=== PATIENT | female | born 1940 | race Asian ===

== ENCOUNTER → 2024-02-25 | Outpatient (CLI) | payer OTHER, SELFPAY ==
[2024-02-25 11:15] LABS: Collection Type, Urine Clean Catch
[2024-02-25 11:40] LABS: Basophils % (Auto) 0 % (0-2.5); Eosinophils # (Auto) 0.1 Thou/mm3 (0.0-0.5); Eosinophils % (Auto) 2 % (0-10); Hematocrit 40.2 % (36.0-46.0); Hemoglobin 12.4 g/dL (12.0-16.0); Immature Granulocytes % (Auto) 0 % (0-0); Immature Granulocytes Auto 0.02 Thou/mm3 (0.00-0.00); Lymphocytes # (Auto) 0.7 Thou/mm3 (1.0-4.8); Lymphocytes % (Auto) 12 % (10-50); Mean Corpuscular HGB Conc 30.8 g/dl (31.0-37.0); Mean Corpuscular Hemoglobin 30.3 pg (25.0-35.0); Mean Corpuscular Volume 98 fL (80-100); Monocytes # (Auto) 0.5 Thou/mm3 (0.0-0.8); Monocytes % (Auto) 8 % (0-12); Neutrophils # (Auto) 4.4 Thou/mm3 (1.8-7.7); Neutrophils % (Auto) 77 % (37-80); Nucleated Red Blood Cell % 0 /100 WBC (0); Platelet Count 185 Thou/mm3 (140-440); RDW Standard Deviation 54.2 fL (36.4-46.3); Red Blood Count 4.09 Miln/mm3 (4.00-5.20); White Blood Count 5.6 Thou/mm3 (3.6-11.0)
[2024-02-25 11:48] LABS: Bacteria,Urine Rare; Bilirubin,Urine Negative (Negative); Blood,Urine 1+ (Negative); Clarity,Urine Clear (Clear/Hazy); Color,Urine Yellow (Lt Yel-Yel); Glucose, Urine Negative (Negative); Granular Casts,Urine < 1 /hpf (0-1); Hyaline Casts,Urine < 1 /hpf (0-1); Ketones,Urine Negative (Negative); Leukocyte Esterase,Urine Negative (Negative); Nitrite,Urine Negative (Negative); Protein,Urine 2+ (Neg - Trace); RBC,Urine 3 /hpf (0-3); Specific Gravity,Urine 1.017 (1.001-1.035); Squamous Epithelial Cell,Urine < 1 /hpf (0-5); Transitional Epi Cells,Urine < 1 /hpf (0-5); Urobilinogen,Urine Negative mg/dL (0.0-1.0); WBC,Urine 1 /hpf (0-5)
[2024-02-25 12:00] LABS: Vitamin B12 1065 pg/mL (211-911); Vitamin D 25 Hydroxy Total 29.3 ng/mL (7.3-40.2)
[2024-02-25 12:11] LABS: Alanine Aminotransferase 12 U/L (10-49); Albumin, Serum 4.3 gm/dL (3.4-4.8); Albumin/Globulin Ratio 1.3 (1.2-2.2); Alkaline Phosphatase 72 U/L (46-116); Anion Gap 9 (7-16); Aspartate Amino Transferase 25 U/L (0-34); BUN/Creatinine Ratio 14 Ratio (12-20); Blood Urea Nitrogen 21 mg/dL (9-23); Calcium 9.6 mg/dL (8.3-10.6); Calcium (Corrected) 9.6 mg/dL (8.5-10.1); Cardiac Risk Estimate 2.4 RATIO (3.7-5.6); Chloride 103 mMol/L (98-107); Cholesterol 180 mg/dL (132-200); Creatinine (Component) 1.5 mg/dL (0.6-1.3); Globulin 3.4 gm/dL (2.3-3.5); Glucose 140 mg/dL (74-106); HDL Cholesterol 74 mg/dL (40-60); LDL Cholesterol,Calculated 92 mg/dL (0-130); Osmolality,Calculated 289 (275-295); Potassium 4.4 mMol/L (3.4-5.1); Sodium 143 mMol/L (136-145); Thyroid Stimulating Hormone 5.44 uIU/mL (0.55-4.78); Total Protein 7.7 gm/dL (5.7-8.2); Triglycerides 69 mg/dL (30-150); Uric Acid 8.4 mg/dL (3.1-7.8); eGFR 34 See Note
[2024-02-25 12:26] LABS: Bilirubin,Total 0.7 mg/dL (0.3-1.2)
[2024-03-02 23:33] LABS: Albumin 3.8 g/dL (3.8-4.8); Alpha-1-Globulin 0.3 g/dL (0.2-0.3); Alpha-2-Globulin 0.7 g/dL (0.5-0.9); Beta-1-Globulin 0.4 g/dL (0.4-0.6); Beta-2-globulin 0.5 g/dL (0.2-0.5); Gamma Globulin 1.7 g/dL (0.8-1.7)
[2024-03-03 07:03] LABS: Protein, total, serum 7.5 g/dL (6.1-8.1)
== END | disposition home or self-care (01) ==
LOC: COPL 10:11
PROVIDERS: PCP Internal Medicine; Referring Provider Internal Medicine Cardiovascular Disease; Visit Provider Internal Medicine Cardiovascular Disease
DX: I12.9 Hypertensive chronic kidney disease with stage 1 through stage 4 chronic kidney disease, or unspecified chronic kidney disease (principal); N18.30 Chronic kidney disease, stage 3 unspecified; E78.5 Hyperlipidemia, unspecified
CPT/HCPCS: 36415; 80053; 80061; 81001; 82306; 82607; 84155; 84165; 84443; 84550; 85025

== ENCOUNTER 2024-03-29 11:06 | Emergency (ER) | payer OTHER, SELFPAY ==
[2024-03-29 11:28] VITALS: BP 160/71; PULSE 82; RESP 16; TEMP 36.5; O2SAT 92
--- NOTE | 2024-03-29 11:30 | XR_ITS ---
Examination: CT maxillofacial, without intravenous contrast. 2-D sagittal reconstructions. 3-D reconstructions. Date and time of exam:March 29, 2024, 16 hours INDICATIONS: Patient fell today with injury to the face, facial bruising CTDI: vol (mGy):18 DLP: (mGycm):341 Technique: Multiple axial images of maxillofacial region, 3.0 mm slice thickness. 2-D sagittal and coronal reconstructions. 3-D reconstructions. Low dose protocols were performed. One or more of the following dose reduction techniques were used; automated exposure control, adjustment of the mA and/or KV according to patient size, use of iterative reconstruction technique. Findings: Soft tissue forehead hematoma at least 4.2 x 0.8 x 1.6 cm, soft tissue swelling extends anterior to the right optic globe Frontal bone frontal sinuses intact Orbital rims intact No nasal bone fracture No depression zygomatic arches Maxilla mandible intact IMPRESSION: Soft tissue forehead hematoma. No acute facial fracture
--- NOTE | 2024-03-29 11:30 | XR_ITS ---
Examination: CT brain head without contrast. 2-D sagittal coronal reconstructions Date and time of exam:March 29, 2024 1216 hours INDICATIONS: Patient fell today with injury to the head, head pain CTDI: vol (mGy):48.8 DLP: (mGycm):1013 Technique: Multiple CT axial sections of the brain have been obtained, 5 mm slice thickness. Contrast has not been administered. 2-D sagittal, coronal reconstructions have been obtained Low dose protocols were performed. One or more of the following dose reduction techniques were used; automated exposure control, adjustment of the mA and/or KV according to patient size, use of iterative reconstruction technique. Findings: No significant ventricular enlargement. Intra-axial or extra-axial hemorrhage density is not seen. No mass effect or midline shift Basal cisterns are not remarkable. Fourth ventricle is midline. Cranial vault intact. Right forehead scalp hematoma, soft tissue swelling anterior to the right optic lobe Impression: Negative for acute hemorrhage, mass effect or midline shift
--- NOTE | 2024-03-29 11:30 | XR_ITS ---
Examination: CT cervical spine without contrast 2-D sagittal reconstructions 2-D coronal reconstructions 3-D reconstructions. Exam date and time:March 29, 2024 1216 hours INDICATIONS: Patient fell today, ground-level fall with injury to the neck, neck pain COMPARISON: July 18, 2023 CTDI:vol (mGy) 13.3 DLP: (mGycm) 285 Technique: Multiple 2 mm axial sections of the cervical spine have been obtained. The coronal and sagittal reconstructions have been obtained. 3-D reconstructions have been obtained. Low dose protocols were performed. One or more of the following dose reduction techniques were used; automated exposure control, adjustment of the mA and/or KV according to patient size, use of iterative reconstruction technique. Findings: Axial sections demonstrate intact base of the skull. C1 exhibit satisfactory relationship to the odontoid. No acute cervical vertebral body fracture seen. Alignment posterior spinous processes satisfactory. Impression: No acute cervical fracture.
--- NOTE | 2024-03-29 11:32 | XR_ITS ---
Examination: Wrist, left 3 views Technique: Wrist AP, oblique, lateral 3 views Date and time of exam: March 29, 2024 and 50 hours INDICATIONS: Patient fell today with injury to the wrist, wrist pain FINDINGS: Severe osteopenia No acute fracture No dislocation IMPRESSION: No acute fracture
--- NOTE | 2024-03-29 11:32 | XR_ITS ---
Examination: Knee, right , 3 views Technique: Knee AP, lateral, oblique 3 views Date and time of exam: March 29, 2024 1150 hours INDICATIONS: Patient fell today with injury to the knee, knee pain FINDINGS: Significant osteopenia No fracture or dislocation Soft tissue swelling prepatellar IMPRESSION: No fracture
--- NOTE | 2024-03-29 11:32 | EDNOTE_ITS ---
ED General RME/HPI General Chief complaint: Fall Stated complaint: FACIAL TRAUMA SP FALL Time Seen by Provider: 03/29/24 11:30 Arrival date/time: 03/29/24 11:06 CC: Right sided facial pain HPI patient had a ground-level fall where she tripped. The patient is complaining of left wrist right knee and facial pain. Patient is on Eliquis denies LOC or ALOC no active bleeding at the time of the exam. Localized face pain is 3-4 out of 10 scale. Wrist and knee pain 1-2 on a 10 scale. Related Data Home Medications ?Medication ?Instructions ?Recorded ?Confirmed levothyroxine 50 mcg tablet 50 mcg PO QDAY 10/27/17 05/29/19 (Synthroid) losartan 100 mg tablet (Cozaar) 100 mg PO QDAY 10/27/17 05/29/19 albuterol sulfate 90 mcg/actuation 2 puff inhalation Q8H PRN SOB 05/28/19 05/29/19 aerosol inhaler (Ventolin HFA) allopurinol 300 mg tablet 300 mg PO QDAY 05/28/19 05/29/19 apixaban 5 mg tablet (Eliquis) 5 mg PO BID 05/28/19 05/29/19 fluticasone propionate 220 1 puff inhalation BID 05/28/19 05/28/19 mcg/actuation HFA aerosol inhaler (Flovent HFA) ferrous sulfate 325 mg (65 mg 325 mg PO BID 05/29/19 05/29/19 iron) tablet (Iron (ferrous sulfate)) Previous Rx's ?Medication ?Instructions ?Recorded furosemide 40 mg tablet (Lasix) 40 mg PO QDAY #30 tabs 04/22/23 Allergies Allergy/AdvReac Type Severity Reaction Status Date / Time Penicillins Allergy Unknown Verified 07/18/23 19:19 Review of Systems Review of Systems Narrative Review of Systems: GEN: No fever, no chills, no weight loss EYES: No discharge, no visual changes, no pain HEENT: No ear pain, no congestion, no sore throat PULM: No shortness of breath, no cough, no congestion CV: No chest pain, no dyspnea on exertion, no palpitations GI: No nausea, no vomiting, no diarrhea, no pain, no constipation : No frequency, no urgency, no dysuria MUSC/SKEL: + joint pain, no back pain SKIN: No rash PSYCH: No hallucinations, no depression HEME/LYMPH: No easy bleeding or bruising tendencies NEURO: No weakness, + headache Past Medical History Past Medical History NEUROLOGIC: Negative Seizures CARDIAC: Positive Cardiac Disorders, Atrial Fibrillation (on eliquis,carvedilol) and Hypertension; Negative Congestive Heart Failure RESPIRATORY: Positive Asthma; Negative Chronic Obstructive Pulmonary Disease (COPD) GENITOURINARY: Negative Renal Disease ENDOCRINE: Positive Hypothyroidism; Negative Diabetes Mellitus Type 1 or Diabetes Mellitus Type 2 OTHER HISTORY: Negative Autoimmune Disease, Blood Transfusions or Anesthesia Reactions Family History FAMILY HISTORY: Positive Family Respiratory Disorders (mother had asthma), Family Cardiac Disorders (step-father had heart problems), Family Cancer (sister has lump in breast had sx) and Family Surgery (sister has lump in breast had sx); Negative Family Psychiatric Problems, Family Gastrointestinal Problems or Family Anesthesia Reaction Surgical History SURGICAL: Positive Open Heart Surgery and Valve Replacement Social History SMOKING STATUS: Never smoker SECOND HAND EXPOSURE: No ED Exam Narrative Physical exam: [General: Mild discomfort not in any acute distress Head normocephalic, no step-offs hematomas abrasion induration ulceration or depressions. HEENT: Eyes pupils are PERRLA EOMs are intact nose no rhinorrhea nasal right sided abrasions. Forehead: Significant hematoma to the right forehead with partial-thickness abrasions no active bleeding or lacerations. Mouth pink moist membranes poor dentition uvula is midline swallow symmetrical phonation is normal no active bleeding from the mouth. Ears EACs are partially occluded with cerumen, no active bleeding. Right sided facial abrasions with a small hematoma, no other significant facial asymmetry. Mild tenderness to palpation. Neck is supple nontender full range of motion rotation flexion and extension. No tenderness to palpation of the spinous process of the cervical spine. Chest equal chest rise nontender to palpation Respiratory: Clear to auscultation no wheezes crackles or rubs CV: Rate rhythm is regular no murmurs rubs or clicks Abdomen is distended secondary to body habitus soft nontender no masses positive bowel sounds all 4 quadrants Back: No CVA tenderness no spinous process tenderness from cervical spine thoracic and lumbar spine Skin: Intact no petechiae rash induration ulceration or crepitus Extremities: Left wrist to full range of motion no obvious deformity, right knee, able to ambulate without complication no significant edema abrasions induration ulceration. Moving all other extremities against resistance cap refill less than 2 seconds neurosensory intact Neuro: Awake alert oriented x3 Glascow coma 15 no focal deficits] Course Quality Measures VTE prophylaxis Orders Category Date Time Status CT cervical spine wo con Stat Exams 03/29/24 11:[address] facial bones wo con Stat Exams 03/29/24 11:[address] head/brain wo con Stat Exams 03/29/24 11:30 Completed XR knee RT 3V Stat Exams 03/29/24 11:32 Completed XR wrist comp LT min 3V Stat Exams 03/29/24 11:32 Completed CBC Stat Lab 03/29/24 11:46 Completed CMP [Comprehensive Metabolic Panel] Stat Lab 03/29/24 11:46 Completed PT [Prothrombin Time with INR] Stat Lab 03/29/24 11:46 Completed PTT [Partial Thromboplastin Time] Stat Lab 03/29/24 11:46 Completed Vital Signs Vital signs: Vital Signs Temperature 97.7 F 03/29/24 11:28 Pulse Rate 82 03/29/24 11:28 Respiratory Rate 16 03/29/24 11:28 Blood Pressure 160/71 H 03/29/24 11:28 Pulse Oximetry (%) 92 L 03/29/24 11:28 Oxygen Delivery Method Room Air 03/29/24 11:28 [facility] Patient data External records reviewed:: [facility] previous records Clinical information provided by:: patient and friend Social determinants that could affect healthcare access:: none Patient has the following chronic illnesses:: Eliquis How is presenting disease/condition affected by chronic disease/condition?: e xacerbated by Evaluation data The following diagnostics were reviewed and interpreted by me:: lab results and radiology exam(s) Lab and/or radiology exams considered but not ordered:: CBC shows no acute leukocytosis anemia thrombocytopenia CMP shows no acute electrolyte imbalances renal impairment transaminitis or T. bili elevation CT of the head neck and face are negative for any acute fractures there is a right forehead hematoma. X-ray of the wrist and hip are negative as interpreted by me read by radiology for any acute fracture malalignment or dislocation. Interpretation Summary: Fall with facial contusion Medications Medications considered but not ordered:: None Medication administrations:: None Consultations Consultation(s) initiated? (list below): No Diagnosis Differential Diagnosis ED Complaint MDM: Ground-level fall, face contusion, forehead hematoma Most likely diagnosis given after review of the tests above:: Ground-level fall face contusion forehead hematoma wrist contusion knee contusion Admission Indicated Admission indicated?: not indicated Explain why admission is indicated or not indicated:: Stable for outpatient follow-up Admission Request Was there a request for admission?: No Disposition Plan Disposition Plan: Discharge Discharge Attestation Discharge Attestation: The patient and all family members were given an opportunity to ask questions and understood the discharge instructions. Discharge instructions specifically effects, indications for sooner follow up or return to the emergency department, and the expected course of current diagnosis. Patient condition: Stable Medical Decision Making Differential Diagnosis Differential Diagnosis: Ground-level fall, face contusion, forehead hematoma Lab Data 03/29/24 11:46 03/29/24 11:46 Labs: Lab Results 03/29/24 Range/Units 11:46 WBC 5.7 (3.6-11.0) Thou/mm3 RBC 3.93 L (4.00-5.20) Miln/mm3 Hgb 11.7 L (12.0-16.0) g/dL Hct 37.9 (36.0-46.0) % MCV 96 (80-100) fL MCH 29.8 (25.0-35.0) pg MCHC 30.9 L (31.0-37.0) g/dl RDW Std Deviation 52.5 H (36.4-46.3) fL Plt Count 165 (140-440) Thou/mm3 Neut % (Auto) 77 (37-80) % Lymph % (Auto) 12 (10-50) % [place] % (Auto) 8 (0-12) % Eos % (Auto) 3 (0-10) % Baso % (Auto) 0 (0-2.5) % Neut # (Auto) 4.3 (1.8-7.7) Thou/mm3 Lymph # (Auto) 0.7 L (1.0-4.8) Thou/mm3 [place] # (Auto) 0.5 (0.0-0.8) Thou/mm3 Eos # (Auto) 0.2 (0.0-0.5) Thou/mm3 Baso # (Auto) 0.0 (0.0-0.2) Thou/mm3 Immature Gran # (Auto) 0.03 H (0.00-0.00) Thou/mm3 Absolute Nucleated RBC 0.00 (0.00-0.00) Thou/mm3 Immature Gran % 1 H (0-0) % Nucleated RBC % 0 (0) /100 WBC PT 11.4 (9.0-12.2) Seconds INR 1.0 (0.9-1.3) APTT 32.2 (22.0-36.0) Seconds Sodium 138 (136-145) mMol/L Potassium 3.6 (3.4-5.1) mMol/L Chloride 102 (98-107) mMol/L Carbon Dioxide 27.0 (20.0-31.0) mMol/L Anion Gap 9 (7-16) BUN 37 H (9-23) mg/dL Creatinine 1.4 H (0.6-1.3) mg/dL Estim Creat Clear Calc Not Performed. eGFR 37 L (60 - ) See Note BUN/Creatinine Ratio 26 H (12-20) Ratio Glucose 135 H (74-106) mg/dL Calculated Osmolality 286 (275-295) Calcium 9.2 (8.3-10.6) mg/dL Corrected Calcium 9.2 (8.5-10.1) mg/dL Total Bilirubin 0.5 (0.3-1.2) mg/dL AST 15 (0-34) U/L ALT 15 (10-49) U/L Alkaline Phosphatase 68 (46-116) U/L Total Protein 7.9 (5.7-8.2) gm/dL Albumin 4.2 (3.4-4.8) gm/dL Globulin 3.7 H (2.3-3.5) gm/dL Albumin/Globulin Ratio 1.1 L (1.2-2.2) Discharge Plan Plan Patient Disposition: HOME (Self Care) Patient condition on transfer: Stable Prescriptions/Referrals Prescriptions/Med Rec: No Action levothyroxine [Synthroid] 50 mcg Tablet 50 mcg PO QDAY losartan [Cozaar] 100 mg Tablet 100 mg PO QDAY allopurinol 300 mg Tablet 300 mg PO QDAY Flovent HFA 220 mcg/actuation Hfa Aerosol Inhaler 1 puff inhalation BID albuterol sulfate [Ventolin HFA] 90 mcg/actuation Hfa Aerosol Inhaler 2 puff inhalation Q8H PRN (Reason: SOB) Eliquis 5 mg Tablet 5 mg PO BID ferrous sulfate [Iron (ferrous sulfate)] 325 mg (65 mg iron) Tablet 325 mg PO BID furosemide [Lasix] 40 mg tablet 40 mg PO QDAY Qty: 30 0RF Referrals: Yessy Diaz MD [Primary Care Provider] - In 1 week Problem List Clinical Impression: Ground-level fall, Contusion of face, Traumatic hematoma of forehead, Contusion of left wrist, Contusion of knee, right Patient/Caregiver Discharge Instructions Other Activity Instructions:: Take Tylenol for pain, use ice on the forehead hematoma it will take weeks to clear to clear completely. Education Materials: ED Contusion, Lower Extremity, ED Facial Contusion, ED Mechanical Fall, Bruises (Contusions) Additional Instructions: If there is a worsening of symptoms return the emergency room for further evaluation Print Language: Israeli Stand Alone Forms: Juliana Award Info., Patient Portal Info Letter PA/PIPE CLEANER Supervising Physician PA/PIPE CLEANER Supervising Physician: Phoenix Javier ENP
[2024-03-29 11:53] LABS: Basophils % (Auto) 0 % (0-2.5); Eosinophils # (Auto) 0.2 Thou/mm3 (0.0-0.5); Eosinophils % (Auto) 3 % (0-10); Hematocrit 37.9 % (36.0-46.0); Hemoglobin 11.7 g/dL (12.0-16.0); Immature Granulocytes % (Auto) 1 % (0-0); Immature Granulocytes Auto 0.03 Thou/mm3 (0.00-0.00); Lymphocytes # (Auto) 0.7 Thou/mm3 (1.0-4.8); Lymphocytes % (Auto) 12 % (10-50); Mean Corpuscular HGB Conc 30.9 g/dl (31.0-37.0); Mean Corpuscular Hemoglobin 29.8 pg (25.0-35.0); Mean Corpuscular Volume 96 fL (80-100); Monocytes # (Auto) 0.5 Thou/mm3 (0.0-0.8); Monocytes % (Auto) 8 % (0-12); Neutrophils # (Auto) 4.3 Thou/mm3 (1.8-7.7); Neutrophils % (Auto) 77 % (37-80); Nucleated Red Blood Cell % 0 /100 WBC (0); Platelet Count 165 Thou/mm3 (140-440); RDW Standard Deviation 52.5 fL (36.4-46.3); Red Blood Count 3.93 Miln/mm3 (4.00-5.20); White Blood Count 5.7 Thou/mm3 (3.6-11.0)
[2024-03-29 12:10] LABS: Partial Thromboplastin Time 32.2 Seconds (22.0-36.0); Prothrombin Time 11.4 Seconds (9.0-12.2)
[2024-03-29 12:13] LABS: Alanine Aminotransferase 15 U/L (10-49); Albumin, Serum 4.2 gm/dL (3.4-4.8); Albumin/Globulin Ratio 1.1 (1.2-2.2); Alkaline Phosphatase 68 U/L (46-116); Anion Gap 9 (7-16); Aspartate Amino Transferase 15 U/L (0-34); BUN/Creatinine Ratio 26 Ratio (12-20); Bilirubin,Total 0.5 mg/dL (0.3-1.2); Blood Urea Nitrogen 37 mg/dL (9-23); Calcium 9.2 mg/dL (8.3-10.6); Calcium (Corrected) 9.2 mg/dL (8.5-10.1); Chloride 102 mMol/L (98-107); Creatinine (Component) 1.4 mg/dL (0.6-1.3); Globulin 3.7 gm/dL (2.3-3.5); Glucose 135 mg/dL (74-106); Osmolality,Calculated 286 (275-295); Potassium 3.6 mMol/L (3.4-5.1); Sodium 138 mMol/L (136-145); Total Protein 7.9 gm/dL (5.7-8.2); eGFR 37 See Note
== END 2024-03-29 14:02 | disposition home or self-care (01) ==
PROVIDERS: Registered Nurse General Practice; Emergency Provider Emergency Medicine; PCP Internal Medicine
DX: S00.83XA Contusion of other part of head, initial encounter (principal); S60.212A Contusion of left wrist, initial encounter; S80.01XA Contusion of right knee, initial encounter; S19.9XXA Unspecified injury of neck, initial encounter; W01.0XXA Fall on same level from slipping, tripping and stumbling without subsequent striking against object, initial encounter
CPT/HCPCS: 36415; 70450; 70486; 72125; 73110; 73562; 80053; 85025; 85610; 85730; 99284

== ENCOUNTER → 2024-04-22 | Outpatient (CLI) | payer OTHER, SELFPAY ==
[2024-04-22 16:17] LABS: Anion Gap 11 (7-16); BUN/Creatinine Ratio 26 Ratio (12-20); Blood Urea Nitrogen 44 mg/dL (9-23); Calcium 8.9 mg/dL (8.3-10.6); Calcium (Corrected) 8.9 mg/dL (8.5-10.1); Carbon Dioxide 23.6 mMol/L (20.0-31.0); Chloride 102 mMol/L (98-107); Creatinine (Component) 1.7 mg/dL (0.6-1.3); Glucose 156 mg/dL (74-106); Osmolality,Calculated 288 (275-295); Phosphorous 3.3 mg/dL (2.4-5.1); Potassium 4.9 mMol/L (3.4-5.1); Sodium 137 mMol/L (136-145); eGFR 29 See Note
== END | disposition home or self-care (01) ==
LOC: COPL 14:51
PROVIDERS: PCP Internal Medicine; Referring Provider Internal Medicine Cardiovascular Disease; Visit Provider Internal Medicine Cardiovascular Disease
DX: I48.21 Permanent atrial fibrillation (principal); Z95.2 Presence of prosthetic heart valve; J45.909 Unspecified asthma, uncomplicated
CPT/HCPCS: 36415; 80069

== ENCOUNTER → 2024-05-14 | Outpatient (CLI) | payer OTHER, SELFPAY ==
[2024-05-14 11:45] LABS: Albumin, Serum 3.4 gm/dL (3.4-4.8); Anion Gap 8 (7-16); BUN/Creatinine Ratio 22 Ratio (12-20); Blood Urea Nitrogen 37 mg/dL (9-23); Calcium 8.6 mg/dL (8.3-10.6); Calcium (Corrected) 9.1 mg/dL (8.5-10.1); Carbon Dioxide 31.5 mMol/L (20.0-31.0); Chloride 98 mMol/L (98-107); Creatinine (Component) 1.7 mg/dL (0.6-1.3); Glucose 170 mg/dL (74-106); Osmolality,Calculated 286 (275-295); Phosphorous 2.8 mg/dL (2.4-5.1); Potassium 4.3 mMol/L (3.4-5.1); Sodium 137 mMol/L (136-145); eGFR 29 See Note
== END | disposition home or self-care (01) ==
LOC: COPL 10:39
PROVIDERS: PCP Internal Medicine; Referring Provider Internal Medicine; Visit Provider Internal Medicine
DX: N18.30 Chronic kidney disease, stage 3 unspecified (principal)
CPT/HCPCS: 36415; 80069

== ENCOUNTER → 2024-08-31 | Outpatient (CLI) | payer OTHER, SELFPAY ==
[2024-08-31 10:31] LABS: Collection Type, Urine Clean Catch; Squamous Epithelial Cell,Urine 0 /hpf (0-5)
[2024-08-31 10:44] LABS: Basophils % (Auto) 1 % (0-2.5); Eosinophils # (Auto) 0.1 Thou/mm3 (0.0-0.5); Eosinophils % (Auto) 2 % (0-10); Hematocrit 32.9 % (36.0-46.0); Hemoglobin 10.6 g/dL (12.0-16.0); Immature Granulocytes % (Auto) 0 % (0-0); Immature Granulocytes Auto 0.02 Thou/mm3 (0.00-0.00); Lymphocytes % (Auto) 16 % (10-50); Mean Corpuscular HGB Conc 32.2 g/dl (31.0-37.0); Mean Corpuscular Hemoglobin 29.8 pg (25.0-35.0); Mean Corpuscular Volume 92 fL (80-100); Monocytes # (Auto) 0.5 Thou/mm3 (0.0-0.8); Monocytes % (Auto) 7 % (0-12); Neutrophils # (Auto) 4.9 Thou/mm3 (1.8-7.7); Neutrophils % (Auto) 75 % (37-80); Nucleated Red Blood Cell % 0 /100 WBC (0); Platelet Count 181 Thou/mm3 (140-440); RDW Standard Deviation 55.7 fL (36.4-46.3); Red Blood Count 3.56 Miln/mm3 (4.00-5.20); White Blood Count 6.5 Thou/mm3 (3.6-11.0)
[2024-08-31 10:56] LABS: Bilirubin,Urine Negative (Negative); Blood,Urine Negative (Negative); Clarity,Urine Clear (Clear/Hazy); Color,Urine Lt-Yellow (Lt Yel-Yel); Glucose, Urine Negative (Negative); Ketones,Urine Negative (Negative); Leukocyte Esterase,Urine Negative (Negative); Nitrite,Urine Negative (Negative); PH,Urine 5.5 (5.0-7.0); Protein,Urine Negative (Neg - Trace); RBC,Urine 3 /hpf (0-3); Specific Gravity,Urine 1.013 (1.001-1.035); Urobilinogen,Urine Negative mg/dL (0.0-1.0); WBC,Urine < 1 /hpf (0-5)
[2024-08-31 11:05] LABS: Parathyroid Hormone Intact 64.2 pg/ml (18.5-88.0)
[2024-08-31 11:21] LABS: Creatinine MALB Rnd Ur 50 mg/dL (30-125); Microalbumin Creat Ratio 144 mg/gCrea (<30); Microalbumin, Random Urine 72 mg/L (0-300)
[2024-08-31 11:26] LABS: Alanine Aminotransferase 9 U/L (10-49); Albumin, Serum 4.4 gm/dL (3.4-4.8); Alkaline Phosphatase 60 U/L (46-116); Anion Gap 11 (7-16); BUN/Creatinine Ratio 39 Ratio (12-20); Bilirubin,Direct 0.1 mg/dL (0.0-0.3); Bilirubin,Total 0.4 mg/dL (0.3-1.2); Blood Urea Nitrogen 82 mg/dL (9-23); Calcium 9.8 mg/dL (8.3-10.6); Carbon Dioxide 23.5 mMol/L (20.0-31.0); Chloride 101 mMol/L (98-107); Cholesterol 131 mg/dL (132-200); Creatinine (Component) 2.1 mg/dL (0.6-1.3); Glucose 115 mg/dL (74-106); HDL Cholesterol 65 mg/dL (40-60); LDL Cholesterol,Calculated 56 mg/dL (0-130); Osmolality,Calculated 295 (275-295); Phosphorous 4.2 mg/dL (2.4-5.1); Potassium 5.2 mMol/L (3.4-5.1); Sodium 135 mMol/L (136-145); Thyroid Stimulating Hormone 4.34 uIU/mL (0.55-4.78); Total Protein 8.1 gm/dL (5.7-8.2); Triglycerides 52 mg/dL (30-150); eGFR 23 See Note
== END | disposition home or self-care (01) ==
LOC: COPL 09:41
PROVIDERS: PCP Internal Medicine; Referring Provider Internal Medicine; Visit Provider Internal Medicine
DX: I12.9 Hypertensive chronic kidney disease with stage 1 through stage 4 chronic kidney disease, or unspecified chronic kidney disease (principal); N18.30 Chronic kidney disease, stage 3 unspecified; E78.5 Hyperlipidemia, unspecified
CPT/HCPCS: 36415; 80048; 80061; 80076; 81001; 82043; 82570; 83970; 84100; 84443; 85025

== ENCOUNTER → 2024-10-20 | Outpatient (CLI) | payer OTHER, SELFPAY ==
[2024-10-20 10:47] LABS: Albumin, Serum 4.1 gm/dL (3.4-4.8); Anion Gap 9 (7-16); BUN/Creatinine Ratio 30 Ratio (12-20); Blood Urea Nitrogen 72 mg/dL (9-23); Calcium 8.8 mg/dL (8.3-10.6); Calcium (Corrected) 8.8 mg/dL (8.5-10.1); Carbon Dioxide 20.1 mMol/L (20.0-31.0); Chloride 108 mMol/L (98-107); Creatinine (Component) 2.4 mg/dL (0.6-1.3); Glucose 115 mg/dL (74-106); Osmolality,Calculated 296 (275-295); Phosphorous 4.2 mg/dL (2.4-5.1); Potassium 5.4 mMol/L (3.4-5.1); Sodium 137 mMol/L (136-145); eGFR 19 See Note
== END | disposition home or self-care (01) ==
LOC: COPL 09:38
PROVIDERS: PCP Internal Medicine; Referring Provider Internal Medicine; Visit Provider Internal Medicine
DX: N17.9 Acute kidney failure, unspecified (principal)
CPT/HCPCS: 36415; 80069

== ENCOUNTER → 2024-11-29 | Outpatient (CLI) | payer OTHER, SELFPAY ==
[2024-11-29 11:14] LABS: Basophils # (Auto) 0.0 Thou/mm3 (0.0-0.2); Basophils % (Auto) 0 % (0-2.5); Eosinophils # (Auto) 0.1 Thou/mm3 (0.0-0.5); Eosinophils % (Auto) 1 % (0-10); Hematocrit 34.9 % (36.0-46.0); Hemoglobin 11.0 g/dL (12.0-16.0); Immature Granulocytes Auto 0.05 Thou/mm3 (0.00-0.00); Lymphocytes # (Auto) 0.6 Thou/mm3 (1.0-4.8); Lymphocytes % (Auto) 6 % (10-50); Mean Corpuscular HGB Conc 31.5 g/dl (31.0-37.0); Mean Corpuscular Hemoglobin 32.6 pg (25.0-35.0); Mean Corpuscular Volume 104 fL (80-100); Monocytes # (Auto) 0.7 Thou/mm3 (0.0-0.8); Monocytes % (Auto) 8 % (0-12); Neutrophils # (Auto) 8.1 Thou/mm3 (1.8-7.7); Neutrophils % (Auto) 85 % (37-80); Nucleated Red Blood Cell # 0.00 Thou/mm3 (0.00-0.00); Nucleated Red Blood Cell % 0 /100 WBC (0); Platelet Count 147 Thou/mm3 (140-440); RDW Standard Deviation 60.2 fL (36.4-46.3); Red Blood Count 3.37 Miln/mm3 (4.00-5.20); White Blood Count 9.6 Thou/mm3 (3.6-11.0)
[2024-11-29 11:31] LABS: Albumin, Serum 4.3 gm/dL (3.4-4.8); Anion Gap 10 (7-16); BUN/Creatinine Ratio 24 Ratio (12-20); Blood Urea Nitrogen 52 mg/dL (9-23); Calcium 9.5 mg/dL (8.3-10.6); Calcium (Corrected) 9.5 mg/dL (8.5-10.1); Carbon Dioxide 20.2 mMol/L (20.0-31.0); Chloride 107 mMol/L (98-107); Creatinine (Component) 2.2 mg/dL (0.6-1.3); Glucose 107 mg/dL (74-106); Osmolality,Calculated 287 (275-295); Phosphorous 4.1 mg/dL (2.4-5.1); Potassium 5.4 mMol/L (3.4-5.1); Sodium 137 mMol/L (136-145); eGFR 21 See Note
== END | disposition home or self-care (01) ==
LOC: COPL 09:38
PROVIDERS: PCP Internal Medicine; Referring Provider Internal Medicine; Visit Provider Internal Medicine
DX: N17.9 Acute kidney failure, unspecified (principal); I10 Essential (primary) hypertension
CPT/HCPCS: 36415; 80069; 85025

== ENCOUNTER → 2024-12-27 | Outpatient (CLI) | payer OTHER, SELFPAY ==
[2024-12-27 11:46] LABS: Albumin, Serum 4.6 gm/dL (3.4-4.8); Anion Gap 11 (7-16); BUN/Creatinine Ratio 36 Ratio (12-20); Blood Urea Nitrogen 69 mg/dL (9-23); Calcium 9.8 mg/dL (8.3-10.6); Calcium (Corrected) 9.8 mg/dL (8.5-10.1); Carbon Dioxide 18.6 mMol/L (20.0-31.0); Chloride 106 mMol/L (98-107); Creatinine (Component) 1.9 mg/dL (0.6-1.3); Glucose 137 mg/dL (74-106); Osmolality,Calculated 294 (275-295); Phosphorous 4.7 mg/dL (2.4-5.1); Potassium 5.1 mMol/L (3.4-5.1); Sodium 136 mMol/L (136-145); eGFR 26 See Note
== END | disposition home or self-care (01) ==
LOC: COPL 10:26
PROVIDERS: PCP Internal Medicine; Referring Provider Internal Medicine Cardiovascular Disease; Visit Provider Internal Medicine
DX: N17.9 Acute kidney failure, unspecified (principal)
CPT/HCPCS: 36415; 80069

== ENCOUNTER → 2025-02-23 | Outpatient (CLI) | payer OTHER, SELFPAY ==
[2025-02-23 16:33] LABS: Collection Type, Urine Clean Catch
[2025-02-23 16:35] LABS: Basophils # (Auto) 0.0 Thou/mm3 (0.0-0.2); Basophils % (Auto) 0 % (0-2.5); Eosinophils # (Auto) 0.2 Thou/mm3 (0.0-0.5); Eosinophils % (Auto) 3 % (0-10); Hematocrit 35.2 % (36.0-46.0); Hemoglobin 10.9 g/dL (12.0-16.0); Immature Granulocytes Auto 0.03 Thou/mm3 (0.00-0.00); Lymphocytes # (Auto) 0.7 Thou/mm3 (1.0-4.8); Lymphocytes % (Auto) 9 % (10-50); Mean Corpuscular HGB Conc 31.0 g/dl (31.0-37.0); Mean Corpuscular Hemoglobin 32.1 pg (25.0-35.0); Mean Corpuscular Volume 104 fL (80-100); Monocytes # (Auto) 0.5 Thou/mm3 (0.0-0.8); Monocytes % (Auto) 6 % (0-12); Neutrophils # (Auto) 6.8 Thou/mm3 (1.8-7.7); Neutrophils % (Auto) 82 % (37-80); Nucleated Red Blood Cell # 0.00 Thou/mm3 (0.00-0.00); Nucleated Red Blood Cell % 0 /100 WBC (0); Platelet Count 172 Thou/mm3 (140-440); RDW Standard Deviation 53.5 fL (36.4-46.3); Red Blood Count 3.40 Miln/mm3 (4.00-5.20); White Blood Count 8.3 Thou/mm3 (3.6-11.0)
[2025-02-23 16:38] LABS: Parathyroid Hormone Intact 126.0 pg/ml (18.5-88.0)
[2025-02-23 16:39] LABS: Albumin, Serum 4.6 gm/dL (3.4-4.8); Anion Gap 10 (7-16); BUN/Creatinine Ratio 35 Ratio (12-20); Blood Urea Nitrogen 70 mg/dL (9-23); Calcium 9.5 mg/dL (8.3-10.6); Calcium (Corrected) 9.5 mg/dL (8.5-10.1); Carbon Dioxide 26.6 mMol/L (20.0-31.0); Chloride 106 mMol/L (98-107); Creatinine (Component) 2.0 mg/dL (0.6-1.3); Glucose 122 mg/dL (74-106); Osmolality,Calculated 306 (275-295); Phosphorous 4.0 mg/dL (2.4-5.1); Potassium 5.1 mMol/L (3.4-5.1); Sodium 143 mMol/L (136-145); eGFR 24 See Note
[2025-02-23 17:43] LABS: Bilirubin,Urine Negative (Negative); Blood,Urine Trace (Negative); Clarity,Urine Clear (Clear/Hazy); Color,Urine Colorless (Lt Yel-Yel); Glucose, Urine Negative (Negative); Ketones,Urine Negative (Negative); Leukocyte Esterase,Urine Negative (Negative); Nitrite,Urine Negative (Negative); PH,Urine 6.0 (5.0-7.0); Protein,Urine Negative (Neg - Trace); RBC,Urine 2 /hpf (0-3); Specific Gravity,Urine 1.009 (1.001-1.035); Squamous Epithelial Cell,Urine < 1 /hpf (0-5); Urobilinogen,Urine Negative mg/dL (0.0-1.0); WBC,Urine 1 /hpf (0-5)
[2025-02-23 18:03] LABS: Creatinine MALB Rnd Ur 21 mg/dL (30-125); Microalbumin Creat Ratio 371 mg/gCrea (<30); Microalbumin, Random Urine 78 mg/L (0-300)
== END | disposition home or self-care (01) ==
LOC: COPL 14:49
PROVIDERS: PCP Internal Medicine; Referring Provider Internal Medicine Cardiovascular Disease; Visit Provider Internal Medicine Cardiovascular Disease
DX: N17.9 Acute kidney failure, unspecified (principal)
CPT/HCPCS: 36415; 80069; 81001; 82043; 82570; 83970; 85025

== ENCOUNTER 2025-03-01 14:26 | Inpatient (IN) | payer OTHER, MEDICARE, SELFPAY ==
[2025-03-01] VITALS (12 sets, daily range): BP systolic 92–158; BP diastolic 57–100; PULSE 95–157; RESP 16–20; TEMP 36.6–37.1; O2SAT 9–100
--- NOTE | 2025-03-01 14:40 | XR_ITS ---
EXAMINATION: AP chest single view TECHNIQUE: Portable sitting AP chest single view Date and time: March 01, 2025, 1519 hours INDICATIONS: Chest pain shortness of breath today. FINDINGS: Mild enlargement cardiac contour Prominent vascular congestion Aortic valve prosthesis Mild septal edema at the lung bases IMPRESSION: Mild heart failure
--- NOTE | 2025-03-01 14:40 | EKG_ITS ---
[facility] Test Date: 2025-03-01 Pat Name: HALLE EASLEY Department: Room: - Gender: Female Desktop Specialist: : [id number] Requested By: Hosea Luevano Order Number: [id number] Reading MD: Hosea Luevano Measurements Intervals Fowler Rate: 153 P: ID: QRS: 21 QRSD: 81 T: 99 QT: 278 QTc: 444 Interpretive Statements ATRIAL FIBRILLATION WITH RAPID VENTRICULAR RESPONSE ABNORMAL QRS-T ANGLE [QRS-T AXIS DIFFERENCE > 60] CRITICAL TEST RESULT Compared to ECG 07/19/2023 16:56:36 Myocardial infarct finding no longer present /store/[email or web address]/[id number]
--- NOTE | 2025-03-01 14:42 | PD.EDRME ---
Rapid Medical Screening Exam RME Arrival date/time: 03/01/25 14:26 84 y/o female arrives at the ed today with c/o cp with tachycardia Chief Complaint: Arrhythmia/Palpitations Time Seen by Provider: 03/01/25 14:30 Vital signs: Vital Signs Temperature 97.8 F 03/01/25 14:36 Pulse Rate 155 H 03/01/25 14:36 Respiratory Rate 20 03/01/25 14:36 Blood Pressure 158/100 H 03/01/25 14:36 Pulse Oximetry (%) 95 03/01/25 14:36 Oxygen Delivery Method Room Air 03/01/25 14:36 Exam: On exam, patient had RLE pain complaints and noted tachycardia Clinical Impression: Labs and imaging ordered
--- NOTE | 2025-03-01 14:45 | XR_ITS ---
Examination: Duplex scan of the lower extremity, unilateral left lower extremity Date and time of exam: 03/01/2025 at 3:34 p.m. Clinical findings: Left lower extremity swelling and edema for 1 month Technique: Duplex scan of the extremity veins using B-mode/grayscale imaging and Doppler spectral analysis and color flow Attention is directed to internal echogenicity, compression and augmentation involving these veins, color flow assessment, spectral analysis Comparison is made with duplex ultrasound of the left lower extremity on 03/12/2023 Findings: Major deep venous structures in the extremity demonstrate normal course and caliber. There is no evidence of deep vein thrombosis. Normal color flow and spectral analysis and normal compressibility. There is mild definite soft tissue edema seen in the left calf. Impression: Negative for DVT..
[2025-03-01 15:13] LABS: Basophils # (Auto) 0.0 Thou/mm3 (0.0-0.2); Basophils % (Auto) 0 % (0-2.5); Eosinophils # (Auto) 0.1 Thou/mm3 (0.0-0.5); Eosinophils % (Auto) 1 % (0-10); Hematocrit 33.7 % (36.0-46.0); Hemoglobin 10.7 g/dL (12.0-16.0); Immature Granulocytes Auto 0.02 Thou/mm3 (0.00-0.00); Lymphocytes # (Auto) 0.6 Thou/mm3 (1.0-4.8); Lymphocytes % (Auto) 9 % (10-50); Mean Corpuscular HGB Conc 31.8 g/dl (31.0-37.0); Mean Corpuscular Hemoglobin 31.6 pg (25.0-35.0); Mean Corpuscular Volume 99 fL (80-100); Monocytes # (Auto) 0.5 Thou/mm3 (0.0-0.8); Monocytes % (Auto) 8 % (0-12); Neutrophils # (Auto) 5.4 Thou/mm3 (1.8-7.7); Neutrophils % (Auto) 81 % (37-80); Nucleated Red Blood Cell # 0.00 Thou/mm3 (0.00-0.00); Nucleated Red Blood Cell % 0 /100 WBC (0); Platelet Count 170 Thou/mm3 (140-440); RDW Standard Deviation 51.7 fL (36.4-46.3); Red Blood Count 3.39 Miln/mm3 (4.00-5.20); White Blood Count 6.7 Thou/mm3 (3.6-11.0)
--- NOTE | 2025-03-01 15:13 | PD.EDARRY ---
ED Arrhythmia Palp. RME/HPI General Chief Complaint: Arrhythmia/Palpitations Stated Complaint: TACHYCARDIA 158; SWELLING IN FEET/ANKLES Time Seen by Provider: 03/01/25 14:30 Arrival date/time: 03/01/25 14:26 RME / HPI RME / HPI narrative: 03/01/25 14:26 84 y/o female arrives at the ed today with c/o cp with tachycardia DR. NICHOLAS MAIN ED EVALUATION: 84 year old female with history of atrial fibrillation on Eliquis, congestive heart failure, s/p surgical aortic valve replacement, hypertension, hypothyroidism presents to the ED sent by her PCP Dr. Diaz for further management of anasarca and elevated BUN/Creatinine at 74/2.0. It was also noted the patients HR was 152 and blood pressure 123/78 in the office. In the ED, patient reports swelling to feet and ankles. No other symptoms reported. Current medication list include: AM Lasix and Bumex, alternates every week Levothyroxine Spiranolactone Losartan NOON Eliquis Iron Diltiazem PM Allopurinol Eliquis Aspirin Exam: On exam, patient had RLE pain complaints and noted tachycardia Impression: Labs and imaging ordered Related Data Home Medications ?Medication ?Instructions ?Recorded ?Confirmed levothyroxine 50 mcg tablet 50 mcg PO QDAY 10/27/17 05/29/19 (Synthroid) losartan 100 mg tablet (Cozaar) 100 mg PO QDAY 10/27/17 05/29/19 albuterol sulfate 90 mcg/actuation 2 puff inhalation Q8H PRN SOB 05/28/19 05/29/19 aerosol inhaler (Ventolin HFA) allopurinol 300 mg tablet 300 mg PO QDAY 05/28/19 05/29/19 apixaban 5 mg tablet (Eliquis) 5 mg PO BID 05/28/19 05/29/19 fluticasone propionate 220 1 puff inhalation BID 05/28/19 05/28/19 mcg/actuation HFA aerosol inhaler (Flovent HFA) ferrous sulfate 325 mg (65 mg 325 mg PO BID 05/29/19 05/29/19 iron) tablet (Iron (ferrous sulfate)) Previous Rx's ?Medication ?Instructions ?Recorded furosemide 40 mg tablet (Lasix) 40 mg PO QDAY #30 tabs 04/22/23 Allergies Allergy/AdvReac Type Severity Reaction Status Date / Time Penicillins Allergy Unknown Verified 03/01/25 14:30 Review of Systems Review of Systems Systems Reviewed: All systems reviewed, normal except as documented Past Medical History Past Medical History CARDIAC: Positive Cardiac Disorders, Atrial Fibrillation and Hypertension RESPIRATORY: Positive Asthma ENDOCRINE: Positive Hypothyroidism Family History FAMILY HISTORY: Positive Family Respiratory Disorders, Family Cardiac Disorders, Family Cancer and Family Surgery Surgical History SURGICAL: Positive Open Heart Surgery and Valve Replacement Social History SMOKING STATUS: Never smoker SECOND HAND EXPOSURE: No ED Exam Narrative Physical exam: Generally patient is alert elderly appearing female but appearing younger than stated age and in no obvious distress heart shows an irregularly irregular rhythm with tachycardic rate, lungs clear to auscultation equal bilaterally, abdomen soft bowel sounds present also nontender extremities show lower extremity edema neurologic exam showed Livingston Coma Scale of 15 without focal motor deficit. Course Quality Measures none Orders Category Date Time Status Alarm Signaler NOW Care 03/01/25 14:40 Active EKG (ED ONLY) *Do not use* NOW Care 03/01/25 14:40 Completed EKG (ED Only) Stat Exams 03/01/25 14:40 Draft US venous doppler LE LT Stat Exams 03/01/25 14:45 Ordered XR chest 1V portable Stat Exams 03/01/25 14:40 Ordered B-Type Natriuretic Peptide Stat Lab 03/01/25 15:02 Received CBC Stat Lab 03/01/25 15:02 Received Comprehensive Metabolic Panel Stat Lab 03/01/25 15:02 Received Magnesium Stat Lab 03/01/25 15:02 Received Partial Thromboplastin Time Stat Lab 03/01/25 15:02 Received Prothrombin Time with INR Stat Lab 03/01/25 15:02 Received Troponin I Stat Lab 03/01/25 15:02 Received Urinalysis, C/S if Indicated Stat Lab 03/01/25 14:40 Ordered Vital Signs Vital signs: Vital Signs Temperature 97.8 F 03/01/25 14:36 Pulse Rate 155 H 03/01/25 14:36 Respiratory Rate 20 03/01/25 14:36 Blood Pressure 158/100 H 03/01/25 14:36 Pulse Oximetry (%) 95 03/01/25 14:36 Oxygen Delivery Method Room Air 03/01/25 14:36 Arrhythmia/Palpitations MDM Narrative MDM Narrative:: Josie Claire am scribing for and in the presence of Dr. Nicholas. Dr Diaz has apparently sent this patient in to be admitted to the hospital for anasarca and for her atrial fibrillation with rapid ventricular response. Dr. Diaz on a note asked for Bumex IV to be given. BUN and creatinine were elevated. Potassium is elevated as well at 5.6. For hyperkalemia the patient received 10 mg of albuterol as well as 5 units regular insulin IV after 1 amp of D50 IV. Patient also received calcium gluconate 1000 mg IV. Patient given Bumex 2 mg IV. For the atrial fibrillation with rapid ventricular response which the patient has a history of, the patient received diltiazem 20 mg IV which helped decrease the heart rate from 150s to 130s. Second dose of diltiazem at 20 mg IV helped decrease the heart rate to the 90s. Patient remained in atrial fibrillation. Patient already is on Eliquis. I discussed this case with the hospitalist and the patient will be admitted to the hospital for further treatment and evaluation. Patient data External records reviewed:: [facility] previous records Clinical information provided by:: patient Social determinants that could affect healthcare access:: none Patient has the following chronic illnesses:: atrial fibrillation on Eliquis, congestive heart failure, s/p surgical aortic valve replacement, hypertension, hypothyroidism How is presenting disease/condition affected by chronic disease/condition?: exacerbated by Evaluation data The following diagnostics were reviewed and interpreted by me:: lab results, radiology exam(s) and EKG tracing(s) Lab and/or radiology exams considered but not ordered:: None Interpretation Summary: Ordering Physician: Hosea Palomino PA-C Date of Service: 03/01/25 Procedure(s): XR chest 1V portable Accession Number(s): [id number] cc: Hosea Palomino PA-C; Preston Mcpherson MD; Yessy Diaz MD~ EXAMINATION: AP chest single view TECHNIQUE: Portable sitting AP chest single view Date and time: March 01, 2025, 1519 hours INDICATIONS: Chest pain shortness of breath today. FINDINGS: Mild enlargement cardiac contour Prominent vascular congestion Aortic valve prosthesis Mild septal edema at the lung bases IMPRESSION: Mild heart failure Dictated By: Preston Mcpherson MD Signed By: <Electronically signed by Preston Mcpherson MD in OV> 03/01/25 1533 Ordering Physician: Hosea Palomino PA-C Date of Service: 03/01/25 Procedure(s): US venous doppler LE LT Accession Number(s): [id number] cc: Hosea Palomino PA-C; Preston Devi MD; Yessy Diaz MD~ Examination: Duplex scan of the lower extremity, unilateral left lower extremity Date and time of exam: 03/01/2025 at 3:34 p.m. Clinical findings: Left lower extremity swelling and edema for 1 month Technique: Duplex scan of the extremity veins using B-mode/grayscale imaging and Doppler spectral analysis and color flow Attention is directed to internal echogenicity, compression and augmentation involving these veins, color flow assessment, spectral analysis Comparison is made with duplex ultrasound of the left lower extremity on 03/12/2023 Findings: Major deep venous structures in the extremity demonstrate normal course and caliber. There is no evidence of deep vein thrombosis. Normal color flow and spectral analysis and normal compressibility. There is mild definite soft tissue edema seen in the left calf. Impression: Negative for DVT.. Dictated By: Preston Devi MD Signed By: <Electronically signed by Preston Devi MD in OV> 03/01/25 1615 Medications / Prescriptions Medications or Prescriptions considered but not ordered:: None Medication administrations:: None Consultations Consultation(s) initiated? (list below): Yes Consultation #1 (Physician, Specialty, Details): See MDM Diagnosis Differential diagnosis arrhythmia/palpitations: sinus tachycardia, artial fibrillation, artial flutter and supraventricular tachycardia Most likely diagnosis given after review of the tests above:: None Admission Indicated Admission indicated?: indicated Admission Request Was there a request for admission?: Yes Admission Attestation Admission request attestation: Discussed case with [] from Hospitalist service regarding admission. Discussed patients ED course, exam findings, labs, and radiology results. The Hospitalist [agrees,declines] to accept the patient for admission. Disposition Plan Disposition Plan: Admit Critical Care Time Critical Care Time Critical Care Time: Yes Total Critical Care Time (min.): 35 Attestation: Excluding other billable procedures Discharge Plan Plan Patient Disposition: Admit Acute Care w/in Hospital Prescriptions/Referrals Prescriptions/Med Rec: No Action levothyroxine [Synthroid] 50 mcg Tablet 50 mcg PO QDAY losartan [Cozaar] 100 mg Tablet 100 mg PO QDAY allopurinol 300 mg Tablet 300 mg PO QDAY Flovent HFA 220 mcg/actuation Hfa Aerosol Inhaler 1 puff inhalation BID albuterol sulfate [Ventolin HFA] 90 mcg/actuation Hfa Aerosol Inhaler 2 puff inhalation Q8H PRN (Reason: SOB) Eliquis 5 mg Tablet 5 mg PO BID ferrous sulfate [Iron (ferrous sulfate)] 325 mg (65 mg iron) Tablet 325 mg PO BID furosemide [Lasix] 40 mg tablet 40 mg PO QDAY Qty: 30 0RF Referrals: Yessy Diaz MD [Primary Care Provider, Nephrology] - In 1 week Problem List Clinical Impression: Acute renal failure, Acute hyperkalemia, Atrial fibrillation with rapid ventricular response Patient/Caregiver Discharge Instructions Print Language: Samoan Stand Alone Forms: Juliana Award Info., Patient Portal Info Letter
[2025-03-01 15:23] LABS: INR 1.0 (0.9-1.3); Partial Thromboplastin Time 28.6 Seconds (22.0-36.0); Prothrombin Time 10.4 Seconds (9.0-12.2)
[2025-03-01] MEDS: DILTIAZEM INJ 5 MG/ML VIAL 5 ML 20 MG IV ×2 (15:26→16:22)
[2025-03-01 15:28] LABS: B-Type Natriuretic Peptide 246 pg/mL (0-100)
[2025-03-01 16:16] LABS: Alanine Aminotransferase 11 U/L (10-49); Albumin, Serum 4.6 gm/dL (3.4-4.8); Albumin/Globulin Ratio 1.3 (1.2-2.2); Alkaline Phosphatase 58 U/L (46-116); Anion Gap 13 (7-16); Aspartate Amino Transferase 24 U/L (0-34); BUN/Creatinine Ratio 40 Ratio (12-20); Bilirubin,Total 0.4 mg/dL (0.3-1.2); Blood Urea Nitrogen 93 mg/dL (9-23); Calcium 9.7 mg/dL (8.3-10.6); Calcium (Corrected) 9.7 mg/dL (8.5-10.1); Carbon Dioxide 15.6 mMol/L (20.0-31.0); Chloride 109 mMol/L (98-107); Creatinine (Component) 2.3 mg/dL (0.6-1.3); Globulin 3.5 gm/dL (2.3-3.5); Glucose 112 mg/dL (74-106); Magnesium 2.3 mg/dL (1.6-2.6); Osmolality,Calculated 305 (275-295); Potassium 5.6 mMol/L (3.4-5.1); Sodium 138 mMol/L (136-145); Thyroid Stimulating Hormone 6.64 uIU/mL (0.55-4.78); Total Protein 8.1 gm/dL (5.7-8.2); Troponin I 0.043 ng/mL (0.0-0.045); eGFR 20 See Note
[2025-03-01] MEDS: ALBUTEROL RT 2.5 MG/0.5 ML NEBU 10 MG INH (17:13)
[2025-03-01] MEDS: INSULIN HUM REGULAR 1 UNIT/0.01 ML (PER UNIT) 5 UNIT IV (17:17)
[2025-03-01] MEDS: DEXTROSE 50%-WATER INJ 50 ML SYRINGE IVP (17:23)
[2025-03-01] MEDS: BUMETANIDE INJ 0.25 MG/ML VIAL 4 ML 2 MG IVP (17:26)
[2025-03-01] MEDS: CALCIUM GLUC/NS 1000MG IVPB 1,000 MG/50 ML BAG 50 MG IV (18:12)
[2025-03-01] MEDS: ALBUTEROL/IPRATROPIUM (Duoneb) RT SOL 3 ML NEBU INH (19:29)
--- NOTE | 2025-03-01 21:11 | PD.NEPHHP ---
Documentation for date of: 03/01/25 History of Present Illness History of Present Illness Chief complaint: SOB, fatigue History of present illness: Ms. Washington is an 84 year-old [place]ian lady who is well-known to me from my practice with past medical history of bronchial asthma with recurrent episodes of exacerbation, COPD, extensive history of hyperuricemia/gout, - s/p TAVR, A-fib on Eliquis, hypertension, hypothyroidism, and history of congestive heart failure (under Dr. Hartley), CKD IV who lives along with her sister presented to [facility] with a chief complaint of SOB sent from my office due to anasarca. In my office patient was noted to have significant shortness of breath and tachycardia with a heart rate of 152. In the ED patient noted to be in A-fib with RVR. Blood pressure 92/75, heart rate 112. On OxyMask. Hemoglobin 10.7, platelets 170. Sodium 138, potassium 5.6, bicarbonate 15.6, BUN 93, creatinine 2.3, glucose 112, calcium 9.7, magnesium 2.3, LFTs normal, BNP 246, albumin 4.6, TSH 6.64 Venous Doppler ultrasound lower extremity negative. Chest x-ray showed congestive heart failure. EKG showed A-fib with RVR Home medications included albuterol, allopurinol, Eliquis, iron, Flovent, Lasix, levothyroxine, Cozaar, Cardizem Review of Systems Review of Systems Narrative Review of Systems: CONSTITUTIONAL: Patient denies any fever, chills. Complaining of fatigue, SOB HEENT: Facial puffiness noted CARDIOVASCULAR: Patient denies any chest pain. +++ swelling in the lower extremities. PULMONARY: Patient complaining of wheezing, shortness of breath, GASTROINTESTINAL: Patient denies any abdominal pain, constipation, nausea, vomiting, diarrhea. GENITOURINARY: Patient denies any urinary symptoms of burning or frequency or hematuria, denies any form in the urine. SKIN: bruises MUSCULOSKELETAL: in bed NEUROLOGICAL: Denies any neurological problems of strokes, seizures or confusion. Denies any memory problems. Past Medical History Past Medical History NEUROLOGIC: Negative Seizures CARDIAC: Positive Cardiac Disorders, Atrial Fibrillation and Hypertension; Negative Congestive Heart Failure RESPIRATORY: Positive Asthma; Negative Chronic Obstructive Pulmonary Disease (COPD) GENITOURINARY: Negative Renal Disease ENDOCRINE: Positive Hypothyroidism; Negative Diabetes Mellitus Type 1 or Diabetes Mellitus Type 2 OTHER HISTORY: Negative Autoimmune Disease, Blood Transfusions or Anesthesia Reactions Family History FAMILY HISTORY: Positive Family Respiratory Disorders, Family Cardiac Disorders, Family Cancer and Family Surgery; Negative Family Psychiatric Problems, Family Gastrointestinal Problems or Family Anesthesia Reaction Surgical History SURGICAL: Positive Open Heart Surgery and Valve Replacement Social History SMOKING STATUS: Never smoker SECOND HAND EXPOSURE: No Meds Home Medications and Allergies Home Medications ?Medication ?Instructions ?Recorded ?Confirmed ?Type levothyroxine 50 mcg tablet 50 mcg PO QDAY 10/27/17 05/29/19 History (Synthroid) losartan 100 mg tablet (Cozaar) 100 mg PO QDAY 10/27/17 05/29/19 History albuterol sulfate 90 mcg/actuation 2 puff inhalation Q8H PRN SOB 05/28/19 05/29/19 History aerosol inhaler (Ventolin HFA) allopurinol 300 mg tablet 300 mg PO QDAY 05/28/19 05/29/19 History apixaban 5 mg tablet (Eliquis) 5 mg PO BID 05/28/19 05/29/19 History fluticasone propionate 220 1 puff inhalation BID 05/28/19 05/28/19 History mcg/actuation HFA aerosol inhaler (Flovent HFA) ferrous sulfate 325 mg (65 mg 325 mg PO BID 05/29/19 05/29/19 History iron) tablet (Iron (ferrous sulfate)) Allergies Allergy/AdvReac Type Severity Reaction Status Date / Time Penicillins Allergy Unknown Verified 03/01/25 14:30 Exam Vital Signs Temp Pulse Resp BP Pulse Ox O2 Del Method O2 Flow Rate 36.8 C 112 H 18 92/75 97 Nasal Cannula 2 03/01/25 20:39 03/01/25 20:39 03/01/25 20:39 03/01/25 20:39 03/01/25 20:39 03/01/25 20:39 03/01/25 20:39 Narrative Exam GENERAL APPEARANCE: Patient seems to be very short of breath. Currently seen in the emergency department. Facial puffiness noted NECK: + JVD CARDIOVASCULAR: Heart irregular, valve click heard LUNGS/CHEST: Noted to have mild wheezing, bibasilar crackles ABDOMEN: Soft, nontender, nondistended. No masses. Normal bowel sounds. EXTREMITIES: 2-3+ edema noted in the lower extremities SKIN: Multiple bruises from Eliquis MUSCULOSKELETAL: Able to move all extremities NEUROLOGICAL : No neurological deficits. Alert and awake Results: Labs 03/01/25 15:02 03/01/25 15:02 Labs: Short CBC 03/01/25 Range/Units 15:02 WBC 6.7 (3.6-11.0) Thou/mm3 Hgb 10.7 L (12.0-16.0) g/dL Hct 33.7 L (36.0-46.0) % Plt Count 170 (140-440) Thou/mm3 BMP 03/01/25 15:02 Sodium 138 Potassium 5.6 H Chloride 109 H Carbon Dioxide 15.6 L BUN 93 H Creatinine 2.3 H Glucose 112 H Calcium 9.7 Cardiac Enzymes 03/01/25 Range/Units 15:02 Troponin I 0.043 (0.0-0.045) ng/mL Liver Function 03/01/25 Range/Units 15:02 Total Bilirubin 0.4 (0.3-1.2) mg/dL AST 24 (0-34) U/L ALT 11 (10-49) U/L Alkaline Phosphatase 58 (46-116) U/L Albumin 4.6 (3.4-4.8) gm/dL Assessment & Plan Assessment and plan (1) Acute on chronic renal insufficiency: Status: Acute Assessment and plan: Acute on chronic renal insufficiency secondary to prerenal azotemia. Patient has recurrent episodes of fluid overload and has been receiving diuretics twice daily. Recently increase the Lasix to twice daily. BUN/creatinine significantly elevated. Clinically patient looks rather hypervolemic. Underlying CKD from cardiorenal syndrome. Patient under the care of Dr. Hartley. Had a long conversation with patient and grandson that that she will need sequential ultrafiltration to prevent recurrent hospitalizations and with severe anasarca and worsening azotemia in the setting of diuretics. Spoke to Dr. Hartley. (2) Acute exacerbation of CHF (congestive heart failure): Status: Acute Assessment and plan: Continue with the diuretics-seems to be decompensated Will plan for sequential ultrafiltration in a.m. (3) Hypertension: Status: Acute Assessment and plan: Continue with diuretics, Cardizem. Blood pressure on the lower side-hold losartan low-dose (4) Hypothyroid: Status: Acute Assessment and plan: On levothyroxine (5) Diabetes: Status: Acute Assessment and plan: Patient seems to have diabetes. Not on any medications. Recall that she was taking glipizide in the past. A1c 6.2. LDL 77. No need for medications. Add consistent carb low diet (6) Atrial fibrillation with rapid ventricular response: Status: Acute Assessment and plan: On Cardizem. Eliquis held overnight for dialysis catheter placement (7) Acute hyperkalemia: Status: Acute Assessment and plan: Bumex ordered. Will monitor potassium closely. (8) COPD (chronic obstructive pulmonary disease): Status: Acute Assessment and plan: DuoNeb ordered Additional Assessment & Plan Additional Plan: CODE STATUS full code Disposition Home with home health DVT prophylaxis on Eliquis-held today for dialysis catheter placement GI prophylaxis not needed Quality Measures Quality Measures none Advance care planning discussed with:: patient
[2025-03-01 21:36] LABS: Collection Type, Urine Clean Catch
[2025-03-01 21:41] LABS: Bilirubin,Urine Negative (Negative); Blood,Urine Trace (Negative); Clarity,Urine Clear (Clear/Hazy); Color,Urine Colorless (Lt Yel-Yel); Glucose, Urine Negative (Negative); Hyaline Casts,Urine < 1 /hpf (0-1); Ketones,Urine Negative (Negative); Leukocyte Esterase,Urine Negative (Negative); Nitrite,Urine Positive (Negative); PH,Urine 6.0 (5.0-7.0); Protein,Urine Negative (Neg - Trace); RBC,Urine < 1 /hpf (0-3); Specific Gravity,Urine 1.008 (1.001-1.035); Squamous Epithelial Cell,Urine < 1 /hpf (0-5); Urobilinogen,Urine Negative mg/dL (0.0-1.0); WBC,Urine 1 /hpf (0-5)
[2025-03-01 21:50] LABS: Culture Indicated,Urine Yes
[2025-03-01] MEDS: CITRIC ACID/SODIUM CITR 15 ML UDC (BICITRA) 30 ML PO (23:50)
[2025-03-02] VITALS (16 sets, daily range): BP systolic 97–120; BP diastolic 50–77; PULSE 106–141; RESP 13–28; TEMP 36.1–36.6; O2SAT 95–100
[2025-03-02] MEDS: ALBUTEROL/IPRATROPIUM (Duoneb) RT SOL 3 ML NEBU INH ×4 (01:14→18:15)
--- NOTE | 2025-03-02 04:45 | EKG_ITS ---
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
[2025-03-02 05:22] LABS: Basophils # (Auto) 0.0 Thou/mm3 (0.0-0.2); Basophils % (Auto) 0 % (0-2.5); Eosinophils # (Auto) 0.1 Thou/mm3 (0.0-0.5); Eosinophils % (Auto) 2 % (0-10); Hematocrit 26.3 % (36.0-46.0); Immature Granulocytes Auto 0.02 Thou/mm3 (0.00-0.00); Lymphocytes # (Auto) 0.5 Thou/mm3 (1.0-4.8); Lymphocytes % (Auto) 9 % (10-50); Mean Corpuscular HGB Conc 32.3 g/dl (31.0-37.0); Mean Corpuscular Hemoglobin 32.0 pg (25.0-35.0); Mean Corpuscular Volume 99 fL (80-100); Monocytes # (Auto) 0.5 Thou/mm3 (0.0-0.8); Monocytes % (Auto) 10 % (0-12); Neutrophils # (Auto) 4.2 Thou/mm3 (1.8-7.7); Neutrophils % (Auto) 78 % (37-80); Nucleated Red Blood Cell # 0.00 Thou/mm3 (0.00-0.00); Nucleated Red Blood Cell % 0 /100 WBC (0); Platelet Count 139 Thou/mm3 (140-440); RDW Standard Deviation 51.8 fL (36.4-46.3); Red Blood Count 2.66 Miln/mm3 (4.00-5.20); White Blood Count 5.3 Thou/mm3 (3.6-11.0)
[2025-03-02 05:31] LABS: Hemoglobin 8.5 g/dL (12.0-16.0)
[2025-03-02 05:57] LABS: Alanine Aminotransferase 8 U/L (10-49); Albumin, Serum 3.6 gm/dL (3.4-4.8); Albumin/Globulin Ratio 1.3 (1.2-2.2); Alkaline Phosphatase 45 U/L (46-116); Anion Gap 12 (7-16); Aspartate Amino Transferase 19 U/L (0-34); BUN/Creatinine Ratio 42 Ratio (12-20); Bilirubin,Total 0.5 mg/dL (0.3-1.2); Blood Urea Nitrogen 89 mg/dL (9-23); Calcium 8.9 mg/dL (8.3-10.6); Calcium (Corrected) 9.2 mg/dL (8.5-10.1); Carbon Dioxide 18.8 mMol/L (20.0-31.0); Cardiac Risk Estimate 2.6 RATIO (3.7-5.6); Chloride 111 mMol/L (98-107); Cholesterol 140 mg/dL (132-200); Creatinine (Component) 2.1 mg/dL (0.6-1.3); Globulin 2.7 gm/dL (2.3-3.5); Glucose 103 mg/dL (74-106); HDL Cholesterol 53 mg/dL (40-60); LDL Cholesterol,Calculated 79 mg/dL (0-130); Magnesium 2.0 mg/dL (1.6-2.6); Osmolality,Calculated 310 (275-295); Phosphorous 5.9 mg/dL (2.4-5.1); Potassium 4.9 mMol/L (3.4-5.1); Sodium 142 mMol/L (136-145); Thyroid Stimulating Hormone 5.10 uIU/mL (0.55-4.78); Total Protein 6.3 gm/dL (5.7-8.2); Triglycerides 39 mg/dL (30-150); eGFR 23 See Note
[2025-03-02 06:22] LABS: Hepatitis A Antibody IgM Non Reactive (Non React); Hepatitis B Core Antibody IgM Non Reactive (Non React); Hepatitis B Surface Antigen Non Reactive (Non React); Hepatitis C Antibody Non Reactive (Non React)
[2025-03-02] MEDS: LEVOTHYROXINE SODIUM 25 MCG TABLET 50 MCG PO (06:29)
[2025-03-02] MEDS: DILTIAZEM INJ 5 MG/ML VIAL 5 ML IV (06:40)
[2025-03-02] MEDS: Magnesium Sulfate 2 GM Ivpb 2 GM/50 ML BAG IV (08:30)
[2025-03-02] MEDS: BUMETANIDE INJ 0.25 MG/ML VIAL 4 ML 2 MG IVP (08:31)
--- NOTE | 2025-03-02 08:41 | ECHO_ITS ---
Patient Info Name: Tessa Washington Age: 84 years : 1940 Gender: Female Ht: 157 cm Wt: 55 kg BSA: 1.55 m2 BP: 120 / 75 mmHg HR: 113 bpm Exam Date: 03/02/2025 2:46 PM Admit Date: 03/01/2025 Site: [facility] Room Number: [id number] Patient Status: I Exam Type: CA echo doppler complete Bellperson: Jesusita Stone Ordering Physician: Sergio Vasquez Study Info Indications prosthetic valve stensois av - Primary Location: [id number] Left Ventricular Outflow Tract Name Value Normal LVOT 2D LVOT Diameter 1.8 cm LVOT Doppler LVOT Peak Velocity 164 cm/s LVOT Mean Gradient 6 mmHg LVOT VTI 36 cm LVOT VTI/AV VTI Ratio 0.7 LVOT Stroke Volume 92 ml Pulmonic Valve Name Value Normal PV Doppler PV Peak Velocity 96 cm/s PV Regurgitation Doppler IN Peak End Diastolic Velocity 147 cm/s Mitral Valve Name Value Normal MV Doppler MV Mean Gradient 4 mmHg MV Decel Mora 599 cm/s2 MV PHT 80 ms MV Area (PHT) 2.8 cm2 4.0-5.0 MV Area (Cont Eq VTI) 2.0 cm2 MV Regurgitation Doppler MV EROA (PISA) 0.95 cm2 MR Volume (PISA) 139 ml MV Diastolic Function MV E Peak Velocity 164 cm/s Tricuspid Valve Name Value Normal TV Regurgitation Doppler TR Peak Velocity 335 cm/s Estimated PAP/RSVP RA Pressure 15 mmHg <=5 PA Systolic Pressure 60 mmHg <36 RV Systolic Pressure 60 mmHg <36 Aortic Valve Name Value Normal AV 2D/MM AV Cusp Sep (MM) 0.9 cm AV Doppler AV Peak Velocity 334 cm/s AV Mean Gradient 21 mmHg AV VTI 51 cm AV Area (Cont Eq VTI) 1.8 cm2 >=3.0 AV Area (Cont Eq Harlan) 1.2 cm2 AV DI (Harlan) 0.49 AV Regurgitation 2D LVOT Area 2.5 cm2 Ventricles Name Value Normal LV Dimensions 2D/MM IVS Diastolic Thickness (2D) 1.1 cm 0.6-0.9 LVID Diastole (2D) 5.0 cm 3.8-5.2 LVIW Diastolic Thickness (2D) 1.5 cm 0.6-0.9 LVID Systole (2D) 3.8 cm 2.2-3.5 LVOT Diameter 1.8 cm LV Mass (2D Cubed) 261.83 g 67.00-162.00 LV Mass Index (2D Cubed) 168 g/m2 43-95 Relative Wall Thickness (2D) 0.60 <=0.42 IVS/LVIW Diastolic Thickness (2D) 0.73 0.00-1.50 LV Fractional Shortening/Ejection Fraction 2D/MM LV Fractional Shortening (2D) 24 % 27-45 LV EF (2D Teichholz) 48 % Left Ventricle Left ventricular chamber dimension is normal. Left ventricular systolic function is normal with visually estimated ejection fraction of 50-55%. There is mild concentric hypertrophy noted in the left ventricle. Left ventricular segmental wall motion is normal. There is indeterminate diastolic function in the left ventricle. Right Ventricle Right ventricular chamber dimension is mildly enlarged. Right ventricular systolic function is reduced. D-Shaped ventricular septum in mid to late systole consistent with right ventricular volume overload. Left Atrium Left atrial chamber dimension is severely enlarged. Right Atrium Right atrial chamber dimension is severely enlarged. Aortic Valve The aortic valve is trileaflet. There is no aortic valve sclerosis. There is moderate aortic valve stenosis with a peak velocity of 334 cm/s, mean gradient of 21 mmHg, and aortic valve area of 1.8 cm2. There is no aortic valve regurgitation. Pulmonic Valve The pulmonic valve is normal. There is no pulmonic valve stenosis. There is moderate pulmonic regurgitation. Mitral Valve The mitral valve has a calcified annulus. There is no mitral valve stenosis. There is moderate to severe mitral valve regurgitation. Tricuspid Valve The tricuspid valve leaflets are normal. There is no tricuspid valve stenosis. There is moderate to severe tricuspid valve regurgitation. Pulmonary hypertension, estimated pulmonary arterial systolic pressure is 60 mmHg and systemic blood pressure of 120 mmHg in systole. Pericardium/Pleural The pericardium appears normal. There is no pericardial effusion. No pleural effusion visualized. Inferior Vena Cava Dilated inferior vena cava with >50% collapse upon inspiration consistent with normal right atrial pressure, 15 mmHg. Aorta The aortic measurements are indexed to age and body surface area. The aortic root at the sinus of Valsalva is not well visualized. The prox ascending aorta is not well visualized. Summary 1. Left ventricle size is normal and systolic function is normal. Estimated ejection fraction is 50-55%. There is indeterminate diastolic function. There is mild concentric hypertrophy noted. 2. Right ventricle chamber size is mildly enlarged and systolic function is normal. Estimated RVSP is 60 mmHg with RAP 15. Severe HTN. 3. D-Shaped ventricular septum in mid to late systole consistent with right ventricular volume overload. 4. Moderate MAC severe 3+mitral regurgitation. Moderate mitral valve stenosis mean PG 16 mmHg, V max 2.1 m/s. 5. Aortic bioprosthesis mean 21 mmHg, v max 3.3 m/s. There is trace aortic valve bioprosthesis regurgitation. 6. There is moderate to severe tricuspid valve regurgitation. 7. The left atrium is severely enlarged. The right atrium is severely enlarged. 8. Dilated IVC measuring 2.4cm with estimated RA pressure 15 mmHg. Report Signatures Finalized by Sergio Vasquez on 03/03/2025 11:29 AM
--- NOTE | 2025-03-02 09:00 | PD.RESPRO ---
Documentation for date of: 03/02/25 Subjective Subjective Interval history: Chief complaint: SOB, fatigue History of present illness: Ms. Washington is an 84 year-old Turkish lady who is well-known to me from my practice with past medical history of bronchial asthma with recurrent episodes of exacerbation, COPD, extensive history of hyperuricemia/gout, - s/p TAVR, A-fib on Eliquis, hypertension, hypothyroidism, and history of congestive heart failure (under Dr. Hartley), CKD IV who lives along with her sister presented to [facility] with a chief complaint of SOB sent from my office due to anasarca. In my office patient was noted to have significant shortness of breath and tachycardia with a heart rate of 152. In the ED patient noted to be in A-fib with RVR. Blood pressure 92/75, heart rate 112. On OxyMask. Hemoglobin 10.7, platelets 170. Sodium 138, potassium 5.6, bicarbonate 15.6, BUN 93, creatinine 2.3, glucose 112, calcium 9.7, magnesium 2.3, LFTs normal, BNP 246, albumin 4.6, TSH 6.64 Venous Doppler ultrasound lower extremity negative. Chest x-ray showed congestive heart failure. EKG showed A-fib with RVR Home medications included albuterol, allopurinol, Eliquis, iron, Flovent, Lasix, levothyroxine, Cozaar, Cardizem 03/02/25: Patient seen and assessed at bedside. On telemetry. S/p diltiazem IV pushes. Overnight, patient remained in afib with HR 120-130s. Gave another IV diltiazem 5 mg x1 in AM, improved HR to 110s. Consulted inside sales agent Dr. Vasquez, started on amiodarone 200mg BID and atenolol 25 BID. Lower extremity edema and breathing improved significantly since yesterday. Potassium 4.9 (from 5.6), creatinine 2.1 (from 2.3), GFR 23. No need for dialysis as she improved with diuresis. Will continue IV Bumex 2mg daily, monitor on telemetry. Resume home Eliquis 2.5 mg BID, allopurinol, and levothyroxine. Exam Vital Signs Temp Pulse Resp BP Pulse Ox O2 Del Method O2 Flow Rate 97.4 F 99 13 99/65 95 Nasal Cannula 2 03/03/25 04:00 03/03/25 04:00 03/03/25 04:00 03/03/25 04:00 03/03/25 04:00 03/02/25 16:00 03/03/25 02:45 Narrative Exam Physical Exam General: Awake and in no acute distress. Conversational and non-toxic appearing. HEENT: Normocephalic, atraumatic, mucous membranes moist. Heart: Regular rate and rhythm, normal S1 and S2, no murmurs appreciated. Lungs: Clear to auscultation with no wheezing or crackles. Abdomen: Soft, nondistended, nontender, positive bowel sounds. No guarding or rebound tenderness. Neurologic: Alert and oriented x3, no gross neurological deficit, and patient able to move all 4 extremities. Extremities: 2+ pitting edema in lower extremities, much improved. Skin: No rash or ecchymoses. Objective Labs 03/05/25 06:45 03/05/25 06:45 Labs: Laboratory Results - last 24 hr 03/03/25 04:57 WBC 6.8 RBC 2.78 L Hgb 9.0 L Hct 27.9 L MCV 100 MCH 32.4 MCHC 32.3 RDW Std Deviation 53.4 H Plt Count 147 Neut % (Auto) 76 Lymph % (Auto) 9 L [place] % (Auto) 9 Eos % (Auto) 5 Baso % (Auto) 0 Neut # (Auto) 5.2 Lymph # (Auto) 0.6 L [place] # (Auto) 0.6 Eos # (Auto) 0.4 Baso # (Auto) 0.0 Immature Gran # (Auto) 0.02 H Absolute Nucleated RBC 0.00 Immature Gran % 0 Nucleated RBC % 0 Sodium 140 Potassium 5.1 Chloride 108 H Carbon Dioxide 23.4 Anion Gap 9 BUN 82 H Creatinine 1.8 H Estim Creat Clear Calc Not Performed. eGFR 27 L BUN/Creatinine Ratio 46 H Glucose 94 Calculated Osmolality 304 H Calcium 8.9 Corrected Calcium 9.2 Phosphorus 5.0 Magnesium 2.1 Total Bilirubin 0.4 AST 19 ALT 7 L Alkaline Phosphatase 44 L Total Protein 6.4 Albumin 3.6 Globulin 2.8 Albumin/Globulin Ratio 1.3 Quality Measures Quality Measures none Advance care planning discussed with:: patient Assessment & Plan Assessment Current Active Medications: Generic Name Dose Route Start Last Admin Trade Name Freq PRN Reason Stop Dose Admin Acetaminophen 650 mg 03/01/25 18:24 Acetaminophen 325 Mg Tablet PO 03/31/25 18:23 Q6H PRN Fever >101.5 or pain 1-3 Albuterol/Ipratropium 3 ml 03/01/25 18:38 Albuterol/Ipratropium (Duoneb) Rt Emily 3 Ml Nebu INH 03/31/25 18:37 Q2HR PRN SHORTNESS OF BREATH OR WHEEZE Albuterol/Ipratropium 3 ml 03/01/25 19:00 03/03/25 06:51 Albuterol/Ipratropium (Duoneb) Rt Emily 3 Ml Nebu INH 03/31/25 18:59 3 ml Q6HRRT ROSEMARIE Administration Allopurinol 300 mg 03/02/25 09:00 03/02/25 08:32 Allopurinol 100 Mg Tablet PO 04/01/25 08:59 300 mg QDAY ROSEMARIE Administration Amiodarone HCl 200 mg 03/02/25 09:00 03/02/25 21:30 Amiodarone Hcl 200 Mg Tablet PO 04/01/25 08:59 200 mg BID ROSEMARIE Administration Apixaban 2.5 mg 03/02/25 21:00 03/02/25 21:29 Apixaban 2.5 Mg Tablet PO 04/01/25 20:59 2.5 mg BID ROSEMARIE Administration Atenolol 25 mg 03/02/25 09:00 03/02/25 21:32 Atenolol 25 Mg Tablet PO 04/01/25 08:59 25 mg BID ROSEMARIE Administration Bumetanide 2 mg 03/03/25 09:00 Bumetanide Inj 0.25 Mg/Ml Vial 4 Ml IVP 04/02/25 08:59 QDAY ROSEMARIE Citric Acid/Sodium Citrate 30 ml 03/01/25 21:15 03/02/25 21:29 Citric Acid/Sodium Citr 15 Ml Udc (Bicitra) PO 03/31/25 21:14 30 ml BID ROSEMARIE Administration Levothyroxine Sodium 50 mcg 03/02/25 05:00 03/03/25 05:11 Levothyroxine Sodium 25 Mcg Tablet PO 04/01/25 04:59 50 mcg ACBR ROSEMARIE Administration Sodium Chloride 3 ml 03/01/25 16:43 Sodium Chloride Rt Emily 0.9% 3 Ml Nebu INH 03/31/25 16:42 PRN PRN SOLN Plan Ms. Washington is an 84 year-old Turkish lady who is well-known to me from my practice with past medical history of bronchial asthma with recurrent episodes of exacerbation, COPD, extensive history of hyperuricemia/gout, - s/p TAVR, A-fib on Eliquis, hypertension, hypothyroidism, and history of congestive heart failure (under Dr. Hartley), CKD IV who was admitted for fluid overload secondary to cardiorenal syndrome. #Acute on chronic renal insufficiency 2/2 prerenal azotemia #Acute hyperkalemia - Patient has recurrent episodes of fluid overload and has been receiving diuretics twice daily. Recently increase the Lasix to twice daily. Presented to clinic hypervolemic with significant lower extremity edema and shortness of breath. - BUN/creatinine significantly elevated, baseline 1.3-1.7 in April 2024. Improved s/p Bumex. - Potassium 5.6 -> 4.9 s/p Bumex. - Underlying CKD from cardiorenal syndrome. Patient under the care of Dr. Hartley. Plan: - Continue IV Bumex 2mg daily - Notified family that there is no need for dialysis at this time as patient improved with diuresis. - Resume cardiac, carb consistent diet - Strict INOs - Daily weights - Avoid nephrotoxic agents - Renally dose medications #Acute CHF exacerabation #Hx HFpEF (EF 50-55%) - Presented to clinic with fluid overload and significant lower extremity edema. Recently increase the Lasix to twice daily. - Follows Dr. Vasquez outpatient. - On GDMT: Lasix 40 mg daily, losartan 100 mg daily, and spiranolactone 25 mg daily (GDMT) - Echo 07/19/23 showed EF 50-55%. Mild RV dilatation. Estimate RVSP 46mmHg. Severe biatrial dilatation. Moderate MV stenosis mean gradient 9mmHg. Moderate MAC with Moderate mitral regurgitation. Aortic bioprosthesis lang gradient 22mmHg, vmax 2.9m/s. Peak gradient of 35 mmHg. Modeate tricuspid regurgitation. Plan: - IV Bumex 2mg daily - Echo ordered - Consulted inside sales agent Dr. Vasquez, appreciate recommendations #Afib with RVR #Hx afib on Eliquis - Follows Dr. Vasquez outpatient. On Eliquis 2.5 mg BID. - Found to be in afib with RVR on EKG in ED, HR 153 - S/p IV diltiazem pushes Plan: - Start amiodarone 200 mg BID - Start atenolol 25 mg BID - Consulted cardiology Dr. Vasquez, appreciate recommendations #Hypertensive #Hypertension - BP 158/100 in ED, improved to 110-120s s/p IV diltiazem pushes - GDMT regimen at home as above Plan: - Bumex and atenolol as above - Hold home losartan and spiranolactone #Hypothyroidism - Home med includes levothyroxine 50 mg daily Plan: - Continue home dose levothyroxine #Diabetes Type 2 - A1c 5.8. LDL 79. - Recall that she was taking glipizide in the past but not currently on any medication. Plan: - Resume cardiac/carb consistent diet #Hx bronchial asthma with recurrent episodes of exacerbation #COPD - Fluticasone at home Plan: - Duonebs q6hr and q2hr prn #Gout - Continue home allopurinol Health Maintenance Disposition: telemetry DVT prophylaxis: GI prophylaxis: none Diet: renal, carb consistent low CODE STATUS: FULL Patient plan of care was discussed with the attending physician, Dr. Diaz. Marisel Villavicencio DO, PGY-1 Attending Provider Attestation/Addendum Patient seen and examined with resident physician Dr. Villavicencio. Note reviewed, agree with findings and recommendations. Hold off on dialysis. Creatinine stable with IV diuretics.
--- NOTE | 2025-03-02 09:28 | ESCONSULT_ITS ---
RE: HALLE EASLEY : 1940 DATE OF CONSULTATION: 03/02/2025 CONSULTING PHYSICIAN: Yessy Diaz MD REASON FOR CONSULTATION: Evaluation of shortness of breath, edema of the feet, acute on chronic kidney disease, CKD stage IV with worsening of BUN and creatinine, and increased heart rate. HISTORY OF PRESENT ILLNESS: Patient is very well known to me. She is an 84-year-old female with past medical history of severe calcific aortic stenosis, underwent aortic valve replacement surgery in 12/1999 by , hypertension, severe chronic obstructive pulmonary disease, chronic persistent atrial fibrillation with rapid heart rates at times, and history of chronic kidney disease stage IV, hypothyroidism, on multiple medications, had been doing fairly well until recently. The patient has been having progressive shortness of breath on exertion and also having some swelling of the feet, right heart failure symptoms. The patient has chronic obstructive lung disease as well causing shortness of breath and she goes into frequent episodes of AFib with RVR. Recent echo about a month and a half to 2 months ago in 12/2024 in my office showed ejection fraction normal; however, there was evidence of fairly severe prosthetic valve stenosis, aortic velocity 3.4 meter per second, coming close to possible replacement again. The patient has a prosthetic valve dysfunction with stenosis. She also has atrial fibrillation rate control difficulty and chronic kidney disease stage IV. ALLERGIES: NONE. MEDICATIONS AT HOME: The patient takes multiple medications at home that include: 1. Bumetanide 2 mg p.o. daily. 2. Allopurinol 300 mg daily. 3. Diltiazem CD 240 mg daily. 4. Atenolol 25 mg twice daily. 5. Levothyroxine 50 mcg daily. 6. Losartan 100 mg daily. 7. Eliquis 2.5 mg twice daily. PAST MEDICAL HISTORY: Hypertension, chronic obstructive lung disease, CKD stage IV, status post aortic valve replacement surgery with bioprosthetic valve in year 1999, 25 years ago, now has severe stenosis. SOCIAL HISTORY: Patient lives with her sister, does not smoke or drink alcoholic beverages. FAMILY HISTORY: Noncontributory. PHYSICAL EXAMINATION: GENERAL: Elderly female, alert, awake, and in no acute distress. VITAL SIGNS: Her blood pressure is 120/75, pulse rate is 130 and irregular, respirations 18, temperature normal, oxygen saturation 100% on 2 L nasal cannula. HEENT: Head is atraumatic. NECK: Supple. No JVD. CHEST: Lungs have decreased breath sounds at the bases. HEART: S1, S2 regular, atrial fibrillation, rapid rate. Loud systolic murmur at the aortic area, 4/6 ejection systolic murmur of aortic stenosis. ABDOMEN: Thin and soft. EXTREMITIES: Show mild edema of both feet. GENITOURINARY: Not performed. RECTAL: Not performed. CENTRAL NERVOUS SYSTEM: Patient is alert, oriented x3, no focal deficit. DIAGNOSTIC STUDIES: Electrocardiogram showed atrial fibrillation with rapid ventricular response, nonspecific ST changes. Heart rate is around 140-150 on admission. The venous duplex scan is negative. Chest x-ray showed clear lung [place], no significant left heart failure. Lab data showed significant elevation of creatinine and BUN. The creatinine clearance was only 23, creatinine of 2.1, BUN 89. Initial potassium was 5.6, now 4.9. BNP is 246. TSH 5. LDL cholesterol is 79. IMPRESSION: 1. Atrial fibrillation with very rapid ventricular response, 140 beats per minute, not tolerating medication. 2. Chronic kidney disease stage IV with worsening of renal function and right heart failure with fluid retention. 3. Chronic obstructive pulmonary disease, asthma. 4. Severe prosthetic valve stenosis, surgically replaced prosthetic valve in year 1999, 25-year-old valve, now has severe stenosis. 5. Hypothyroidism. RECOMMENDATION AND DISCUSSION: Patient is being admitted to the hospital. We will monitor the patient closely. AFib rate control should be given; since the blood pressure is on the low side, we will give combination of atenolol 25 mg twice daily and also amiodarone 200 mg twice daily. Might consider adding Cardizem CD 240 mg daily and lower the atenolol if she does not tolerate atenolol well. Rate control is very important since tachycardia probably aggravated her symptoms and need to control the heart rate close to 90 beats per minute or close to 100, if not lower than 100. Once the rate is controlled well, we will discuss about options of assessing the aortic valve. She may be a candidate for aortic valve replacement, this time transcatheter aortic valve replacement can be performed; however, it is pretty fairly risky because of her age, renal disease, and multi-system disease. I would like to thank for referring this patient for cardiovascular evaluation. We will be glad to follow the patient with you. Patient has complex medical issues. Long-term prognosis is guarded. Short-term prognosis is fair. DT: 08:50:37 TT: 09:27:00 Ref: [id number] - TID: [id number] MTDD
[2025-03-02] MEDS: CITRIC ACID/SODIUM CITR 15 ML UDC (BICITRA) 30 ML PO ×2 (09:35→21:29)
[2025-03-02] MEDS: AMIODARONE HCL 200 MG TABLET PO ×2 (09:36→21:30)
[2025-03-02] MEDS: APIXABAN 2.5 MG TABLET 5 MG PO (09:36)
--- NOTE | 2025-03-02 11:16 | PC.SS ---
CHECKER CASHIER conducted bedside contact with the patient conduct initial assessment and to discuss discharge planning.? At bedside with patient was son, Nithin Washington .? Son provided information for assessment and discharge planning.? Patient resides at home with family.? Patient utilizes DME to assist with ambulation.? Patient possesses home oxygen.? Patient is able to complete ADL?s independently.? Patient?s surrogate medical decision maker is son, Nithin Washington.? Patient?s PCP is Dr. Diaz.? Patient?s hvac service manager is Dr. Calderon.? Patient does not participate with dialysis.? Patient utilizes [facility] for medication services.? Discharge plan is for the patient to return home at the time of discharge.? Family will provide transportation on behalf of the patient. ?No discharge needs identified by the patient?s son.? No further intervention required at this time, socially responsible investment adviser will be available to address any further concerns.? Next of Kin: Nithin Ferreiramariza D/C Plan: Home
--- NOTE | 2025-03-02 13:59 | PD.NEPHPROG ---
Documentation for date of: 03/02/25 Subjective Subjective Interval history: Ms. Washington is an 84 year-old [place] lady who is well-known to me from my practice with past medical history of bronchial asthma with recurrent episodes of exacerbation, COPD, extensive history of hyperuricemia/gout, - s/p TAVR, A-fib on Eliquis, hypertension, hypothyroidism, and history of congestive heart failure (under Dr. Hartley), CKD IV who lives along with her sister presented to [facility] with a chief complaint of SOB sent from my office due to anasarca. In my office patient was noted to have significant shortness of breath and tachycardia with a heart rate of 152. In the ED patient noted to be in A-fib with RVR. Blood pressure 92/75, heart rate 112. On OxyMask. Hemoglobin 10.7, platelets 170. Sodium 138, potassium 5.6, bicarbonate 15.6, BUN 93, creatinine 2.3, glucose 112, calcium 9.7, magnesium 2.3, LFTs normal, BNP 246, albumin 4.6, TSH 6.64 Venous Doppler ultrasound lower extremity negative. Chest x-ray showed congestive heart failure. EKG showed A-fib with RVR Home medications included albuterol, allopurinol, Eliquis, iron, Flovent, Lasix, levothyroxine, Cozaar, Cardizem 03/02/2025 patient currently seen in telemetry. Noted to have elevated heart rate. Spoke to Dr. Hartley-on amiodarone, atenolol. Also noted to have elevated potassium-Kayexalate given. Will repeat potassium in the afternoon. Dr. Hartley on the case. Review of Systems Review of Systems Narrative Review of Systems: CONSTITUTIONAL: Patient denies any fever, chills. Complaining of fatigue, SOB HEENT: Facial puffiness noted CARDIOVASCULAR: Patient denies any chest pain. +++ swelling in the lower extremities. PULMONARY: Patient complaining of wheezing, shortness of breath, GASTROINTESTINAL: Patient denies any abdominal pain, constipation, nausea, vomiting, diarrhea. GENITOURINARY: Patient denies any urinary symptoms of burning or frequency or hematuria, denies any form in the urine. SKIN: bruises MUSCULOSKELETAL: in bed NEUROLOGICAL: Denies any neurological problems of strokes, seizures or confusion. Denies any memory problems. Exam Vital Signs Temp Pulse Resp BP Pulse Ox O2 Del Method O2 Flow Rate 36.5 C 108 H 18 120/75 99 Nasal Cannula 1 03/02/25 08:00 03/02/25 12:44 03/02/25 12:44 03/02/25 09:36 03/02/25 12:44 03/02/25 08:00 03/02/25 12:44 Narrative Exam Physical Exam General: Awake and in no acute distress. Conversational and non-toxic appearing. HEENT: Normocephalic, atraumatic, mucous membranes moist. Heart: Regular rate and rhythm, normal S1 and S2, no murmurs appreciated. Lungs: Clear to auscultation with no wheezing or crackles. Abdomen: Soft, nondistended, nontender, positive bowel sounds. No guarding or rebound tenderness. Neurologic: Alert and oriented x3, no gross neurological deficit, and patient able to move all 4 extremities. Extremities: 1+ pitting edema in lower extremities, much improved. Wrinkles visible. Skin: No rash or ecchymoses. Objective Labs 03/05/25 06:45 03/05/25 06:45 Labs: Laboratory Results - last 24 hr 03/01/25 03/01/25 03/02/25 15:02 21:20 04:24 WBC 6.7 5.3 RBC 3.39 L 2.66 L Hgb 10.7 L 8.5 L D Hct 33.7 L 26.3 L MCV 99 99 MCH 31.6 32.0 MCHC 31.8 32.3 RDW Std Deviation 51.7 H 51.8 H Plt Count 170 139 L D Neut % (Auto) 81 H 78 Lymph % (Auto) 9 L 9 L [place] % (Auto) 8 10 Eos % (Auto) 1 2 Baso % (Auto) 0 0 Neut # (Auto) 5.4 4.2 Lymph # (Auto) 0.6 L 0.5 L [place] # (Auto) 0.5 0.5 Eos # (Auto) 0.1 0.1 Baso # (Auto) 0.0 0.0 Immature Gran # (Auto) 0.02 H 0.02 H Absolute Nucleated RBC 0.00 0.00 Immature Gran % 0 0 Nucleated RBC % 0 0 PT 10.4 INR 1.0 APTT 28.6 Sodium 138 142 Potassium 5.6 H 4.9 D Chloride 109 H 111 H Carbon Dioxide 15.6 L 18.8 L Anion Gap 13 12 BUN 93 H 89 H Creatinine 2.3 H 2.1 H Estim Creat Clear Calc Not Performed. Not Performed. eGFR 20 L 23 L BUN/Creatinine Ratio 40 H 42 H Glucose 112 H 103 Calculated Osmolality 305 H 310 H Calcium 9.7 8.9 Corrected Calcium 9.7 9.2 Phosphorus 5.9 H Magnesium 2.3 2.0 Total Bilirubin 0.4 0.5 AST 24 19 ALT 11 8 L Alkaline Phosphatase 58 45 L D Troponin I 0.043 B-Natriuretic Peptide 246 H Total Protein 8.1 6.3 Albumin 4.6 3.6 D Globulin 3.5 2.7 Albumin/Globulin Ratio 1.3 1.3 Triglycerides 39 Cholesterol 140 LDL Cholesterol, Calc 79 HDL Cholesterol 53 Cholesterol/HDL Ratio 2.6 L TSH 6.64 H 5.10 H Ur Collection Type Clean Catch Urine Color Colorless A Urine Clarity Clear Urine pH 6.0 Ur Specific [place] 1.008 Urine Protein Negative Urine Glucose (UA) Negative Urine Ketones Negative Urine Blood Trace Urine Nitrite Positive Urine Bilirubin Negative Urine Urobilinogen (Auto) Negative Ur Leukocyte Esterase Negative Urine RBC < 1 Urine WBC 1 Ur Squamous Epith Cells < 1 Urine Bacteria None Hyaline Casts < 1 Ur Culture Indicated? Yes Hepatitis A IgM Ab Non Reactive Hep Bs Antigen Non Reactive Hep B Core IgM Ab Non Reactive Hepatitis C Antibody Non Reactive Assessment & Plan Assessment and plan (1) Acute on chronic renal insufficiency: Status: Acute Assessment and plan: Acute on chronic renal insufficiency secondary to prerenal azotemia. Currently on Bumex. Underlying CKD from cardiorenal syndrome. Patient under the care of Dr. Hartley. No need for dialysis at this point. Spoke to Dr. Hartley. (2) Acute exacerbation of CHF (congestive heart failure): Status: Acute Assessment and plan: Continue with the diuretics-seems to be decompensated (3) Hypertension: Status: Acute Assessment and plan: Continue with diuretics, atenolol Blood pressure on the lower side-hold losartan low-dose (4) Hypothyroid: Status: Acute Assessment and plan: On levothyroxine (5) Diabetes: Status: Acute Assessment and plan: Patient seems to have diabetes. Not on any medications. Recall that she was taking glipizide in the past. A1c 6.2. LDL 77. No need for medications. Add consistent carb low diet (6) Atrial fibrillation with rapid ventricular response: Status: Acute Assessment and plan: On atenolol, amiodarone (7) Acute hyperkalemia: Status: Acute Assessment and plan: Bumex ordered. Will monitor potassium closely. Add Kayexalate (8) COPD (chronic obstructive pulmonary disease): Status: Acute Assessment and plan: DuoNeb ordered Additional Assessment & Plan Additional Plan: CODE STATUS full code Disposition Home with home health DVT prophylaxis on Eliquis- GI prophylaxis not needed
[2025-03-02] MEDS: ferumoxytoL (NON-ESRD) 510 MG in SODIUM CHLORIDE 0.9% 100 ML 234 MG IV (18:54)
[2025-03-02] MEDS: EPOETIN ALFA-EPBX INJ 10,000 UNIT/ML VIAL (ESRD) 10000 UNIT SC (18:54)
[2025-03-02] MEDS: APIXABAN 2.5 MG TABLET PO (21:29)
[2025-03-03] VITALS (13 sets, daily range): BP systolic 99–110; BP diastolic 64–72; PULSE 90–135; RESP 13–24; TEMP 36.1–37.1; O2SAT 92–100
[2025-03-03] MEDS: ALBUTEROL/IPRATROPIUM (Duoneb) RT SOL 3 ML NEBU INH ×4 (02:51→18:40)
[2025-03-03] MEDS: LEVOTHYROXINE SODIUM 25 MCG TABLET 50 MCG PO (05:11)
[2025-03-03 05:43] LABS: Basophils # (Auto) 0.0 Thou/mm3 (0.0-0.2); Basophils % (Auto) 0 % (0-2.5); Eosinophils # (Auto) 0.4 Thou/mm3 (0.0-0.5); Eosinophils % (Auto) 5 % (0-10); Hematocrit 27.9 % (36.0-46.0); Hemoglobin 9.0 g/dL (12.0-16.0); Immature Granulocytes Auto 0.02 Thou/mm3 (0.00-0.00); Lymphocytes # (Auto) 0.6 Thou/mm3 (1.0-4.8); Lymphocytes % (Auto) 9 % (10-50); Mean Corpuscular HGB Conc 32.3 g/dl (31.0-37.0); Mean Corpuscular Hemoglobin 32.4 pg (25.0-35.0); Mean Corpuscular Volume 100 fL (80-100); Monocytes # (Auto) 0.6 Thou/mm3 (0.0-0.8); Monocytes % (Auto) 9 % (0-12); Neutrophils # (Auto) 5.2 Thou/mm3 (1.8-7.7); Neutrophils % (Auto) 76 % (37-80); Nucleated Red Blood Cell # 0.00 Thou/mm3 (0.00-0.00); Nucleated Red Blood Cell % 0 /100 WBC (0); Platelet Count 147 Thou/mm3 (140-440); RDW Standard Deviation 53.4 fL (36.4-46.3); Red Blood Count 2.78 Miln/mm3 (4.00-5.20); White Blood Count 6.8 Thou/mm3 (3.6-11.0)
[2025-03-03 06:32] LABS: Alanine Aminotransferase 7 U/L (10-49); Albumin, Serum 3.6 gm/dL (3.4-4.8); Albumin/Globulin Ratio 1.3 (1.2-2.2); Alkaline Phosphatase 44 U/L (46-116); Anion Gap 9 (7-16); Aspartate Amino Transferase 19 U/L (0-34); BUN/Creatinine Ratio 46 Ratio (12-20); Bilirubin,Total 0.4 mg/dL (0.3-1.2); Blood Urea Nitrogen 82 mg/dL (9-23); Calcium 8.9 mg/dL (8.3-10.6); Calcium (Corrected) 9.2 mg/dL (8.5-10.1); Carbon Dioxide 23.4 mMol/L (20.0-31.0); Chloride 108 mMol/L (98-107); Creatinine (Component) 1.8 mg/dL (0.6-1.3); Globulin 2.8 gm/dL (2.3-3.5); Glucose 94 mg/dL (74-106); Magnesium 2.1 mg/dL (1.6-2.6); Osmolality,Calculated 304 (275-295); Phosphorous 5.0 mg/dL (2.4-5.1); Potassium 5.1 mMol/L (3.4-5.1); Sodium 140 mMol/L (136-145); Total Protein 6.4 gm/dL (5.7-8.2); eGFR 27 See Note
--- NOTE | 2025-03-03 06:55 | ESPR_ITS ---
Documentation for date of: 03/03/25 Subjective Subjective Interval history: Chief complaint: SOB, fatigue History of present illness: Ms. Washington is an 84 year-old [place]ian lady who is well-known to me from my practice with past medical history of bronchial asthma with recurrent episodes of exacerbation, COPD, extensive history of hyperuricemia/gout, - s/p TAVR, A-fib on Eliquis, hypertension, hypothyroidism, and history of congestive heart failure (under Dr. Hartley), CKD IV who lives along with her sister presented to [facility] with a chief complaint of SOB sent from my office due to anasarca. In my office patient was noted to have significant shortness of breath and tachycardia with a heart rate of 152. In the ED patient noted to be in A-fib with RVR. Blood pressure 92/75, heart rate 112. On OxyMask. Hemoglobin 10.7, platelets 170. Sodium 138, potassium 5.6, bicarbonate 15.6, BUN 93, creatinine 2.3, glucose 112, calcium 9.7, magnesium 2.3, LFTs normal, BNP 246, albumin 4.6, TSH 6.64 Venous Doppler ultrasound lower extremity negative. Chest x-ray showed congestive heart failure. EKG showed A-fib with RVR Home medications included albuterol, allopurinol, Eliquis, iron, Flovent, Lasix, levothyroxine, Cozaar, Cardizem 03/02/25: Patient seen and assessed at bedside. On telemetry. S/p diltiazem IV pushes. Overnight, patient remained in afib with HR 120-130s. Gave another IV diltiazem 5 mg x1 in AM, improved HR to 110s. Consulted counter control operator Dr. Vasquez, started on amiodarone 200mg BID and atenolol 25 BID. Lower extremity edema and breathing improved significantly since yesterday. Potassium 4.9 (from 5.6), creatinine 2.1 (from 2.3), GFR 23. No need for dialysis as she improved with diuresis. Will continue IV Bumex 2mg daily, monitor on telemetry. Resume home Eliquis 2.5 mg BID, allopurinol, and levothyroxine. 03/03/25: Patient seen and assessed at bedside. On telemetry. Feeling well. Continues to be in afib but HR improved to 90s-low 100s. UOP 2.9L overnight. BP systolic 90s-110s. Lower extremity edema continues to improve, saturating well off oxygen at bedside. Potassium 5.1, bicarb 23.4 (from 18.8), creatinine 1.8 (from 2.1). Continue amiodarone and atenolol per cardiology. PT consulted to assesses ambulatory status, ambulatory at baseline. No need for dialysis as above. Follow up echo read. Plan for discharge tomorrow if patient remains stable. Exam Vital Signs Temp Pulse Resp BP Pulse Ox O2 Del Method O2 Flow Rate 97.4 F 99 13 99/65 95 Nasal Cannula 2 03/03/25 04:00 03/03/25 04:00 03/03/25 04:00 03/03/25 04:00 03/03/25 04:00 03/02/25 16:00 03/03/25 02:45 Narrative Exam Physical Exam General: Awake and in no acute distress. Conversational and non-toxic appearing. HEENT: Normocephalic, atraumatic, mucous membranes moist. Heart: Regular rate and rhythm, normal S1 and S2, no murmurs appreciated. Lungs: Clear to auscultation with no wheezing or crackles. Abdomen: Soft, nondistended, nontender, positive bowel sounds. No guarding or rebound tenderness. Neurologic: Alert and oriented x3, no gross neurological deficit, and patient able to move all 4 extremities. Extremities: 1+ pitting edema in lower extremities, much improved. Wrinkles visible. Skin: No rash or ecchymoses. Objective Labs 03/05/25 06:45 03/05/25 06:45 Labs: Laboratory Results - last 24 hr 03/03/25 04:57 WBC 6.8 RBC 2.78 L Hgb 9.0 L Hct 27.9 L MCV 100 MCH 32.4 MCHC 32.3 RDW Std Deviation 53.4 H Plt Count 147 Neut % (Auto) 76 Lymph % (Auto) 9 L Toole % (Auto) 9 Eos % (Auto) 5 Baso % (Auto) 0 Neut # (Auto) 5.2 Lymph # (Auto) 0.6 L Toole # (Auto) 0.6 Eos # (Auto) 0.4 Baso # (Auto) 0.0 Immature Gran # (Auto) 0.02 H Absolute Nucleated RBC 0.00 Immature Gran % 0 Nucleated RBC % 0 Sodium 140 Potassium 5.1 Chloride 108 H Carbon Dioxide 23.4 Anion Gap 9 BUN 82 H Creatinine 1.8 H Estim Creat Clear Calc Not Performed. eGFR 27 L BUN/Creatinine Ratio 46 H Glucose 94 Calculated Osmolality 304 H Calcium 8.9 Corrected Calcium 9.2 Phosphorus 5.0 Magnesium 2.1 Total Bilirubin 0.4 AST 19 ALT 7 L Alkaline Phosphatase 44 L Total Protein 6.4 Albumin 3.6 Globulin 2.8 Albumin/Globulin Ratio 1.3 Quality Measures Quality Measures none Advance care planning discussed with:: patient Assessment & Plan Assessment Current Active Medications: Generic Name Dose Route Start Last Admin Trade Name Freq PRN Reason Stop Dose Admin Acetaminophen 650 mg 03/01/25 18:24 Acetaminophen 325 Mg Tablet PO 03/31/25 18:23 Q6H PRN Fever >101.5 or pain 1-3 Albuterol/Ipratropium 3 ml 03/01/25 18:38 Albuterol/Ipratropium (Duoneb) Rt Emily 3 Ml Nebu INH 03/31/25 18:37 Q2HR PRN SHORTNESS OF BREATH OR WHEEZE Albuterol/Ipratropium 3 ml 03/01/25 19:00 03/03/25 06:51 Albuterol/Ipratropium (Duoneb) Rt Emiyl 3 Ml Nebu INH 03/31/25 18:59 3 ml Q6HRRT ROSEMARIE Administration Allopurinol 300 mg 03/02/25 09:00 03/02/25 08:32 Allopurinol 100 Mg Tablet PO 04/01/25 08:59 300 mg QDAY ROSEMARIE Administration Amiodarone HCl 200 mg 03/02/25 09:00 03/02/25 21:30 Amiodarone Hcl 200 Mg Tablet PO 04/01/25 08:59 200 mg BID ROSEMARIE Administration Apixaban 2.5 mg 03/02/25 21:00 03/02/25 21:29 Apixaban 2.5 Mg Tablet PO 04/01/25 20:59 2.5 mg BID ROSEMARIE Administration Atenolol 25 mg 03/02/25 09:00 03/02/25 21:32 Atenolol 25 Mg Tablet PO 04/01/25 08:59 25 mg BID ROSEMARIE Administration Bumetanide 2 mg 03/03/25 09:00 Bumetanide Inj 0.25 Mg/Ml Vial 4 Ml IVP 04/02/25 08:59 QDAY ROSEMARIE Citric Acid/Sodium Citrate 30 ml 03/01/25 21:15 03/02/25 21:29 Citric Acid/Sodium Citr 15 Ml Udc (Bicitra) PO 03/31/25 21:14 30 ml BID ROSEMARIE Administration Levothyroxine Sodium 50 mcg 03/02/25 05:00 03/03/25 05:11 Levothyroxine Sodium 25 Mcg Tablet PO 04/01/25 04:59 50 mcg ACBR ROSEMARIE Administration Sodium Chloride 3 ml 03/01/25 16:43 Sodium Chloride Rt Emily 0.9% 3 Ml Nebu INH 03/31/25 16:42 PRN PRN SOLN Plan Ms. Washington is an 84 year-old [place]ian lady who is well-known to me from my practice with past medical history of bronchial asthma with recurrent episodes of exacerbation, COPD, extensive history of hyperuricemia/gout, - s/p TAVR, A-fib on Eliquis, hypertension, hypothyroidism, and history of congestive heart failure (under Dr. Hartley), CKD IV who was admitted for fluid overload secondary to cardiorenal syndrome. #Acute hyperkalemia #FRAN on CKD IIIb 2/2 prerenal azotemia - Patient has recurrent episodes of fluid overload and has been receiving diuretics twice daily. Patient under the care of Dr. Hartley. Recently increased the Lasix to twice daily. Presented to clinic hypervolemic with significant lower extremity edema and shortness of breath. - BUN/creatinine significantly elevated, baseline 1.3-1.7 in April 2024. Improving s/p Bumex. - GFR 24 --> 27, variable on chart review but mostly within stage 3B. - Potassium 5.6 -> 4.9 s/p Bumex -> 5.1. On losartan and spiranolactone, may have worsened acutely in setting of FRAN on CKD. - Underlying CKD from cardiorenal syndrome. Plan: - Continue IV Bumex 2mg daily - Hold spiranolactone and losartan - Notified family that there is no need for dialysis at this time as patient improved with diuresis. - Cardiac, carb consistent diet - Strict INOs - Daily weights - Avoid nephrotoxic agents - Renally dose medications #Acute CHF exacerabation #Hx HFpEF (EF 50-55%) - Presented to clinic with fluid overload and significant lower extremity edema. Recently increase the Lasix to twice daily. - Follows Dr. Vasquez outpatient. - On GDMT: Lasix 40 mg daily, losartan 100 mg daily, and spiranolactone 25 mg daily (GDMT) - Echo 07/19/23 showed EF 50-55%. Mild RV dilatation. Estimate RVSP 46mmHg. Severe biatrial dilatation. Moderate MV stenosis mean gradient 9mmHg. Moderate MAC with Moderate mitral regurgitation. Aortic bioprosthesis lang gradient 22mmHg, vmax 2.9m/s. Peak gradient of 35 mmHg. Modeate tricuspid regurgitation. Plan: - IV Bumex 2mg daily - Fluid restriction 1500 cc - Follow up echo read - Consulted counter control operator Dr. Vasquez, appreciate recommendations #Afib with RVR #Hx afib on Eliquis - Follows Dr. Vasquez outpatient. On Eliquis 2.5 mg BID. - Found to be in afib with RVR on EKG in ED, HR 153 - S/p IV diltiazem pushes Plan: - Amiodarone 200 mg BID - Atenolol 25 mg BID, consider titrating down and adding cardizem if patient unable tolerate BB dose - Resume Eliquis 2.5mg BID - Consulted cardiology Dr. Vasquez, appreciate recommendations #Hypertensive #Hypertension - BP 158/100 in ED, improved to 110-120s s/p IV diltiazem pushes - GDMT regimen at home as above Plan: - Bumex and atenolol as above - Hold home losartan and spiranolactone #Hypothyroidism - Home med includes levothyroxine 50 mg daily Plan: - Continue home dose levothyroxine #Diabetes Type 2 - A1c 5.8. LDL 79. - Recall that she was taking glipizide in the past but not currently on any medication. Plan: - Cardiac/carb consistent diet - Encourage diet modifications for now #Hx bronchial asthma with recurrent episodes of exacerbation #COPD - On fluticasone at home Plan: - Duonebs q6hr and q2hr prn #Gout - Continue home allopurinol #Anemia, normocytic - MCV 99-100, previously macrocytic Plan: - Follow up folate, B12, and iron panel Health Maintenance Disposition: telemetry DVT prophylaxis: on Eliquis GI prophylaxis: none Diet: renal, carb consistent low CODE STATUS: FULL Patient plan of care was discussed with the attending physician, Dr. Diaz. Marisel Villavicencio DO, PGY-1 Attending Provider Attestation/Addendum Patient seen and examined with resident physician Dr. Villavicencio. Note reviewed, agree with findings and recommendations. Creatinine better. Hold off on dialysis
[2025-03-03] MEDS: AMIODARONE HCL 200 MG TABLET PO ×2 (08:33→20:01)
[2025-03-03] MEDS: APIXABAN 2.5 MG TABLET PO ×2 (08:33→21:15)
[2025-03-03] MEDS: BUMETANIDE INJ 0.25 MG/ML VIAL 4 ML 2 MG IVP (08:33)
[2025-03-03] MEDS: CITRIC ACID/SODIUM CITR 15 ML UDC (BICITRA) 30 ML PO ×2 (09:24→21:15)
[2025-03-03 14:48] LABS: Percent Iron Saturation 100 % (20-55); Unsaturated Iron Binding 0 (225-295)
[2025-03-03 14:49] LABS: Iron 841 mcg/dL (50-170); Total Iron Binding Capacity 292 mcg/dL (250-425)
[2025-03-03 15:08] LABS: Folate 8.75 ng/mL (>5.38); Vitamin B12 641 pg/mL (211-911)
--- NOTE | 2025-03-03 15:09 | ESPR_ITS ---
RE: HALLE WASHINGTON : 1940 DATE OF SERVICE: 03/03/2025 Halle Washington is seen for cardiovascular reasons. Patient is known to me, has long-standing history of aortic valve replacement surgery by surgical method and a chronic AFib, difficult rate control hypertension initially but now running global. She came to the hospital with shortness of breath, weak, fatigue and right heart failure symptoms and elevated BUN and creatinine. Patient is receiving IV diuretic with improvement of creatinine which is a good sign that means she has significant right heart failure symptoms. Cardia echocardiogram showed ejection fraction of 50-55% with a significant mitral valve disease as well severe mitral regurgitation along with heavy mitral annular calcification, mild to moderate mitral stenosis as well and aortic valve stenosis moderate only with the aortic velocity of 3.3 meters per second. Aortic stenosis is only moderate, but not critical. Her exam shows she is somewhat sleepy and lethargic but not complaining of any shortness of breath or chest pain, saturating well on room air. Her blood pressure is soft 100/68, heart rate is 96, respirations 18, temp normal. Neck is supple, no JVD. Lungs: Decrease breath sounds at the bases. Heart; S1 S2, irregular atrial fibrillation, loud systolic murmur is heard. Abdomen: Thin and soft. Extremities: No edema. and Rectal: Not performed. IMPRESSION: 1. Status post aortic valve replacement surgery with moderate prosthetic valve stenosis. 2. Atrial fibrillation, now rapid rate controlled reasonably well with combination of amiodarone and atenolol. She is on amiodarone 200 b.i.d. and atenolol 25 b.i.d. She is so far tolerating reasonably well. RECOMMENDATIONS: The patient will be continued on these two combination for now and monitor blood pressure closely. Might want to add midodrine if her blood pressure is too low in order to give higher dose of beta-frances if necessary. Rate control is important for her to manage her at this point. The patient does have significant valvular disease including moderate prosthetic valve stenosis and moderate mitral stenosis and severe mitral regurgitation combination of factors causing her to be having multiple issues. Patient also has CKD stage IV monitored by enrobing machine operator as well. Currently she is not a candidate for repeat aortic valve interventions such as TAVR or valve surgery. DT: 14:53:29 TT: 15:08:00 Ref: [id number] - TID: [id number]
--- NOTE | 2025-03-03 16:39 | EKG_ITS ---
[facility] Test Date: 2025-03-03 Pat Name: HALLE EASLEY [facility] Gender: Female [employer] Program Director: KASIA : 1940 Requested By: Yessy Diaz Order Number: [id number] Reading MD: Yessy Diaz Measurements Intervals [place] Rate: 118 P: MS: QRS: -18 QRSD: 91 T: 66 QT: 318 QTc: 447 Interpretive Statements ATRIAL FIBRILLATION WITH RAPID VENTRICULAR RESPONSE LOW QRS VOLTAGE IN PRECORDIAL LEADS INCOMPLETE RIGHT BUNDLE BRANCH BLOCK ABNORMAL RHYTHM ECG Compared to ECG 03/02/2025 05:23:30 Incomplete right bundle-branch block now present Myocardial infarct finding no longer present /store/S0/[id number]/[id number].pdf
[2025-03-04] VITALS (18 sets, daily range): BP systolic 92–115; BP diastolic 60–84; PULSE 85–142; RESP 15–26; TEMP 36.1–36.8; O2SAT 93–100; BMI 22.1; BMI 15.0
[2025-03-04] MEDS: ALBUTEROL/IPRATROPIUM (Duoneb) RT SOL 3 ML NEBU INH ×4 (01:49→19:26)
[2025-03-04] MEDS: LEVOTHYROXINE SODIUM 25 MCG TABLET 50 MCG PO (05:14)
[2025-03-04 05:52] LABS: Basophils # (Auto) 0.0 Thou/mm3 (0.0-0.2); Basophils % (Auto) 0 % (0-2.5); Eosinophils # (Auto) 0.4 Thou/mm3 (0.0-0.5); Eosinophils % (Auto) 6 % (0-10); Hematocrit 29.6 % (36.0-46.0); Hemoglobin 9.3 g/dL (12.0-16.0); Immature Granulocytes Auto 0.02 Thou/mm3 (0.00-0.00); Lymphocytes # (Auto) 0.7 Thou/mm3 (1.0-4.8); Lymphocytes % (Auto) 10 % (10-50); Mean Corpuscular HGB Conc 31.4 g/dl (31.0-37.0); Mean Corpuscular Hemoglobin 31.8 pg (25.0-35.0); Mean Corpuscular Volume 101 fL (80-100); Monocytes # (Auto) 0.7 Thou/mm3 (0.0-0.8); Monocytes % (Auto) 11 % (0-12); Neutrophils # (Auto) 4.9 Thou/mm3 (1.8-7.7); Neutrophils % (Auto) 72 % (37-80); Nucleated Red Blood Cell # 0.00 Thou/mm3 (0.00-0.00); Nucleated Red Blood Cell % 0 /100 WBC (0); Platelet Count 146 Thou/mm3 (140-440); RDW Standard Deviation 53.5 fL (36.4-46.3); Red Blood Count 2.92 Miln/mm3 (4.00-5.20); White Blood Count 6.8 Thou/mm3 (3.6-11.0)
[2025-03-04 06:29] LABS: Alanine Aminotransferase < 7 U/L (10-49); Albumin, Serum 3.6 gm/dL (3.4-4.8); Albumin/Globulin Ratio 1.2 (1.2-2.2); Alkaline Phosphatase 44 U/L (46-116); Anion Gap 9 (7-16); Aspartate Amino Transferase 17 U/L (0-34); BUN/Creatinine Ratio 38 Ratio (12-20); Bilirubin,Total 0.3 mg/dL (0.3-1.2); Blood Urea Nitrogen 76 mg/dL (9-23); Calcium 8.8 mg/dL (8.3-10.6); Calcium (Corrected) 9.1 mg/dL (8.5-10.1); Carbon Dioxide 25.8 mMol/L (20.0-31.0); Chloride 102 mMol/L (98-107); Creatinine (Component) 2.0 mg/dL (0.6-1.3); Globulin 2.9 gm/dL (2.3-3.5); Glucose 98 mg/dL (74-106); Magnesium 2.1 mg/dL (1.6-2.6); Osmolality,Calculated 296 (275-295); Phosphorous 4.2 mg/dL (2.4-5.1); Potassium 5.7 mMol/L (3.4-5.1); Sodium 137 mMol/L (136-145); Total Protein 6.5 gm/dL (5.7-8.2); eGFR 24 See Note
[2025-03-04] MEDS: AMIODARONE HCL 200 MG TABLET PO (08:31)
[2025-03-04] MEDS: APIXABAN 2.5 MG TABLET PO ×2 (08:31→20:41)
[2025-03-04] MEDS: SOD POLYSTYRENE SULFON SUSP 15 GM/60 ML BTL 30 GM PO (08:31)
[2025-03-04] MEDS: BUMETANIDE INJ 0.25 MG/ML VIAL 4 ML 1 MG IVP (08:32)
--- NOTE | 2025-03-04 10:32 | CHAP ---
Patient expressed gratitude for visit and prayer.
--- NOTE | 2025-03-04 10:58 | ESDS_ITS ---
Planned Discharge Date 03/04/25 DS: Providers Provider Date of admission: 03/01/25 18:24 Primary care physician: Yessy Diaz MD Admitting Provider: Yessy Diaz MD Attending Provider on Admission: Yessy Diaz MD Consults: 03/01/25 21:11 Consult to Cardiology Routine Comment: CHF, afib Consulting Provider: Sergio Vasquez 03/03/25 08:54 Referral Physical Therapy Urgent Comment: Physician Instructions: Instructions: Started on atenolol yesterday, want to see if she can still walk ok. Ambulatory at baseline. Plan to dc tomorrow. Thank you! Attending Provider on DC: Yessy Diaz MD Discharging Provider: Yessy Diaz MD Discharge Diagnosis Discharge Diagnosis (1) Acute on chronic renal insufficiency: Status: Acute (2) Acute exacerbation of CHF (congestive heart failure): Status: Acute (3) Hypertension: Status: Acute (4) Hypothyroid: Status: Acute (5) Diabetes: Status: Acute (6) Atrial fibrillation with rapid ventricular response: Status: Acute (7) Acute hyperkalemia: Status: Acute (8) COPD (chronic obstructive pulmonary disease): Status: Acute Problem List Completed Was Problem List Reviewed/Reconciled?: Yes Hospital Course Hospital Course Hospital course: Ms. Washington is an 84 year-old [place]ian lady who is well-known to me from my practice with past medical history of bronchial asthma with recurrent episodes of exacerbation, COPD, extensive history of hyperuricemia/gout, - s/p TAVR, A-fib on Eliquis, hypertension, hypothyroidism, and history of congestive heart failure (under Dr. Hartley), CKD IV who lives along with her sister presented to [facility] with a chief complaint of SOB sent from my office due to anasarca. In my office patient was noted to have significant shortness of breath and tachycardia with a heart rate of 152. In the ED patient noted to be in A-fib with RVR. Blood pressure 92/75, heart rate 112. On OxyMask. Hemoglobin 10.7, platelets 170. Sodium 138, potassium 5.6, bicarbonate 15.6, BUN 93, creatinine 2.3, glucose 112, calcium 9.7, magnesium 2.3, LFTs normal, BNP 246, albumin 4.6, TSH 6.64 Venous Doppler ultrasound lower extremity negative. Chest x-ray showed congestive heart failure. EKG showed A-fib with RVR Home medications included albuterol, allopurinol, Eliquis, iron, Flovent, Lasix, levothyroxine, Cozaar, Cardizem Status at Discharge Cognitive/behavioral status at discharge: stable Functional status at discharge: independent ambulation Overall status at discharge: patient is progressing back to baseline Time Spent with Patient Time attestation: Total time spent providing and/or coordinating discharge services: 35 min. Exam Vital Signs Temp Pulse Resp BP Pulse Ox O2 Del Method O2 Flow Rate 36.1 C 122 H 21 H 111/76 99 Nasal Cannula 2 03/04/25 08:00 03/04/25 08:32 03/04/25 08:00 03/04/25 08:32 03/04/25 08:00 03/04/25 08:00 03/04/25 08:00 Narrative Exam Physical Exam General: Awake and in no acute distress. Conversational and non-toxic appearing. HEENT: Normocephalic, atraumatic, mucous membranes moist. Heart: Regular rate and rhythm, normal S1 and S2, no murmurs appreciated. Lungs: Clear to auscultation with no wheezing or crackles. Abdomen: Soft, nondistended, nontender, positive bowel sounds. No guarding or rebound tenderness. Neurologic: Alert and oriented x3, no gross neurological deficit, and patient able to move all 4 extremities. Extremities: 1+ pitting edema in lower extremities, much improved. Wrinkles visible. Skin: No rash or ecchymoses. Discharge Plan Plan Patient Disposition: Home w/HOME HEALTH Care Plan Goals: Follow up with primary care physician Dr. Diaz within 1 week of discharge with repeat renal panel Follow up with Cardiology within 2 weeks of discharge. Instructions have been explained to the patient with regards to their medications and how to take them. Patient was able to explain back to physician and nursing staff how to take their medications. Patient expressed understanding with instructions. New Medications: You have been prescribed Atenolol 25mg twice a day, Diltiazem 240mg once a day, Eliquis 2.5mg twice a day, Kaexylate 15gm once a day, midodrine 5 mg three times a day STOP spiranolactone and losartan Continue to take the rest of your medications as prescribed by your primary care physician. Patient has been explained that should any symptoms recur or worsen patient is instructed to return to the Emergency Department. Prescriptions/Referrals Prescriptions/Med Rec: New atenolol 25 mg Tablet 25 mg PO BID Qty: 60 0RF Eliquis 2.5 mg Tablet 2.5 mg PO BID Qty: 60 0RF sodium polystyrene sulfonate 15 gram powder 15 g PO QDAY 30 Days Qty: 454 0RF midodrine 5 mg tablet 5 mg PO TID Qty: 90 0RF Rx Instructions: do not give last dose of day after 6PM or within 4 hrs of bedtime diltiazem HCl [Cardizem CD] 240 mg capsule,extended release 24hr 240 mg PO QAM Qty: 30 0RF Continued levothyroxine [Synthroid] 50 mcg Tablet 50 mcg PO QDAY allopurinol 300 mg Tablet 300 mg PO QDAY fluticasone propionate [Flovent HFA] 220 mcg/actuation Hfa Aerosol Inhaler 1 puff inhalation BID albuterol sulfate [Ventolin HFA] 90 mcg/actuation Hfa Aerosol Inhaler 2 puff inhalation Q8H PRN (Reason: SOB) ferrous sulfate [Iron (ferrous sulfate)] 325 mg (65 mg iron) Tablet 325 mg PO BID bumetanide 2 mg tablet 2 mg PO DAILY Patient Comments: TAKE 1 TABLET BY MOUTH EVERY DAY diltiazem HCl 240 mg capsule,extended release 24hr 240 mg PO Q24H aspirin 81 mg tablet 81 mg PO QDAY Discontinued losartan [Cozaar] 100 mg Tablet 100 mg PO QDAY Eliquis 5 mg Tablet 5 mg PO BID furosemide [Lasix] 40 mg tablet 40 mg PO QDAY Qty: 30 0RF spironolactone 25 mg tablet 25 mg PO DAILY Referrals: Yessy Diaz MD [Primary Care Provider, Nephrology] Outpatient Orders (i.e. Home Health, Labs, Imaging): Renal Function Panel (Routine) Location: None Selected Ordered By: Marisel Villavicencio Patient/Caregiver Discharge Instructions Discharge Activity: activity as tolerated Other Discharge Activity Instructions:: Follow up with primary care physician Dr. Diaz within 1 week of discharge with repeat renal panel Follow up with Cardiology within 2 weeks of discharge. Instructions have been explained to the patient with regards to their medications and how to take them. Patient was able to explain back to physician and nursing staff how to take their medications. Patient expressed understanding with instructions. New Medications: You have been prescribed Atenolol 25mg twice a day, Diltiazem 240mg once a day, Eliquis 2.5mg twice a day, Kaexylate 15gm once a day, midodrine 5 mg three times a day STOP spiranolactone and losartan Continue to take the rest of your medications as prescribed by your primary care physician. Patient has been explained that should any symptoms recur or worsen patient is instructed to return to the Emergency Department. Education Materials: AFL/Afib, Kidney Disease Potassium in Diet, Acute Kidney Failure Dc, Hyperkalemia Dc Print Language: Sinhala Activity Restrictions/Additional Instructions: f/u with dr. diaz, dr. witt in 1 week come back to er if Cp, SOB ++ Stand Alone Forms: Juliana Award Info., Patient Portal Info Letter Discharge Order Discharge Orders: Discharge (Routine); Ordered 03/05/25 Ordered By: Kd Crowe
[2025-03-04] MEDS: DILTIAZEM INJ 5 MG/ML VIAL 5 ML IV (12:24)
[2025-03-04] MEDS: MIDODRINE 5 MG TABLET PO ×2 (13:27→21:22)
[2025-03-04] MEDS: DILTIAZEM INJ 5 MG/ML VIAL 5 ML 10 MG IV (13:27)
[2025-03-04 14:57] LABS: Albumin, Serum 4.0 gm/dL (3.4-4.8); Anion Gap 10 (7-16); BUN/Creatinine Ratio 34 Ratio (12-20); Blood Urea Nitrogen 72 mg/dL (9-23); Calcium 8.9 mg/dL (8.3-10.6); Calcium (Corrected) 8.9 mg/dL (8.5-10.1); Carbon Dioxide 27.0 mMol/L (20.0-31.0); Chloride 100 mMol/L (98-107); Creatinine (Component) 2.1 mg/dL (0.6-1.3); Glucose 126 mg/dL (74-106); Osmolality,Calculated 297 (275-295); Phosphorous 4.4 mg/dL (2.4-5.1); Potassium 4.8 mMol/L (3.4-5.1); Sodium 137 mMol/L (136-145); eGFR 23 See Note
[2025-03-04] MEDS: DILTIAZEM 30 MG TABLET 60 MG PO (17:52)
[2025-03-05] VITALS (15 sets, daily range): BP systolic 98–116; BP diastolic 55–67; PULSE 57–96; RESP 13–24; TEMP 36.1–36.3; O2SAT 92–100
[2025-03-05] MEDS: ALBUTEROL/IPRATROPIUM (Duoneb) RT SOL 3 ML NEBU INH ×3 (00:09→12:30)
[2025-03-05] MEDS: DILTIAZEM 30 MG TABLET 60 MG PO ×3 (00:13→11:48)
--- NOTE | 2025-03-05 01:32 | ESPR_ITS ---
RE: HALLE WASHINGTON : 1940 DATE OF SERVICE: 03/05/2025 Halle Washington is an 84-year-old lady, very well known to me, history of surgical aortic valve replacement, more than 20 years ago, has moderate stenosis, also has severe mitral regurgitation, who came to the hospital with AFib with RVR, shortness of breath, and renal failure. Patient is responding well to medical management. She is feeling a little better, but still has tachycardia. Made some changes in medication, patient on amiodarone for rate control, which did not appear to be helping. She was at home on Cardizem CD 240 mg daily and atenolol combination, but blood pressure is too low hence she was not taking them. That is why her heart rate is fast. She is feeling better except her heart rate is 130-140. IV diltiazem boluses were given and oral Cardizem appears to be controlling her heart rate, and she is also started on atenolol 25 mg b.i.d. and midodrine. Discontinued amiodarone. She is feeling a little better now, wants to go home, but would like to keep her for another day. ALLERGIES: NONE. PHYSICAL EXAMINATION: GENERAL: Well-nourished female, alert, awake, in no acute distress. VITAL SIGNS: Blood pressure 96/60, pulse rate is 76 now, respirations 24. NECK: Supple. LUNGS: Decreased breath sounds. CARDIAC: Exam showed evidence of systolic murmur. Examination suggestive of aortic stenosis. ABDOMEN: Thin and soft. EXTREMITIES: No edema. IMPRESSION: 1. Atrial fibrillation with rapid ventricular response, now controlled. 2. Aortic stenosis, severe prosthetic valve stenosis. 3. [id number] mitral regurgitation. 4. Chronic kidney disease stage IV with elevated BUN. RECOMMENDATIONS: Continue diltiazem now 240 mg daily since ejection fraction is preserved. We will give IV boluses. She is on ____ every 6 hours initially and subsequently will probably change it to 240 mg daily. We will probably discharge the patient home tomorrow on 240 mg of diltiazem and also on 25 mg b.i.d. of atenolol as well as midodrine 5 mg 3 times daily. Aortic stenosis is not severe enough to warrant intervention. Mitral regurgitation also will be managed medically. DT: 00:15:38 TT: 01:26:00 Ref: [id number] - TID: [id number]
[2025-03-05] MEDS: LEVOTHYROXINE SODIUM 25 MCG TABLET 50 MCG PO (05:06)
[2025-03-05] MEDS: MIDODRINE 5 MG TABLET PO ×2 (05:06→13:43)
[2025-03-05 07:05] LABS: Basophils # (Auto) 0.0 Thou/mm3 (0.0-0.2); Basophils % (Auto) 0 % (0-2.5); Eosinophils # (Auto) 0.3 Thou/mm3 (0.0-0.5); Eosinophils % (Auto) 4 % (0-10); Hematocrit 30.2 % (36.0-46.0); Hemoglobin 9.5 g/dL (12.0-16.0); Immature Granulocytes Auto 0.04 Thou/mm3 (0.00-0.00); Lymphocytes # (Auto) 0.6 Thou/mm3 (1.0-4.8); Lymphocytes % (Auto) 6 % (10-50); Mean Corpuscular HGB Conc 31.5 g/dl (31.0-37.0); Mean Corpuscular Hemoglobin 32.0 pg (25.0-35.0); Mean Corpuscular Volume 102 fL (80-100); Monocytes # (Auto) 0.9 Thou/mm3 (0.0-0.8); Monocytes % (Auto) 9 % (0-12); Neutrophils # (Auto) 7.9 Thou/mm3 (1.8-7.7); Neutrophils % (Auto) 81 % (37-80); Nucleated Red Blood Cell # 0.00 Thou/mm3 (0.00-0.00); Nucleated Red Blood Cell % 0 /100 WBC (0); Platelet Count 143 Thou/mm3 (140-440); RDW Standard Deviation 54.6 fL (36.4-46.3); Red Blood Count 2.97 Miln/mm3 (4.00-5.20); White Blood Count 9.7 Thou/mm3 (3.6-11.0)
[2025-03-05 07:26] LABS: Albumin, Serum 3.8 gm/dL (3.4-4.8); Anion Gap 8 (7-16); BUN/Creatinine Ratio 34 Ratio (12-20); Blood Urea Nitrogen 78 mg/dL (9-23); Calcium 9.2 mg/dL (8.3-10.6); Calcium (Corrected) 9.4 mg/dL (8.5-10.1); Carbon Dioxide 27.7 mMol/L (20.0-31.0); Chloride 99 mMol/L (98-107); Creatinine (Component) 2.3 mg/dL (0.6-1.3); Estimated Creatinine Clearance 14.1 mL/min (>60); Glucose 113 mg/dL (74-106); Osmolality,Calculated 294 (275-295); Phosphorous 4.6 mg/dL (2.4-5.1); Potassium 4.9 mMol/L (3.4-5.1); Sodium 135 mMol/L (136-145); eGFR 20 See Note
[2025-03-05] MEDS: APIXABAN 2.5 MG TABLET PO (08:28)
[2025-03-05] MEDS: BUMETANIDE INJ 0.25 MG/ML VIAL 4 ML 1 MG IVP (08:29)
--- NOTE | 2025-03-05 08:39 | PD.RESDS ---
Planned Discharge Date 03/05/25 DS: Providers Provider Date of admission: 03/01/25 18:24 Primary care physician: Yessy Diaz MD Admitting Provider: Yessy Diaz MD Attending Provider on Admission: Yessy Diaz MD Consults: 03/01/25 21:11 Consult to Cardiology Routine Comment: CHF, afib Consulting Provider: Sergio Vasquez 03/03/25 08:54 Referral Physical Therapy Urgent Comment: Physician Instructions: Instructions: Started on atenolol yesterday, want to see if she can still walk ok. Ambulatory at baseline. Plan to dc tomorrow. Thank you! Attending Provider on DC: Arnol Mendez MD Discharging Provider: Kd Crowe DO Anticipated date of discharge: 03/04/25 Hospital Course Hospital Course Hospital course: Chief complaint: SOB, fatigue History of present illness: Ms. Washington is an 84 year-old Cameroonian lady who is well-known to me from my practice with past medical history of bronchial asthma with recurrent episodes of exacerbation, COPD, extensive history of hyperuricemia/gout, - s/p TAVR, A-fib on Eliquis, hypertension, hypothyroidism, and history of congestive heart failure (under Dr. Hartley), CKD IV who lives along with her sister presented to [facility] with a chief complaint of SOB sent from my office due to anasarca. In my office patient was noted to have significant shortness of breath and tachycardia with a heart rate of 152. In the ED patient noted to be in A-fib with RVR. Blood pressure 92/75, heart rate 112. On OxyMask. Hemoglobin 10.7, platelets 170. Sodium 138, potassium 5.6, bicarbonate 15.6, BUN 93, creatinine 2.3, glucose 112, calcium 9.7, magnesium 2.3, LFTs normal, BNP 246, albumin 4.6, TSH 6.64 Venous Doppler ultrasound lower extremity negative. Chest x-ray showed congestive heart failure. EKG showed A-fib with RVR Home medications included albuterol, allopurinol, Eliquis, iron, Flovent, Lasix, levothyroxine, Cozaar, Cardizem 03/02/25: Patient seen and assessed at bedside. On telemetry. S/p diltiazem IV pushes. Overnight, patient remained in afib with HR 120-130s. Gave another IV diltiazem 5 mg x1 in AM, improved HR to 110s. Consulted plaster pattern caster Dr. Vasquez, started on amiodarone 200mg BID and atenolol 25 BID. Lower extremity edema and breathing improved significantly since yesterday. Potassium 4.9 (from 5.6), creatinine 2.1 (from 2.3), GFR 23. No need for dialysis as she improved with diuresis. Will continue IV Bumex 2mg daily, monitor on telemetry. Resume home Eliquis 2.5 mg BID, allopurinol, and levothyroxine. 03/03/25: Patient seen and assessed at bedside. On telemetry. Feeling well. Continues to be in afib but HR improved to 90s-low 100s. UOP 2.9L overnight. BP systolic 90s-110s. Lower extremity edema continues to improve, saturating well off oxygen at bedside. Potassium 5.1, bicarb 23.4 (from 18.8), creatinine 1.8 (from 2.1). Continue amiodarone and atenolol per cardiology. PT consulted to assesses ambulatory status, ambulatory at baseline. No need for dialysis as above. Follow up echo read. Plan for discharge tomorrow if patient remains stable. Time Spent with Patient Time attestation: Total time spent providing and/or coordinating discharge services: Exam Vital Signs Temp Pulse Resp BP Pulse Ox O2 Del Method O2 Flow Rate 97.0 F 87 18 106/58 L 96 Room Air 2 03/05/25 04:00 03/05/25 08:29 03/05/25 07:11 03/05/25 08:29 03/05/25 07:11 03/05/25 04:00 03/05/25 07:11 Discharge Plan Plan Patient Disposition: Home w/HOME HEALTH Prescriptions/Referrals Prescriptions/Med Rec: New atenolol 25 mg Tablet 25 mg PO BID Qty: 60 0RF Eliquis 2.5 mg Tablet 2.5 mg PO BID Qty: 60 0RF sodium polystyrene sulfonate 15 gram powder 15 g PO QDAY 30 Days Qty: 454 0RF Continued levothyroxine [Synthroid] 50 mcg Tablet 50 mcg PO QDAY allopurinol 300 mg Tablet 300 mg PO QDAY fluticasone propionate [Flovent HFA] 220 mcg/actuation Hfa Aerosol Inhaler 1 puff inhalation BID albuterol sulfate [Ventolin HFA] 90 mcg/actuation Hfa Aerosol Inhaler 2 puff inhalation Q8H PRN (Reason: SOB) ferrous sulfate [Iron (ferrous sulfate)] 325 mg (65 mg iron) Tablet 325 mg PO BID bumetanide 2 mg tablet 2 mg PO DAILY Patient Comments: TAKE 1 TABLET BY MOUTH EVERY DAY diltiazem HCl 240 mg capsule,extended release 24hr 240 mg PO Q24H aspirin 81 mg tablet 81 mg PO QDAY Discontinued losartan [Cozaar] 100 mg Tablet 100 mg PO QDAY Eliquis 5 mg Tablet 5 mg PO BID furosemide [Lasix] 40 mg tablet 40 mg PO QDAY Qty: 30 0RF spironolactone 25 mg tablet 25 mg PO DAILY Referrals: Yessy Diaz MD [Primary Care Provider, Nephrology] Patient/Caregiver Discharge Instructions Discharge Activity: activity as tolerated Print Language: Greenlandic Activity Restrictions/Additional Instructions: f/u with dr. diaz, dr. witt in 1 week come back to er if Cp, SOB ++ Stand Alone Forms: Juliana Award Info., Patient Portal Info Letter
--- NOTE | 2025-03-05 10:24 | PD.RESPRO ---
Documentation for date of: 03/05/25 Exam Vital Signs Temp Pulse Resp BP Pulse Ox O2 Del Method O2 Flow Rate 97.0 F 87 18 106/58 L 96 Room Air 2 03/05/25 04:00 03/05/25 08:29 03/05/25 07:11 03/05/25 08:29 03/05/25 07:11 03/05/25 04:00 03/05/25 07:11 Objective Labs 03/05/25 06:45 03/05/25 06:45 Labs: Laboratory Results - last 24 hr 03/04/25 03/05/25 13:45 06:45 WBC 9.7 D RBC 2.97 L Hgb 9.5 L Hct 30.2 L MCV 102 H MCH 32.0 MCHC 31.5 RDW Std Deviation 54.6 H Plt Count 143 Neut % (Auto) 81 H Lymph % (Auto) 6 L [place] % (Auto) 9 Eos % (Auto) 4 Baso % (Auto) 0 Neut # (Auto) 7.9 H Lymph # (Auto) 0.6 L [place] # (Auto) 0.9 H Eos # (Auto) 0.3 Baso # (Auto) 0.0 Immature Gran # (Auto) 0.04 H Absolute Nucleated RBC 0.00 Immature Gran % 0 Nucleated RBC % 0 Sodium 137 135 L Potassium 4.8 D 4.9 Chloride 100 99 Carbon Dioxide 27.0 27.7 Anion Gap 10 8 BUN 72 H 78 H Creatinine 2.1 H 2.3 H Estim Creat Clear Calc Not Performed. 14.1 L eGFR 23 L 20 L BUN/Creatinine Ratio 34 H 34 H Glucose 126 H 113 H Calculated Osmolality 297 H 294 Calcium 8.9 9.2 Corrected Calcium 8.9 9.4 Phosphorus 4.4 4.6 Albumin 4.0 3.8 Quality Measures Quality Measures none Assessment & Plan Assessment Current Active Medications: Generic Name Dose Route Start Last Admin Trade Name Freq PRN Reason Stop Dose Admin Acetaminophen 650 mg 03/01/25 18:24 Acetaminophen 325 Mg Tablet PO 03/31/25 18:23 Q6H PRN Fever >101.5 or pain 1-3 Albuterol/Ipratropium 3 ml 03/01/25 18:38 Albuterol/Ipratropium (Duoneb) Rt Emily 3 Ml Nebu INH 03/31/25 18:37 Q2HR PRN SHORTNESS OF BREATH OR WHEEZE Albuterol/Ipratropium 3 ml 03/01/25 19:00 03/05/25 07:11 Albuterol/Ipratropium (Duoneb) Rt Emily 3 Ml Nebu INH 03/31/25 18:59 3 ml Q6HRRT ROSEMARIE Administration Allopurinol 300 mg 03/02/25 09:00 03/05/25 08:28 Allopurinol 100 Mg Tablet PO 04/01/25 08:59 300 mg QDAY ROSEMARIE Administration Apixaban 2.5 mg 03/02/25 21:00 03/05/25 08:28 Apixaban 2.5 Mg Tablet PO 04/01/25 20:59 2.5 mg BID ROSEMARIE Administration Atenolol 25 mg 03/02/25 09:00 03/05/25 08:28 Atenolol 25 Mg Tablet PO 04/01/25 08:59 25 mg BID ROSEMARIE Administration Bumetanide 1 mg 03/04/25 09:00 03/05/25 08:29 Bumetanide Inj 0.25 Mg/Ml Vial 4 Ml IVP 04/03/25 08:59 1 mg QDAY ROSEMARIE Administration Diltiazem HCl 60 mg 03/04/25 18:00 03/05/25 05:06 Diltiazem 30 Mg Tablet PO 04/03/25 17:59 60 mg Q6HR ROSEMARIE Administration Diltiazem HCl 10 mg 03/04/25 13:11 03/04/25 13:27 Diltiazem Inj 5 Mg/Ml Vial 5 Ml IV 04/03/25 13:10 10 mg Q4HR PRN Administration HR more than 120 Levothyroxine Sodium 50 mcg 03/02/25 05:00 03/05/25 05:06 Levothyroxine Sodium 25 Mcg Tablet PO 04/01/25 04:59 50 mcg ACBR ROSEMARIE Administration Midodrine 5 mg 03/04/25 14:00 03/05/25 05:06 Midodrine 5 Mg Tablet PO 04/03/25 13:59 5 mg TID ROSEMARIE Administration Sodium Chloride 3 ml 03/01/25 16:43 Sodium Chloride Rt Emily 0.9% 3 Ml Nebu INH 03/31/25 16:42 PRN PRN SOLN
--- NOTE | 2025-03-05 10:25 | PD.RESDS ---
Planned Discharge Date 03/05/25 DS: Providers Provider Date of admission: 03/01/25 18:24 Primary care physician: Yessy Diaz MD Admitting Provider: Yessy Diaz MD Attending Provider on Admission: Yessy Diaz MD Consults: 03/01/25 21:11 Consult to Cardiology Routine Comment: CHF, afib Consulting Provider: Sregio Vasquez 03/03/25 08:54 Referral Physical Therapy Urgent Comment: Physician Instructions: Instructions: Started on atenolol yesterday, want to see if she can still walk ok. Ambulatory at baseline. Plan to dc tomorrow. Thank you! Attending Provider on DC: Marisel Villavicencio DO Discharging Provider: Marisel Villavicencio DO DS: Diagnosis Problem List Completed Was Problem List Reviewed/Reconciled?: Yes Hospital Course Hospital Course Hospital course: Reason for hospitalization: Ms. Washington is an 84 year-old Luxembourger lady who is well-known to me from my practice with past medical history of bronchial asthma with recurrent episodes of exacerbation, COPD, extensive history of hyperuricemia/gout, - s/p TAVR, A-fib on Eliquis, hypertension, hypothyroidism, and history of congestive heart failure (under Dr. Hartley), CKD IV who lives along with her sister presented to [facility] with a chief complaint of SOB sent from Dr. Diaz's office for anasarca. Consulted translator and interpreter Dr. Vasquez as patient was also found to be in afib with RVR. Echo showed EF 50 to 55%, severe pulmonary hypertension with right ventricular volume overload, moderate MAC with 3+ MR, aortic bioprosthesis with trace AR. Moderate to severe TR. Severely enlarged left and right atrium, dilated IVC. Patient was aggressively diuresis with significant improvement in her ansarca, no need for dialysis. Per cardiology, she was also started on atenolol 25 mg BID, diltiazem 240 daily, and midodrine 5 mg TID, now rate controlled with HR in 60s. Also presented with acute hyperkalemia, was resolved with Keyexelate which she will continue outpatient. Patient is medically stable upon discharge back home, already has home oxygen. New medications as below, patient was instructed to follow up with PCP within 1 week of discharge with renal panel. Discharge Recommendations: Follow up with primary care physician within 1 week of discharge Follow up with Cardiology within 2 weeks of discharge. Instructions have been explained to the patient with regards to their medications and how to take them. Patient was able to explain back to physician and nursing staff how to take their medications. Patient expressed understanding with instructions. New Medications: You have been prescribed Atenolol 25mg twice a day, Diltiazem 240mg once a day, Eliquis 2.5mg twice a day, Kaexylate 15gm once a day, midodrine 5 mg three times a day STOP losartan and spiranolactone Continue to take the rest of your medications as prescribed by your primary care physician. Patient has been explained that should any symptoms recur or worsen patient is instructed to return to the Emergency Department. Hospital Diagnoses: #Acute hyperkalemia #FRAN on CKD IIIb 2/2 prerenal azotemia #Acute CHF exacerabation #Hx HFpEF (EF 50-55%) #Afib with RVR #Hx afib on Eliquis #Hypertensive urgency (resolved) #Hypertension #Hypothyroidism #Diabetes Type 2 #Hx bronchial asthma with recurrent episodes of exacerbation #COPD #Gout #Anemia, normocytic Disposition: Home Status at Discharge Cognitive/behavioral status at discharge: Stable Functional status at discharge: independent ambulation Overall status at discharge: patient is progressing back to baseline Time Spent with Patient Time attestation: Total time spent providing and/or coordinating discharge services: at least 30 minutes of care coordination Time spent: Greater than 30 minutes Exam Vital Signs Temp Pulse Resp BP Pulse Ox O2 Del Method O2 Flow Rate 97.0 F 87 18 106/58 L 96 Room Air 2 03/05/25 04:00 03/05/25 08:29 03/05/25 07:11 03/05/25 08:29 03/05/25 07:11 03/05/25 04:00 03/05/25 07:11 Narrative Exam Physical Exam General: Awake and in no acute distress. Conversational and non-toxic appearing. HEENT: Normocephalic, atraumatic, mucous membranes moist. Heart: Regular rate and rhythm, normal S1 and S2, 3/5 systolic murmur with click in second right intercostal space. Lungs: Clear to auscultation with no wheezing or crackles. Abdomen: Soft, nondistended, nontender, positive bowel sounds. No guarding or rebound tenderness. Neurologic: Alert and oriented x3, no gross neurological deficit, and patient able to move all 4 extremities. Extremities: No edema. Wrinkles visible. Skin: No rash or ecchymoses. Discharge Plan Plan Patient Disposition: Home w/HOME HEALTH Care Plan Goals: Follow up with primary care physician Dr. Diaz within 1 week of discharge with repeat renal panel Follow up with Cardiology within 2 weeks of discharge. Instructions have been explained to the patient with regards to their medications and how to take them. Patient was able to explain back to physician and nursing staff how to take their medications. Patient expressed understanding with instructions. New Medications: You have been prescribed Atenolol 25mg twice a day, Diltiazem 240mg once a day, Eliquis 2.5mg twice a day, Kaexylate 15gm once a day, midodrine 5 mg three times a day STOP spiranolactone and losartan Continue to take the rest of your medications as prescribed by your primary care physician. Patient has been explained that should any symptoms recur or worsen patient is instructed to return to the Emergency Department. Prescriptions/Referrals Prescriptions/Med Rec: New atenolol 25 mg Tablet 25 mg PO BID Qty: 60 0RF Eliquis 2.5 mg Tablet 2.5 mg PO BID Qty: 60 0RF sodium polystyrene sulfonate 15 gram powder 15 g PO QDAY 30 Days Qty: 454 0RF midodrine 5 mg tablet 5 mg PO TID Qty: 90 0RF Rx Instructions: do not give last dose of day after 6PM or within 4 hrs of bedtime diltiazem HCl [Cardizem CD] 240 mg capsule,extended release 24hr 240 mg PO QAM Qty: 30 0RF Continued levothyroxine [Synthroid] 50 mcg Tablet 50 mcg PO QDAY allopurinol 300 mg Tablet 300 mg PO QDAY fluticasone propionate [Flovent HFA] 220 mcg/actuation Hfa Aerosol Inhaler 1 puff inhalation BID albuterol sulfate [Ventolin HFA] 90 mcg/actuation Hfa Aerosol Inhaler 2 puff inhalation Q8H PRN (Reason: SOB) ferrous sulfate [Iron (ferrous sulfate)] 325 mg (65 mg iron) Tablet 325 mg PO BID bumetanide 2 mg tablet 2 mg PO DAILY Patient Comments: TAKE 1 TABLET BY MOUTH EVERY DAY diltiazem HCl 240 mg capsule,extended release 24hr 240 mg PO Q24H aspirin 81 mg tablet 81 mg PO QDAY Discontinued losartan [Cozaar] 100 mg Tablet 100 mg PO QDAY Eliquis 5 mg Tablet 5 mg PO BID furosemide [Lasix] 40 mg tablet 40 mg PO QDAY Qty: 30 0RF spironolactone 25 mg tablet 25 mg PO DAILY Referrals: Yessy Diaz MD [Primary Care Provider, Nephrology] Outpatient Orders (i.e. Home Health, Labs, Imaging): Renal Function Panel (Routine) Location: None Selected Ordered By: Marisel Villavicencio Patient/Caregiver Discharge Instructions Discharge Activity: activity as tolerated Other Discharge Activity Instructions:: Follow up with primary care physician Dr. Diaz within 1 week of discharge with repeat renal panel Follow up with Cardiology within 2 weeks of discharge. Instructions have been explained to the patient with regards to their medications and how to take them. Patient was able to explain back to physician and nursing staff how to take their medications. Patient expressed understanding with instructions. New Medications: You have been prescribed Atenolol 25mg twice a day, Diltiazem 240mg once a day, Eliquis 2.5mg twice a day, Kaexylate 15gm once a day, midodrine 5 mg three times a day STOP spiranolactone and losartan Continue to take the rest of your medications as prescribed by your primary care physician. Patient has been explained that should any symptoms recur or worsen patient is instructed to return to the Emergency Department. Education Materials: AFL/Afib, Kidney Disease Potassium in Diet, Acute Kidney Failure Dc, Hyperkalemia Dc Print Language: Macanese Activity Restrictions/Additional Instructions: f/u with dr. diaz, dr. witt in 1 week come back to er if Cp, SOB ++ Stand Alone Forms: Juliana Award Info., Patient Portal Info Letter Discharge Order Discharge Orders: Discharge (Routine); Ordered 03/05/25 Ordered By: Kd Crowe Quality Discharge Quality Measures VTE prophylaxis Attestestation MD Attestation Patient seen and examined with resident physician Dr. Villavicencio. Note reviewed, agree with findings and recommendations. Patient will be discharged on diuretics, Eliquis, atenolol, Cardizem. Spoke to Dr. Hartley.
--- NOTE | 2025-03-05 10:59 | PC.SS ---
SS update: CORROSION ENGINEER was notified by bedside nurse that patient is unable to slat pickler her medicine until March and requested that CORROSION ENGINEER notify doctors so they can call pharmacy. CORROSION ENGINEER notified Dr. Campbell, Dr. Campbell stated he is unsure of how to call pharmacy, CORROSION ENGINEER notified Dr. Mendez that patient is unable to slat pickler her medicine until March per bedside nurse Nirmala.
--- NOTE | 2025-03-05 15:27 | PC.NURSE ---
Patient tab [facility] brought oxygen tank to bedside. Patient discharged on 2L of oxygen, oxygen saturation at 95%.
--- NOTE | 2025-03-05 15:45 | ESPR_ITS ---
<Statement entered by Sergio Vasquez MD - 03/12/25 17:38> I personally evaluated examined this patient with resident physician and resident team patient with multiple medical problems including aortic stenosis status post aortic valve surgical replacement and A-fib. Rapid rates now rate controlled well she is still weak but feeling a lot better not having shortness of chest pain patient can be discharged home in stable if she remains stable and I will see her in the office in 1 week following discharge. Agree with treatment plan recommendations as documented by Dr. Cleaning PGY2 resident physician all essential components of personally reviewed by me Documentation for date of: 03/05/25 Subjective Subjective Interval history: Patient examined at bedside. Doing well, has no major complaints. Vitals are stable, telemetry reviewed remains in A-fib heart rate around 80s. Patient is safe for discharge from cardiology standpoint. Patient to continue diltiazem to 40 mg daily and atenolol 25 mg twice daily. Eliquis 2.5 mg twice daily for atrial fibrillation. Patient to follow-up in 1 week at clinic. Exam Vital Signs Temp Pulse Resp BP Pulse Ox O2 Del Method O2 Flow Rate 97.2 F 70 18 116/67 95 Nasal Cannula 2 03/05/25 15:15 03/05/25 15:15 03/05/25 15:15 03/05/25 15:15 03/05/25 15:15 03/05/25 15:15 03/05/25 15:15 Narrative Exam Physical Exam General: Awake and in no acute distress. Conversational and non-toxic appearing. HEENT: Normocephalic, atraumatic, mucous membranes moist. Heart: Regular rate and rhythm, normal S1 and S2, 3/5 systolic murmur with click in second right intercostal space. Lungs: Clear to auscultation with no wheezing or crackles. Abdomen: Soft, nondistended, nontender, positive bowel sounds. No guarding or rebound tenderness. Neurologic: Alert and oriented x3, no gross neurological deficit, and patient able to move all 4 extremities. Extremities: No edema. Wrinkles visible. Skin: No rash or ecchymoses. Objective Labs 03/05/25 06:45 03/05/25 06:45 Labs: Laboratory Results - last 24 hr 03/05/25 06:45 WBC 9.7 D RBC 2.97 L Hgb 9.5 L Hct 30.2 L MCV 102 H MCH 32.0 MCHC 31.5 RDW Std Deviation 54.6 H Plt Count 143 Neut % (Auto) 81 H Lymph % (Auto) 6 L [place] % (Auto) 9 Eos % (Auto) 4 Baso % (Auto) 0 Neut # (Auto) 7.9 H Lymph # (Auto) 0.6 L [place] # (Auto) 0.9 H Eos # (Auto) 0.3 Baso # (Auto) 0.0 Immature Gran # (Auto) 0.04 H Absolute Nucleated RBC 0.00 Immature Gran % 0 Nucleated RBC % 0 Sodium 135 L Potassium 4.9 Chloride 99 Carbon Dioxide 27.7 Anion Gap 8 BUN 78 H Creatinine 2.3 H Estim Creat Clear Calc 14.1 L eGFR 20 L BUN/Creatinine Ratio 34 H Glucose 113 H Calculated Osmolality 294 Calcium 9.2 Corrected Calcium 9.4 Phosphorus 4.6 Albumin 3.8 Quality Measures Quality Measures VTE prophylaxis Advance care planning discussed with:: patient Assessment & Plan Plan 84 year-old Mauritian lady who is well-known to me from my practice with past medical history of bronchial asthma with recurrent episodes of exacerbation, COPD, extensive history of hyperuricemia/gout, - s/p TAVR, A-fib on Eliquis, hypertension, hypothyroidism, and history of congestive heart failure (under Dr. Hartley), CKD IV who was admitted for fluid overload secondary to cardiorenal syndrome. Cardiology was consulted for A-fib with RVR. #Afib with RVR #Hx afib on Eliquis #Hx HFpEF (EF 50-55%) #Hypertension - Continue diltiazem to 40 mg daily - Eliquis 2.5 twice daily - Atenolol 25 mg twice daily - Stop taking losartan - Follow-up in clinic 1 week #Acute hyperkalemia #FRAN on CKD IIIb 2/2 prerenal azotemia #Hypertensive urgency (resolved) #Hypothyroidism #Diabetes Type 2 #Hx bronchial asthma with recurrent episodes of exacerbation #COPD #Gout #Anemia, normocytic Primary care team to manage above conditions and ongoing care needs. The patient's management plan was discussed with my attending physician Dr. Vasquez. Queenie Cleaning, PGY-2
--- NOTE | 2025-03-06 10:25 | PC.CC ---
HH ref sent out, waiting for response
== END 2025-03-05 15:35 | disposition home health service (06) | DRG 305 ==
LOC: SERX 16:58 → SERHOLD 18:33 → S2NX 22:24
PROVIDERS: Physician Assistant; Admitting Provider Internal Medicine; Emergency Provider Emergency Medicine; PCP Internal Medicine; Visit Provider Internal Medicine
DX: I16.0 Hypertensive urgency (principal); I48.19 Other persistent atrial fibrillation; N18.4 Chronic kidney disease, stage 4 (severe); I50.32 Chronic diastolic (congestive) heart failure; N17.9 Acute kidney failure, unspecified; I13.0 Hypertensive heart and chronic kidney disease with heart failure and stage 1 through stage 4 chronic kidney disease, or unspecified chronic kidney disease; D63.1 Anemia in chronic kidney disease; E03.9 Hypothyroidism, unspecified; M10.9 Gout, unspecified; Z79.01 Long term (current) use of anticoagulants; I08.0 Rheumatic disorders of both mitral and aortic valves; I27.29 Other secondary pulmonary hypertension; Z95.2 Presence of prosthetic heart valve; E11.22 Type 2 diabetes mellitus with diabetic chronic kidney disease; E87.5 Hyperkalemia; J44.89 Other specified chronic obstructive pulmonary disease; Z79.899 Other long term (current) drug therapy; Z88.0 Allergy status to penicillin
CPT/HCPCS: 36415; 71045; 80053; 80061; 80069; 80074; 81001; 82607; 82746; 83540; 83550; 83735; 83880; 84100; 84443; 84484; 85025; 85610; 85730; 87077; 87086; 87186; 93005; 93306; 93971; 94640; 94644; 94664; 96374; 96375; 97162; 99285; A9270; J0613; J1815; J3475; J3490; J7050; J7611; Q0138; Q5105

== ENCOUNTER 2025-03-07 09:06 | Inpatient (IN) | payer OTHER, MEDICARE, SELFPAY ==
[2025-03-07] VITALS (51 sets, daily range): BP systolic 71–121; BP diastolic 41–97; PULSE 70–113; RESP 13–98; TEMP 36–38.4; O2SAT 90–99
--- NOTE | 2025-03-07 | XR_ITS ---
Ultrasound-guided needle placement right internal jugular vein Temporary dialysis catheter insertion, percutaneous Fluoroscopy AP chest, portable, single view. Date and time of procedure: March 07, 2025, 1335 hours INDICATIONS: Acute renal insufficiency, need for stat dialysis today Informed consent provided Technique: A timeout was completed verifying correct patient, procedure, site, positioning, and special equipment if applicable. The patient was placed in a dependent position appropriate for dialysis catheter placement based on the vein to be cannulated. The patient's right neck was prepped and draped in sterile fashion. Maximum Sterile Barrier Technique used including cap, mask, sterile gown, sterile gloves, and sterile full body drape. If ultrasound technique used: sterile gel and sterile probe covers. Hand Hygiene performed using proper scrub, soap and water, or alcohol-based hand rub. 1% lidocaine was used to anesthetize the surrounding skin area The [employer] portable apparatus utilized to confirm patency of the right internal jugular vein Utilizing ultrasonographic guidance successful 21-gauge needle puncture into the right internal jugular vein. Ultrasound images were recorded and stored. Vessel micropuncture was performed with 21-gauge needle. 0.18 wire guide is introduced into the vein. 0.18 wire is introduced into the vena cava under fluoroscopy. Dilator was placed over the wire guide followed by a temporary 15 cm 13 Spanish vas cath in proper position under fluoroscopic guidance The catheter is sutured in place to the skin and a sterile dressing applied. Perfusion to the extremity distal to the point of catheter insertion is checked and found to be adequate Attending radiologist was present for the entire procedure Estimated blood loss 2 cc. The patient tolerated the procedure well and there were no complications Impression: Successful ultrasound-guided needle placement right internal jugular vein Successful temporary dialysis catheter insertion, percutaneous Fluoroscopy 0.01-minute radiation dose 0.12 mGy 1 spot fluoroscopic chest film. AP chest performed at completion procedure demonstrates satisfactory position dialysis catheter. May use dialysis catheter.
--- NOTE | 2025-03-07 09:24 | EKG_ITS ---
[facility] Test Date: 2025-03-07 Pat Name: HALLE EASLEY Department: Room: - Gender: Female Cokeman: : 1940 Requested By: Rebeca David Order Number: [id number] Reading MD: Rebeca David Measurements Intervals [place] Rate: 107 P: [place]: QRS: -15 QRSD: 100 T: 75 QT: 358 QTc: 479 Interpretive Statements ATRIAL FIBRILLATION WITH RAPID VENTRICULAR RESPONSE INFERIOR MYOCARDIAL INFARCTION , OF INDETERMINATE AGE [40+ ms Q WAVE AND/OR ST/T ABNORMALITY IN II/aVF] Compared to ECG 03/03/2025 16:51:40 Myocardial infarct finding now present Incomplete right bundle-branch block no longer present /store/S0/[id number]/ecg/[id number].pdf
--- NOTE | 2025-03-07 09:51 | EKG_ITS ---
[facility] Test Date: 2025-03-07 Pat Name: HALLE EASLEY Department: Room: - Gender: Female Health Commissioner: : 1940 Requested By: Jimmie James Order Number: [id number] Reading MD: Jimmie James Measurements Intervals [place] Rate: 106 P: [place]: QRS: -28 QRSD: 101 T: 69 QT: 369 QTc: 490 Interpretive Statements ATRIAL FIBRILLATION WITH RAPID VENTRICULAR RESPONSE Compared to ECG 03/07/2025 09:25:47 Myocardial infarct finding no longer present /store/S0/[id number]/ecg/[id number].pdf
[2025-03-07 10:01] LABS: Lactate (Lactic Acid) 2.5 mMol/L (0.4-2.0)
--- NOTE | 2025-03-07 10:08 | EDNOTE_ITS ---
<Statement entered by Rebeca Smith MD - 03/09/25 17:43> I, Rebeca Smith MD, have reviewed the history, exam, and assessment of the patient. I have evaluated the patient independently and agree with the plan of care documented by [ ]. All diagnostic studies were reviewed and discussed. I confirm the diagnosis as documented by the Resident. I was present during the Medical Decision Making for this patient. The patient's plan of care was created between myself and the Resident and consistent with our discussion of the patient's case. ED General RME/HPI General Chief complaint: Weakness Stated complaint: WEAKNESS Time Seen by Provider: 03/07/25 09:20 Arrival date/time: 03/07/25 09:06 Related Data Home Medications ?Medication ?Instructions ?Recorded ?Confirmed levothyroxine 50 mcg tablet 50 mcg PO QDAY 10/27/17 (Synthroid) albuterol sulfate 90 mcg/actuation 2 puff inhalation Q 8H PRN SOB 05/28/19 03/01/25 aerosol inhaler (Ventolin HFA) allopurinol 300 mg tablet 300 mg PO QDAY 05/28/1912/16 fluticasone propionate 220 1 puff inhalation BID 05/2703/01/25 mcg/actuation HFA aerosol inhaler (Flovent HFA) ferrous sulfate 325 mg (65 mg 325 mg PO BID 05/29/19 1 05/02/24 iron) tablet (Iron (ferrous sulfate)) aspirin 81 mg tablet 81 mg PO QDAY 03/01/2503/01 bumetanide 2 mg tablet 2 mg PO DAILY 03/01/2503/01 diltiazem HCl 240 mg 240 mg PO Q24H 03/01/2512/16 capsule,extended release 24 hr Previous Rx's ?Medication ?Instructions ?Recorded apixaban 2.5 mg tablet (Eliquis) 2.5 mg PO BID #60 tab s 03/04/25 atenolol 25 mg tablet 25 mg PO BID #60 tabs sodium polystyrene sulfonate 15 15 g PO QDAY 1 month # 454 grams 03/04/25 gram oral powder diltiazem HCl 240 mg 240 mg PO QAM #30 caps 03/05 capsule,extended release 24 hr (Cardizem CD) midodrine 5 mg tablet 5 mg PO TID #90 tabs 5 Allergies Allergy/AdvReac Type Severity Reaction Status Date / Time Penicillins Allergy Unknown Verified 03/01/25 14:30 ED Exam Narrative Physical exam: Physical Exam: GENERAL: Awake but falls asleep at a moments notice, answers questions appropriately when awake, appears stated age, frail appearing HEENT: NC/AT. Dry mucosa. PERRLA/EOMI. Poor dentition with missing teeth, red crusted lips with dark blood CARDIO: Irregularly irregular, auscultated possible rub with grade IV/ systolic ejection murmur at left sternal border second intercostal space. No JVD PULM: No coughing or visible SOB but is on 4 L nasal cannula saturating 97%. Lungs CTA B/L. GI: Abdomen soft, mildly tender to palpation on right lower quadrant but otherwise nontender, nondistended, no rigidity or guarding. Borborygmi apparent SKIN/MSK/EXT: +1 pitting edema of the bilateral shins. No wounds/discoloration/rashes/amputations noted. +Pedal pulses present B/L. 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 STAT Care 03/07/25 09:51 Active Continuous Pulse Oximetry STAT Care 03/07/25 09:51 Completed Decision to Admit X1 Care 03/07/25 11:10 Completed EKG (ED ONLY) *Do not use* NOW Care 03/07/25 09:24 Completed EKG (ED ONLY) *Do not use* NOW Care 03/07/25 09:51 Completed EKG (ED ONLY) *Do not use* NOW Care 03/07/25 10:58 Completed In and Out Catheter X1 Care 03/07/25 09:32 Completed In and Out Catheter X1PRN Care 03/07/25 09:51 Completed Insert IV NOW Care 03/07/25 09:51 Completed Notify provider NEEDED Care 03/07/25 11:33 Active Notify provider NOW Care 03/07/25 10:58 Active Strict Intake and Output Routine Care 03/07/25 09:51 Ordered CXRP [XR chest 1V portable] Stat Exams 03/07/25 11:15 Completed EKG (ED Only) Stat Exams 03/07/25 09:24 Draft EKG (ED Only) Stat Exams 03/07/25 09:51 Draft EKG (ED Only) Stat Exams 03/07/25 10:58 Ordered IR dialysis catheter insertion Stat Exams 03/07/25 Ordered B-Type Natriuretic Peptide Stat Lab 03/07/25 09:48 Completed Blood Culture (Lab) Stat Lab 03/07/25 09:48 Received CBC AM DRAW Lab 03/08/25 05:00 Ordered CBC AM DRAW Lab 03/09/25 05:00 Ordered CBC AM DRAW Lab 03/10/25 05:00 Ordered CBC Stat Lab 03/07/25 09:48 Completed Comprehensive Metabolic Panel AM DRAW Lab 03/08/25 05:00 Ordered Comprehensive Metabolic Panel AM DRAW Lab 03/09/25 05:00 Ordered Comprehensive Metabolic Panel AM DRAW Lab 03/10/25 05:00 Ordered Comprehensive Metabolic Panel Stat Lab 03/07/25 09:48 Completed LDH (Lactate Dehydrogenase) Stat Lab 03/07/25 09:48 Completed Lactate (Lactic Acid) Stat Lab 03/07/25 09:48 Results Lipase Stat Lab 03/07/25 09:48 Completed Magnesium AM DRAW Lab 03/08/25 05:00 Ordered Magnesium AM DRAW Lab 03/09/25 05:00 Ordered Magnesium AM DRAW Lab 03/10/25 05:00 Ordered Magnesium Stat Lab 03/07/25 09:48 Completed Partial Thromboplastin Time AM DRAW Lab 03/08/25 05:00 Ordered Partial Thromboplastin Time Stat Lab 03/07/25 09:48 Completed Phosphorous AM DRAW Lab 03/08/25 05:00 Ordered Phosphorous AM DRAW Lab 03/09/25 05:00 Ordered Phosphorous AM DRAW Lab 03/10/25 05:00 Ordered Phosphorous Stat Lab 03/07/25 09:48 Completed Procalcitonin Stat Lab 03/07/25 09:48 Completed Prothrombin Time with INR AM DRAW Lab 03/08/25 05:00 Ordered Prothrombin Time with INR Stat Lab 03/07/25 09:48 Completed Thyroid Stimulating Hormone AM DRAW Lab 03/08/25 05:00 Ordered Troponin I Stat Lab 03/07/25 09:48 Completed Troponin I Stat Lab 03/07/25 11:43 Received Urinalysis, C/S if Indicated Stat Lab 03/07/25 09:59 Completed Urine Culture Stat Lab 03/07/25 09:59 Received Acetaminophen Tab [Tylenol Tab] Med 03/07/25 11:38 Active 650 mg PO Q6H PRN Acetaminophen Tab [Tylenol Tab] Med 03/07/25 10:54 Discontinued 650 mg PO X1 ONE Aspirin Med 03/07/25 10:58 Discontinued 325 mg PO X1 ONE Heparin Inj Med 03/07/25 11:45 Discontinued 3,300 unit IV X1 ONE Heparin/D5w 25K 250 ML Ivpb [Heparin in D5w Ivpb] Med 03/07/25 11:00 Discontinued 25,000 unit in 250 ml IV 12 units/kg/hr Sodium Chloride 0.9% 500 ml [Ns] 500 ml Med 03/07/25 09:53 Discontinued IV 999 mls/hr atenoloL Med 03/07/25 10:37 Discontinued 25 mg PO X1 ONE cefTRIAXone/D5w 1gm IV premix [Rocephin/D5w 1gm IV Med 03/07/25 09:51 Discontinued premix] 1 gm in 50 ml IV X1 Code Status Routine Oth 03/07/25 11:33 Ordered Oxygen Delivery NOW RT 03/07/25 09:51 Active Oxygen Delivery PRN RT 03/07/25 11:38 Active Vital Signs Vital signs: Vital Signs Temperature 100.0 F 03/07/25 09:07 Pulse Rate 107 H 03/07/25 09:07 Respiratory Rate 20 03/07/25 09:07 Blood Pressure 108/70 03/07/25 09:07 Pulse Oximetry (%) 97 03/07/25 09:07 Oxygen Delivery Method Nasal Cannula 03/07/25 09:07 Oxygen Flow Rate 4 03/07/25 09:07 Discharge Plan Plan Patient Disposition: Admit Acute Care w/in Hospital Patient condition on transfer: Stable Problem List Clinical Impression: Acute renal failure MDM Narrative MDM hospital course (for use when minimal MDM required): HPI: 84-year-old female with past medical history of bronchial asthma, COPD on 2 L home oxygen, hyperuricemia/gout, aortic stenosis status post TAVR, A-fib on Eliq uis, hypertension, hypothyroidism, HFpEF with EF 50-55%, CKD stage IV presents to the ER on 03/07 due to weakness. Patient's son bedside corroborates story apparently patient since being discharged on 03/05 has been largely bed/chair bound and has been feeling weaker progressively. He states that he has been giving her all the medications as prescribed on discharge. Patient denies having any chest pain but does state that she feels short of breath and she does have left lower quadrant pain although she is unsure when it started. She states the pain is about a 7 out of 10 does not radiate anywhere. She denies any melena, hematochezia or hematemesis and states that she has not been constipated. On examination, please refer to the physical exam above; patient presented to the ER normotensive with tachycardia and atrial fibrillation heart rate of 107, respiratory rate of 20, febrile with a Tmax recorded at 101.2 ?F saturating 97 on 4 L nasal cannula. CBC shows severe leukocytosis with WBC of 26.7, macrocytic anemia with hemoglobin 9.7 likely anemia of chronic disease along with vitamin deficiency, thrombocytopenia, elevated coag panel with PT of 13.9 and a PTT of 40.3, CMP does show worsening kidney function with severe uremia with a BUN 128, creatinine 2.8 and eGFR of 16, lactic acid 2.5, LFTs show elevation in AST 93 but otherwise rest of LFTs are normal, troponin is 1.766 with BNP of 866 and Pro-Rene of 38.28. Urinalysis shows turbid urine with hematuria, pyuria and some bacteria with positive leukocyte esterase. Both EKGs show atrial fibrillation without RVR and some ST changes, chest x-ray shows suspicion for early bilateral perihilar pneumonia with prominent vascular congestion #Weakness Differentials include worsening kidney function, A-fib, CHF exacerbation, asthma exacerbation, electrolyte abnormality, sepsis from pneumonia? #Right lower quadrant tenderness Differentials include sepsis from intra-abdominal process, appendicitis, diverticulitis, enterocolitis, nephrolithiasis As noted above with imaging and laboratory findings Patient given 1 g of ceftriaxone and 500 cc bolus of NS due to elevated lactic acid as above #Uremic encephalopathy #FRAN on CKD, progressing towards ESRD status Patient's primary care and electrical drafter Dr. Diaz alerted Patient will require dialysis, temporary dialysis catheter to be placed by IR Monitor electrolytes #Chest pain, substernal #Elevated troponin Patient does have some risk factors for coronary artery disease as noted Cardiology made aware of the patient's EKG, troponin and history and other labs Recommendation is that the patient is likely having pericardial etiology compared to coronary artery disease Plan: Cardiology to follow the patient once she is admitted Patient seen and assessed with attending Dr. Luis James, DO PGY-2 Internal Medicine - GME Medication Administration(s) Medication Administration History Acetaminophen (Acetaminophen 325 Mg Tablet) 650 mg PO Q6H PRN PRN Reason: Fever >101.5 and pain 1-3 Stop: 04/06/25 11:37 Allopurinol (Allopurinol 100 Mg Tablet) 300 mg PO QDAY [facility] Stop: 04/07/25 08:59 Aspirin (Aspirin Ec 81 Mg Tabec) 81 mg PO QDAY [facility] Stop: 04/07/25 08:59 Atenolol (Atenolol 25 Mg Tablet) 25 mg PO BID [facility] Stop: 04/06/25 20:59 Diltiazem HCl (Diltiazem Cd 120 Mg Capcr) 240 mg PO Q24H [facility] Stop: 04/06/25 11:59 Piperacillin/Tazobactam/Dextrose (Zosyn) 2.25 gm in 50 mls @ 100 mls/hr IV X1 ONE; Protocol Stop: 03/07/25 12:39 Levothyroxine Sodium (Levothyroxine Sodium 25 Mcg Tablet) 50 mcg PO QDAY [facility] Stop: 04/07/25 08:59 Midodrine (Midodrine 5 Mg Tablet) 5 mg PO TID [facility] Stop: 04/06/25 21:59 Discontinued Medications Acetaminophen (Acetaminophen 325 Mg Tablet) 650 mg PO X1 ONE Stop: 03/07/25 10:55 Last Admin: 03/07/25 11:07 Dose: 650 mg Documented By: EF Aspirin (Aspirin 325 Mg Tablet) 325 mg PO X1 ONE Stop: 03/07/25 10:59 Last Admin: 03/07/25 11:07 Dose: 325 mg Documented By: EF Atenolol (Atenolol 25 Mg Tablet) 25 mg PO X1 ONE Stop: 03/07/25 10:38 Last Admin: 03/07/25 11:08 Dose: 25 mg Documented By: EF Bumetanide (Bumetanide 0.5 Mg Tablet) 2 mg PO DAILY [facility] Stop: 04/07/25 08:59 Heparin Sodium (Porcine) (Heparin Sod Inj 5000 Unit/Ml Vial) 3,300 unit 60 unit/kg (3300 unit) IV X1 ONE; Protocol Stop: 03/07/25 11:46 Ceftriaxone Sodium/Dextrose (Rocephin/D5w 1gm Iv Premix) 1 gm in 50 mls @ 100 mls/hr IV X1 ONE Stop: 03/07/25 10:20 Last Infusion: 03/07/25 10:53 Dose: Infused Documented By: Admin: 03/07/25 10:23 Dose: 100 mls/hr Documented By: EF Sodium Chloride (Ns) 500 mls @ 999 mls/hr IV .Q31M ONE Stop: 03/07/25 10:23 Last Infusion: 03/07/25 10:54 Dose: Infused Documented By: Admin: 03/07/25 10:23 Dose: 999 mls/hr Documented By: EF Heparin Sodium/Dextrose (Heparin In D5w Ivpb) 25,000 unit in 250 mls @ 6.559 mls/hr IV .Q24H [place]; Protocol Stop: 03/21/25 10:59 Last Admin: 03/07/25 11:40 Dose: Not Given Documented By: EF Non-Admin Reason: Cancelled by Provider Sodium Chloride (Ns) 250 mls @ 999 mls/hr IV .Q16M ONE Stop: 03/07/25 12:21 Last Admin: 03/07/25 12:18 Dose: 999 mls/hr Documented By: EF Midodrine (Midodrine 5 Mg Tablet) 5 mg PO X1 ONE Stop: 03/07/25 11:58 Last Admin: 03/07/25 12:04 Dose: 5 mg Documented By: EF Non-Formulary Medication (Sodium Polystyrene Sulfonate) 15 gm PO QDAY [facility] Stop: 04/07/25 08:59
[2025-03-07 10:11] LABS: Basophils # (Auto) 0.1 Thou/mm3 (0.0-0.2); Basophils % (Auto) 0 % (0-2.5); Eosinophils # (Auto) 0.1 Thou/mm3 (0.0-0.5); Eosinophils % (Auto) 0 % (0-10); Hematocrit 30.5 % (36.0-46.0); Hemoglobin 9.7 g/dL (12.0-16.0); Immature Granulocytes Auto 1.20 Thou/mm3 (0.00-0.00); Lymphocytes # (Auto) 0.2 Thou/mm3 (1.0-4.8); Lymphocytes % (Auto) 1 % (10-50); Mean Corpuscular HGB Conc 31.8 g/dl (31.0-37.0); Mean Corpuscular Hemoglobin 32.1 pg (25.0-35.0); Mean Corpuscular Volume 101 fL (80-100); Monocytes # (Auto) 0.6 Thou/mm3 (0.0-0.8); Monocytes % (Auto) 2 % (0-12); Neutrophils # (Auto) 24.6 Thou/mm3 (1.8-7.7); Neutrophils % (Auto) 92 % (37-80); Nucleated Red Blood Cell # 0.20 Thou/mm3 (0.00-0.00); Nucleated Red Blood Cell % 1 /100 WBC (0); RDW Standard Deviation 55.2 fL (36.4-46.3); Red Blood Count 3.02 Miln/mm3 (4.00-5.20); White Blood Count 26.7 Thou/mm3 (3.6-11.0)
[2025-03-07 10:12] LABS: Collection Type, Urine Clean Catch; Squamous Epithelial Cell,Urine 0 /hpf (0-5)
[2025-03-07] MEDS: SODIUM CHLORIDE 0.9% 500 ML 500 ML 999 ML IV (10:23)
[2025-03-07] MEDS: cefTRIAXone/D5w 1gm IV premix 1 GM/50 ML BAG IV (10:23)
[2025-03-07 10:29] LABS: Bacteria,Urine 2+; Bilirubin,Urine Negative (Negative); Blood,Urine 3+ (Negative); Clarity,Urine Turbid (Clear/Hazy); Color,Urine Yellow (Lt Yel-Yel); Glucose, Urine Negative (Negative); Ketones,Urine Negative (Negative); Leukocyte Esterase,Urine Positive (Negative); Nitrite,Urine Negative (Negative); PH,Urine 5.5 (5.0-7.0); Protein,Urine Trace (Neg - Trace); RBC,Urine 14 /hpf (0-3); Specific Gravity,Urine 1.011 (1.001-1.035); Urobilinogen,Urine Negative mg/dL (0.0-1.0); WBC,Urine 39 /hpf (0-5)
[2025-03-07 10:30] LABS: INR 1.3 (0.9-1.3); Partial Thromboplastin Time 40.3 Seconds (22.0-36.0); Prothrombin Time 13.9 Seconds (9.0-12.2)
[2025-03-07 10:31] LABS: B-Type Natriuretic Peptide 866 pg/mL (0-100)
[2025-03-07 10:54] LABS: Alanine Aminotransferase 18 U/L (10-49); Albumin, Serum 3.9 gm/dL (3.4-4.8); Albumin/Globulin Ratio 1.4 (1.2-2.2); Alkaline Phosphatase 50 U/L (46-116); Anion Gap 16 (7-16); Aspartate Amino Transferase 93 U/L (0-34); BUN/Creatinine Ratio 46 Ratio (12-20); Bilirubin,Total 0.6 mg/dL (0.3-1.2); Blood Urea Nitrogen 128 mg/dL (9-23); Calcium 8.4 mg/dL (8.3-10.6); Calcium (Corrected) 8.5 mg/dL (8.5-10.1); Carbon Dioxide 19.6 mMol/L (20.0-31.0); Chloride 94 mMol/L (98-107); Creatinine (Component) 2.8 mg/dL (0.6-1.3); Globulin 2.7 gm/dL (2.3-3.5); Glucose 140 mg/dL (74-106); LDH (Lactate Dehydrogenase) 435 U/L (120-246); Lipase 28 U/L (12-53); Magnesium 2.0 mg/dL (1.6-2.6); Osmolality,Calculated 304 (275-295); Phosphorous 5.2 mg/dL (2.4-5.1); Potassium 4.6 mMol/L (3.4-5.1); Procalcitonin 38.28 ng/ml (0.0-0.49); Sodium 130 mMol/L (136-145); Total Protein 6.6 gm/dL (5.7-8.2); eGFR 16 See Note
[2025-03-07 10:57] LABS: Troponin I 1.766 ng/mL (0.0-0.045)
--- NOTE | 2025-03-07 10:58 | EKG_ITS ---
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
[2025-03-07] MEDS: ACETAMINOPHEN 325 MG TABLET 650 MG PO (11:07)
[2025-03-07 11:13] LABS: Culture Indicated,Urine Yes
[2025-03-07 11:14] LABS: Platelet Count 51 Thou/mm3 (140-440)
[2025-03-07 11:15] LABS: Slide Review Platelets confirmed
--- NOTE | 2025-03-07 11:15 | XR_ITS ---
EXAMINATION: AP chest single view TECHNIQUE: AP portable upright chest single view Date and time: March 07, 2025, 1142 hours, comparison March 01, 2025 INDICATIONS: Sepsis alert today FINDINGS: Mild enlargement cardiac contour Prominent vascular congestion Suspicious for early perihilar pneumonia Aortic valve replacement satisfactory alignment IMPRESSION: Suspicious for early bilateral perihilar pneumonia
--- NOTE | 2025-03-07 12:00 | PD.RESHP ---
Documentation for date of: 03/07/25 [facility] History of Present Illness Chief complaint: AMS, SOB History of present illness: Ms. Washington is a 84 year old Citizen [place] lady who is well-known to Dr. Diaz from her practice with past medical history of bronchial asthma with recurrent episodes of exacerbation, COPD, extensive history of hyperuricemia/gout, aortic stenosis s/p TAVR, A-fib on Eliquis, hypertension, hypothyroidism, and HFpEF (follows Dr. Vasquez), CKD IV who lives along with her sister presented to [facility] with a chief complaint of generalized weakness for the past day. Limited history was unable to be obtained from patient due to worsening drowsiness, AOx2 on exam. Per son, patient was experiencing chills night after discharge with new nonproductive cough and worsening shortness of breath, was requiring 4L oxygen at home during the day (usually saturates at 2L overnight). Also became increasingly weak, unable to transfer herself to chair. Denied sick contacts at home. Last took all her home medications last night, including new Kayexelate. In ED, patient complaining of chest pressure and pain however she is also very confused and not answering questions appropriately. AOx2. BP 108/70, tachycardic with HR 107, RR 20, temperature 101.2, 97% on 4 L nasal cannula. WBC 26.7, hemoglobin 9.7 (at baseline), platelets 51,000. Sodium 130, potassium 4.6, chloride 94, bicarb 19.6. BUN 128, creatinine 2.8 (baseline 1.8-2.3), GFR 16. Phosphorus 5.2, magnesium 2.0. AST mildly elevated 93 however ALT and total bilirubin within normal limits. Lactic 2.5. LDH 435. Troponin 1.766, increased to 5.37. BNP 866. UA shows UTI (2+ bacteria, 39 WBC, positive leukocyte esterase) EKG shows atrial fibrillation, heart rate 107. Possible Possible mild ST elevations in inferior leads, however no longer visible on repeat EKG. CXR shows mild enlargement cardiac contour with pulmonary vascular congestion, also suspicion for early perihilar pneumonia. Given CFX 1 g, NS 500 bolus, Tylenol 650 mg, ASA 325 mg, atenolol 25 mg. Later given midodrine 15 mg, NS 250 bolus, Zosyn 2.25 g, and started on heparin drip. Patient was just previously admitted from 03/01 to 03/05/25 for acute hyperkalemia in setting of A-fib with RVR and fluid overload secondary to cardiorenal syndrome. At the time, dialysis was held off because renal function improved with Bumex. No signs of infection during that admission. However, given current situation, patient will require urgent hemodialysis for uremia and will require further management of sepsis secondary to UTI and troponinemia (uremic cardiomyopathy versus NSTEMI I versus II). Past Medical History: as above Family History: Positive Family Respiratory Disorders, Family Cardiac Disorders, Family Cancer and Family Surgery Surgical History: Open heart surgery, TAVR Social History: Denies history of smoking, denies current alcohol use, denies recreational drug use Current Medications: Tylenol 25 mg twice daily, Eliquis 2.5 mg twice daily, Kayexalate, midodrine 5 mg 3 times daily, diltiazem to 40 mg daily, levothyroxine 50 mcg daily, allopurinol 300 mg daily, Flovent HFA, albuterol inhaler, iron 325 twice daily, Bumex 2 mg daily, aspirin 81 mg daily Allergies: Per chart review, penicillin but no drug reaction listed Exam Vital Signs Temp Pulse Resp BP Pulse Ox O2 Del Method O2 Flow Rate 98.3 F 96 18 85/53 L 97 Nasal Cannula 4 03/07/25 11:57 03/07/25 11:55 03/07/25 11:55 03/07/25 11:55 03/07/25 11:55 03/07/25 11:55 03/07/25 11:55 Narrative Exam General: Drowsy, unable to answer questions appropriately. AOx2. Saturating well on 4L NC. HEENT: Normocephalic, atraumatic, mucous membranes dry. Heart: Regular rate and rhythm, normal S1 and S2, 3/5 systolic murmur with click in second right intercostal space. Lungs: Diffuse wheezing. Abdomen: Soft, nondistended, nontender, positive bowel sounds. No guarding or rebound tenderness. Neurologic: Drowsy, oriented x1, 2/5 strength in right lower extremity, 3/5 in left lower. 4/5 strength in upper extremities. Sensation intact. Extremities: 1+ pitting edema in right lower extremity, up to calf. No edema in left lower. Skin: No rash. Some bruising in upper extremities. Results: Labs 03/07/25 09:48 03/07/25 20:16 Labs: Short CBC 03/07/25 Range/Units 09:48 WBC 26.7 H D (3.6-11.0) Thou/mm3 Hgb 9.7 L (12.0-16.0) g/dL Hct 30.5 L (36.0-46.0) % Plt Count 51 L D (140-440) Thou/mm3 BMP 03/07/25 09:48 Sodium 130 L Potassium 4.6 Chloride 94 L Carbon Dioxide 19.6 L BUN 128 H* Creatinine 2.8 H D Glucose 140 H Calcium 8.4 Cardiac Enzymes 03/07/25 Range/Units 09:48 Troponin I 1.766 H* (0.0-0.045) ng/mL Liver Function 03/07/25 Range/Units 09:48 Total Bilirubin 0.6 (0.3-1.2) mg/dL AST 93 H (0-34) U/L ALT 18 (10-49) U/L Alkaline Phosphatase 50 (46-116) U/L Albumin 3.9 (3.4-4.8) gm/dL Urine 03/07/25 Range/Units 09:59 Urine Color Yellow (Lt Yel-Yel) Urine Clarity Turbid A (Clear/Hazy) Urine pH 5.5 (5.0-7.0) Ur Specific Ava 1.011 (1.001-1.035) Urine Protein Trace (Neg - Trace) Urine Glucose (UA) Negative (Negative) Quality Measures Quality Measures VTE prophylaxis Advance care planning discussed with:: patient and child Medications Home Medications and Allergies Home Medications ?Medication ?Instructions ?Recorded ?Confirmed ?Type levothyroxine 50 mcg tablet 50 mcg PO QDAY 10/27/17 03/07/25 History (Synthroid) albuterol sulfate 90 mcg/actuation 2 puff inhalation Q8H PRN SOB 05/28/19 03/07/25 History aerosol inhaler (Ventolin HFA) allopurinol 300 mg tablet 300 mg PO QDAY 05/28/19 03/07/25 History ferrous sulfate 325 mg (65 mg 325 mg PO BID 05/29/19 03/07/25 History iron) tablet (Iron (ferrous sulfate)) aspirin 81 mg tablet 81 mg PO QDAY 03/01/25 03/07/25 History bumetanide 2 mg tablet 2 mg PO DAILY 03/01/25 03/07/25 History diltiazem HCl 240 mg 240 mg PO Q24H 03/01/25 03/07/25 History capsule,extended release 24 hr Allergies Allergy/AdvReac Type Severity Reaction Status Date / Time Penicillins Allergy Unknown Verified 03/01/25 14:30 Visit Medications Acetaminophen (Acetaminophen 325 Mg Tablet) 650 mg PO Q6H PRN PRN Reason: Fever >101.5 and pain 1-3 Stop: 04/06/25 11:37 Allopurinol (Allopurinol 100 Mg Tablet) 300 mg PO QDAY [facility] Stop: 04/07/25 08:59 Atenolol (Atenolol 25 Mg Tablet) 25 mg PO BID [facility] Stop: 04/06/25 20:59 Bumetanide (Bumetanide 0.5 Mg Tablet) 2 mg PO DAILY [facility] Stop: 04/07/25 08:59 Diltiazem HCl (Diltiazem Cd 120 Mg Capcr) 240 mg PO Q24H [facility] Stop: 04/06/25 11:59 Levothyroxine Sodium (Levothyroxine Sodium 25 Mcg Tablet) 50 mcg PO QDAY [facility] Stop: 04/07/25 08:59 Midodrine (Midodrine 5 Mg Tablet) 5 mg PO TID [facility] Stop: 04/06/25 13:59 Midodrine (Midodrine 5 Mg Tablet) 5 mg PO X1 ONE Stop: 03/07/25 11:58 Non-Formulary Medication (Aspirin) 81 mg PO QDAY [facility] Stop: 04/07/25 08:59 Discontinued Medications Acetaminophen (Acetaminophen 325 Mg Tablet) 650 mg PO X1 ONE Stop: 03/07/25 10:55 Last Admin: 03/07/25 11:07 Dose: 650 mg Aspirin (Aspirin 325 Mg Tablet) 325 mg PO X1 ONE Stop: 03/07/25 10:59 Last Admin: 03/07/25 11:07 Dose: 325 mg Atenolol (Atenolol 25 Mg Tablet) 25 mg PO X1 ONE Stop: 03/07/25 10:38 Last Admin: 03/07/25 11:08 Dose: 25 mg Heparin Sodium (Porcine) (Heparin Sod Inj 5000 Unit/Ml Vial) 3,300 unit 60 unit/kg (3300 unit) IV X1 ONE; Protocol Stop: 03/07/25 11:46 Ceftriaxone Sodium/Dextrose (Rocephin/D5w 1gm Iv Premix) 1 gm in 50 mls @ 100 mls/hr IV X1 ONE Stop: 03/07/25 10:20 Last Infusion: 03/07/25 10:53 Dose: Infused Sodium Chloride (Ns) 500 mls @ 999 mls/hr IV .Q31M ONE Stop: 03/07/25 10:23 Last Infusion: 03/07/25 10:54 Dose: Infused Heparin Sodium/Dextrose (Heparin In D5w Ivpb) 25,000 unit in 250 mls @ 6.559 mls/hr IV .Q24H [facility]; Protocol Stop: 03/21/25 10:59 Last Admin: 03/07/25 11:40 Dose: Not Given Non-Formulary Medication (Sodium Polystyrene Sulfonate) 15 gm PO QDAY [facility] Stop: 04/07/25 08:59 Assessment & Plan Plan Patient is a 84 year old Citizen [place] lady who is well-known to Dr. Diaz from her practice with past medical history of bronchial asthma with recurrent episodes of exacerbation, COPD, extensive history of hyperuricemia/gout, aortic stenosis s/p TAVR, A-fib on Eliquis, hypertension, hypothyroidism, and HFpEF (follows Dr. Vasquez), CKD IV who lives along with her sister presented to [facility] with a chief complaint of generalized weakness for the past day. Admitted to telemetry for uremia in setting of FRAN on CKD IV, sepsis secondary to UTI versus PNA, and troponinemia. #AMS- Metabolic encephalopathy 2/2 uremia versus r/o sepsis #Uremia #FRAN on CKD IV from underlying cardiorenal syndrome - Presented with generalized weakness for the past 2 days. On exam AOx 2, very drowsy, unable to answer questions appropriately. Does not appear hypervolemic. -Was recently admitted with FRAN on CKD stage IV discussed hemodialysis but withheld as renal function improved on Bumex. Has underlying CKD from cardiorenal syndrome. - BUN 128, creatinine 2.8 (baseline 1.8-2.3), GFR 16 on admission. - S/p IV bolus 500 cc + 250 cc Plan: - Emergent dialysis today, no ultrafiltration as patient does not appear hypervolemic. Consent obtained from son as patient is altered. - Temporary dialysis catheter will be placed by IR as patient is on Eliquis. Will schedule for permanent tunnel catheter placement at a later time. - Strict INOs - Daily weights - Avoid nephrotoxic agents - Renally dose medications - Avoid aggressive IVF given history of cardiorenal syndrome #Sepsic shock 2/2 UTI versus PNA #Hx UTI - On admission, patient is confused and not answering questions appropriately. AOx2. - BP 108/70, tachycardic with HR 107, RR 20, temperature 101.2, 97% on 4 L nasal cannula. - WBC 26.7. Lactic 2.5. LDH 435. AST mildly elevated 93 however ALT and total bilirubin within normal limits. Troponin 1.766, increased to 5.37. - Meets criteria for septic shock however stable on midodrine - UA shows UTI (2+ bacteria, 39 WBC, positive leukocyte esterase). Previously grew ampicillin-resistant Kleb pneunoniae and pansensitive E coli last year. - CXR also suspicion for early perihilar pneumonia. - S/p 500 cc NS in ED. BP dropped to 75/55, given midodrine 5 x1 and 250 cc bolus, improved to 90/54. Plan: - S/p CFX 1g and Zosyn 2.275g in ED - Continue Zosyn 2.25g q6hr - Increased midodrine to 15 mg TID, keep MAP <65. Will titrate down as tolerated. However, patient is now unable to follow commands, cannot give PO medications. May require ICU upgrade for pressors if MAP persistently <65. - Limited IVF resuscitation due to history of cardiorenal syndrome - Follow up blood and urine cultures #Elevated troponin 2/2 pericarditis versus NSTEMI II - Patient endorsed chest pressure but unable to properly describe at bedside due to drowsiness. - Troponin 1.766 -> 5.37 - EKG shows atrial fibrillation, heart rate 107. Possible mild ST elevations in inferior leads, however no longer visible on repeat EKG. - Suspect pericarditis in setting of uremia versus NSTEMI type II iso of sepsis. - S/p ASA 325 mg x1 Plan: - Dialysis as above - ASA 81 mg daily - Consulted cardiology Dr. Vasquez, appreciate recommendations #Afib with RVR #Hx afib on Eliquis - Follows Dr. Vasquez outpatient. On Eliquis 2.5 mg BID. - EKG shows atrial fibrillation, heart rate 107. Possible Possible mild ST elevations in inferior leads, however no longer visible on repeat EKG. Plan: - Atenolol 25 mg BID - Hold Diltiazem 240 mg today due to hypotension, plan to resume tomorrow if patient requires more rate control - Hold Eliquis 2.5mg BID - Consulted cardiology Dr. Vasquez, appreciate recommendations #Hx HFpEF (EF 50-55%) # s/p TAVR with severe prosthetic valve stenosis - Not hypervolemic on exam - BNP 866, previously 100-200 - CXR shows mild enlargement cardiac contour with pulmonary vascular congestion, also suspicion for early perihilar pneumonia. - Echo 07/19/23 showed EF 50-55%. Mild RV dilatation. Estimate RVSP 46mmHg. Severe biatrial dilatation. Moderate MV stenosis mean gradient 9mmHg. Moderate MAC with Moderate mitral regurgitation. Aortic bioprosthesis lang gradient 22mmHg, vmax 2.9m/s. Peak gradient of 35 mmHg. Modeate tricuspid regurgitation. - On previous admission, per cardiology, aortic stenosis was not severe enough to warrant intervention Plan: - Hold Bumex 2mg daily - Fluid restriction 1800 cc - Consulted glassware finisher Dr. Vasquez, appreciate recommendations #Hypotension - Multifactorial in setting of sepsis versus severe prosthetic Plan; - Midodrine as above - Continue to monitor BP, keep MAP >65 #Hyponatremia, hypovolemic - Appears hypovolemic on exam - Sodium 130 - Likely iatrogenic (Bumex at home) Plan: - Hold Bumex - Gentle resuscitation with NS - Follow up AM renal panel #Metabolic acidosis #Lactic acidosis, likely type A - Anion gap 16, bicarb 19.6 - Likely secondary to lactic acidosis in setting of septic shock - S/p IV NS 500 x1, 250 cc x1, LR 500 cc x1 Plan: - Gentle resuscitation with NS #Hypothyroidism - Home med includes levothyroxine 50 mg daily Plan: - Hold levothyroxine #Diabetes Type 2 - A1c 5.8. LDL 79. - Recall that she was taking glipizide in the past but not currently on any medication. Plan: - NPO as patient unable to follow commands - Renal/low carb consistent when able to tolerate PO #Gout - Hold allopurinol #Anemia, macrocytic - MCV 101 - Folate and B12 within normal limits on 03/03 - Possibly secondary to hypothyroidism Plan: - Follow up reticulocyte count - Follow up AM TSH Health Maintenance Disposition: telemetry DVT prophylaxis: heparin drip GI prophylaxis: none Diet: renal, carb consistent low CODE STATUS: FULL Patient plan of care was discussed with the attending physician, Dr. Diza. Marisel Villavicencio DO, PGY-1 Attending Provider Attestation/Addendum Patient seen and examined with resident physician Dr. Villavicencio. Note reviewed, agree with findings and recommendations. FRAN-secondary to prerenal azotemia/ischemic ATN in the setting of cardiorenal syndrome needing diuretics and recurrent hospitalizations. Did discuss dialysis last visit however patient's BUN and creatinine improved and dialysis was held. Now with BUN and creatinine were significantly elevated and decided to proceed with dialysis. Sepsis with leukocytosis-UTI versus pneumonia Altered mental status from metabolic encephalopathy Non-ST elevation MT with peak troponin of 5.2-spoke to Dr. Hartley-decided to hold heparin due to her low platelets and give aspirin. However if troponin continues to be elevated will start heparin drip. A-fib- Eliquis on hold. Rate seems to be better Anion gap metabolic acidosis from lactic acidosis/FRAN Electrolyte imbalance Elevated LFTs-probably related to underlying sepsis/shock liver Emergency dialysis ordered for shortness of breath, AMS with severe azotemia. Vas-Cath placed by IR. Hemodialysis for 2 hours, 2K, ultrafiltration 0 L, Epogen 6000, no heparin ordered. Plan of care discussed with the dialysis nurse. Please see dialysis flowsheet for further details. Patient seems to have multisystem organ failure with a poor prognosis. Spoke to son-[place], was requesting all aggressive measures including dialysis. CODE STATUS remains full code for now per son. Hospitalist team will be covering overnight. Did talk to Dr. Hartley at length.
[2025-03-07] MEDS: MIDODRINE 5 MG TABLET PO (12:04)
[2025-03-07] MEDS: SODIUM CHLORIDE 0.9% 250 ML 250 ML 999 ML IV (12:18)
[2025-03-07] MEDS: PIPER/TAZO 2.25 GM 2.25 GM/50 ML BAG IV (12:30)
--- NOTE | 2025-03-07 12:31 | PC.NURSE ---
spoke with janneth koenig about giving zosyn with penicillin allergy said okay to give
[2025-03-07 12:52] LABS: Troponin I 5.357 ng/mL (0.0-0.045)
[2025-03-07 12:58] LABS: Reflex Lactate? Y
--- NOTE | 2025-03-07 13:19 | PC.NURSE ---
spoke with dr cervantes about giving herparin with plalets of 51 stated okay to start
--- NOTE | 2025-03-07 13:28 | PC.NURSE ---
patient taken to IR at this time
[2025-03-07] MEDS: LIDOCAINE INJ PF 1% 30 ML VIAL INFL (14:08)
[2025-03-07] MEDS: HEPARIN SOD LOCK SYR 100 UNIT/ML 500 UNIT STFIELD (14:08)
--- NOTE | 2025-03-07 14:50 | PC.NURSE ---
patient brought back from IR called Dr cervantes to see if they wanted me to start heparin without bolus. dr cervantes said she lisa call me back
--- NOTE | 2025-03-07 14:52 | PC.NURSE ---
patient taken to dialysis
--- NOTE | 2025-03-07 15:14 | PC.NURSE ---
called dr levy x2 no answer will attempt to call again at a later time
--- NOTE | 2025-03-07 15:31 | PC.NURSE ---
spoke with dr levy via telephone stated shes going to hold off on the heparin drip at this time and not to start it
[2025-03-07 16:07] LABS: Lactic Acid, 3 HR 2.3 mMol/L (0.4-2.0)
--- NOTE | 2025-03-07 16:55 | ESCONSULT_ITS ---
<Statement entered by Sergio Vasquez MD - 03/12/25 17:41> So I personally examined evaluated this patient who was just discharged home after hospitalization for A-fib RVR and CKD with fluid retention but discharged home 2 days ago came back to the hospital again with severe shortness breath fever and appears to have a urinary tract infection urosepsis appears to be in septic shock with sepsis and A-fib RVR patient also had troponin elevation which I am not concerned as this is significant in that patient has severe sepsis elevated troponin type II troponin possibly type II myocardial infarction which is a poor prognosis implication of poor prognosis because of sepsis. Patient will be continued on medical management vasopressors Levophed will be given if she becomes hypotensive she is physical in the intensive care unit but possibly will require acute intensive level of care later on as she is not doing that well. Patient has aortic valve replaced surgically in 2016 now has moderate stenosis but not critical and has CKD stage IV. Patient's multisystem disease prognosis poor evaluated patient with resident physician and team discussed treatment plan recommendation for now we will treat this as a type II myocardial infarction not to use anticoagulation IV heparin unless situation changes will also review cardiac echo will be repeated patient did preserved ejection fraction before but I am suspecting patient may have stress related cardiomyopathy with due to sepsis discussed with the family in detail as to poor prognosis. HPI Data of Consult Requesting Physician: Yessy Diaz MD Admitting Provider: Yessy Diaz MD Attending Provider: Yessy Diaz MD Primary Care Provider: Yessy Diaz MD Consult Narrative Reason for consult: Elevated troponins, A-fib History of present illness: Patient is 84-year-old female past medical history bronchial asthma with recurrent episodes of exacerbation, COPD, extensive history of hyperuricemia/gout, aortic stenosis s/p TAVR, A-fib on Eliquis, hypertension, hypothyroidism, and HFpEF (follows Dr. Vasquez), CKD IV who lives with her sister presented to [facility] with a chief complaint of generalized weakness for the past day. Unable to obtain proper history due to her mentation at this time. Significantly drowsy but arousable to sternal rub. Per son, patient was experiencing chills night after discharge with new nonproductive cough and worsening shortness of breath, was requiring 4L oxygen at home during the day (usually saturates at 2L overnight). Also became increasingly weak, unable to transfer herself to chair. Denied sick contacts at home. Last took all her home medications last night, including new Kayexelate. She was recently discharged from hospital on 03/05 after being treated for new onset A-fib RVR. Patient was discharged with Eliquis 2.5 twice daily, atenolol 25 twice daily, Bumex 2 daily, diltiazem 240 daily. Echo on 03/02/2025 showed LV normal size, systolic function normal. EF 50-55%, mild concentric hypertrophy. RVSP 60 with RAP 15, severe PAH. Aortic bioprosthesis mean 21 mmHg, v max 3.3 m/s. There is trace aortic valve bioprosthesis regurgitation. Moderate MAC severe 3+mitral regurgitation. Moderate mitral valve stenosis mean PG 16 mmHg, V max 2.1 m/s. In ED, patient complaining of chest pressure and pain however she is also very confused and not answering questions appropriately. AOx2. BP 108/70, tachycardic with HR 107, RR 20, temperature 101.2, 97% on 4 L nasal cannula. WBC 26.7, hemoglobin 9.7 (at baseline), platelets 51,000. Sodium 130, potassium 4.6, chloride 94, bicarb 19.6. BUN 128, creatinine 2.8 (baseline 1.8-2.3), GFR 16. Phosphorus 5.2, magnesium 2.0. AST mildly elevated 93 however ALT and total bilirubin within normal limits. Lactic 2.5. LDH 435. Troponin 1.766, increased to 5.37. BNP 866. UA shows UTI (2+ bacteria, 39 WBC, positive leukocyte esterase) EKG shows atrial fibrillation, heart rate 107. Possible Possible mild ST elevations in inferior leads, however no longer visible on repeat EKG. CXR shows mild enlargement cardiac contour with pulmonary vascular congestion, also suspicion for early perihilar pneumonia. Given CFX 1 g, NS 500 bolus, Tylenol 650 mg, ASA 325 mg, atenolol 25 mg. Later given midodrine 15 mg, NS 250 bolus, Zosyn 2.25 g, and started on heparin drip Cardiology consulted for elevated troponins, most likely NSTEMI type II demand ischemia in setting of worsening renal failure. Resume atenolol and diltiazem. Continue to trend troponins and monitor symptoms. Will resume inpatient dialysis. Of note, patient son was at bedside. Cardiology team had goals of care discussion. Due to rapid decline and uptrending troponins, patient does have poor prognosis. She is not good candidate for undergoing angiogram to evaluate for any stenosis. Son stated that he will discuss with family about changing code status to DNR. cc:: cc: Yessy Diaz MD Review of Systems Review of Systems ROS Unobtainable: unobtainable due to mental status Exam Vital Signs Temp Pulse Resp BP Pulse Ox O2 Del Method O2 Flow Rate 96.8 F 108 H 18 115/56 L 90 L Nasal Cannula 4 03/07/25 15:13 03/07/25 16:45 03/07/25 15:13 03/07/25 16:45 03/07/25 15:13 03/07/25 14:16 03/07/25 14:16 FiO2 4 03/07/25 15:13 Narrative Exam General: Awake and in no acute distress. Drowsy, unable to answer questions appropriately. AOx2. Saturating well on 4L NC. HEENT: Normocephalic, atraumatic, mucous membranes dry. Heart: Regular rate and rhythm, normal S1 and S2, 3/5 systolic murmur with click in second right intercostal space. Lungs: Diffuse wheezing. Abdomen: Soft, nondistended, nontender, positive bowel sounds. No guarding or rebound tenderness. Neurologic: Alert and oriented x2, no gross neurological deficit, and patient able to move all 4 extremities. 2/5 strength in right lower extremity, 3/5 in left lower. 4/5 strength in upper extremities. Sensation intact. Extremities: 1+ pitting edema in right lower extremity, up to calf. No edema in left lower. Skin: No rash. Some bruising in upper extremities. Results Labs 03/07/25 09:48 03/07/25 09:48 Labs: Short CBC 03/07/25 Range/Units 09:48 WBC 26.7 H D (3.6-11.0) Thou/mm3 Hgb 9.7 L (12.0-16.0) g/dL Hct 30.5 L (36.0-46.0) % Plt Count 51 L D (140-440) Thou/mm3 BMP 03/07/25 09:48 Sodium 130 L Potassium 4.6 Chloride 94 L Carbon Dioxide 19.6 L BUN 128 H* Creatinine 2.8 H D Glucose 140 H Calcium 8.4 Cardiac Enzymes 03/07/25 03/07/25 Range/Units 09:48 11:43 Troponin I 1.766 H* 5.357 H* D (0.0-0.045) ng/mL Liver Function 03/07/25 Range/Units 09:48 Total Bilirubin 0.6 (0.3-1.2) mg/dL AST 93 H (0-34) U/L ALT 18 (10-49) U/L Alkaline Phosphatase 50 (46-116) U/L Albumin 3.9 (3.4-4.8) gm/dL Urine 03/07/25 Range/Units 09:59 Urine Color Yellow (Lt Yel-Yel) Urine Clarity Turbid A (Clear/Hazy) Urine pH 5.5 (5.0-7.0) Ur Specific [place] 1.011 (1.001-1.035) Urine Protein Trace (Neg - Trace) Urine Glucose (UA) Negative (Negative) Quality Measures Quality Measures none Advance care planning discussed with:: child Medications Home Medications and Allergies Home Medications ?Medication ?Instructions ?Recorded ?Confirmed ?Type levothyroxine 50 mcg tablet 50 mcg PO QDAY 10/27/17 History (Synthroid) albuterol sulfate 90 mcg/actuation 2 puff inhalation Q 8H PRN SOB 05/28/19 03/07/25 History aerosol inhaler (Ventolin HFA) allopurinol 300 mg tablet 300 mg PO QDAY 05/28/1902/21 History ferrous sulfate 325 mg (65 mg 325 mg PO BID 05/29/19 1 05/08/24 History iron) tablet (Iron (ferrous sulfate)) aspirin 81 mg tablet 81 mg PO QDAY 03/01/2503/07 History bumetanide 2 mg tablet 2 mg PO DAILY 03/01/2503/07 History diltiazem HCl 240 mg 240 mg PO Q24H 03/01/2502/21 History capsule,extended release 24 hr Allergies Allergy/AdvReac Type Severity Reaction Status Date / Time Penicillins Allergy Unknown Verified 03/01/25 14:30 Visit Medications Acetaminophen (Acetaminophen 325 Mg Tablet) 650 mg PO Q6H PRN PRN Reason: Fever >101.5 and pain 1-3 Stop: 04/06/25 11:37 Allopurinol (Allopurinol 100 Mg Tablet) 300 mg PO QDAY [facility] Stop: 04/07/25 08:59 Aspirin (Aspirin Ec 81 Mg Tabec) 81 mg PO QDAY [facility] Stop: 04/07/25 08:59 Atenolol (Atenolol 25 Mg Tablet) 25 mg PO BID [facility] Stop: 04/06/25 20:59 Diltiazem HCl (Diltiazem Cd 120 Mg Capcr) 240 mg PO Q24H [facility] On Hold: 03/07/25 13:14 Resume: 03/08/25 09:00 Stop: 04/06/25 11:59 Heparin Sodium (Porcine) (Heparin Sod Inj 1000 Unit/Ml Vial 10 Ml) 2,700 unit INDWELLCAT PRN PRN PRN Reason: DIALYSIS Stop: 03/21/25 16:48 Heparin Sodium/Dextrose (Heparin In D5w Ivpb) 25,000 unit in 250 mls @ 6.559 mls/hr IV .Q24H [facility]; Protocol Stop: 03/21/25 13:14 Albumin Human (Albuminex 25% Ivpb) 25 gm in 100 mls @ 0 mls/hr IV Q30MIN PRN PRN Reason: To maintain SBP>90 Ceftriaxone Sodium/Dextrose (Rocephin/D5w 1gm Iv Premix) 1 gm in 50 mls @ 100 mls/hr IV QDAY [facility] Stop: 03/15/25 08:59 Piperacillin Sod/Tazobactam (Sod 4.5 gm/ Sodium Chloride) 100 mls @ 200 mls/hr IV Q12HR [facility]; Protocol Stop: 03/15/25 08:59 Levothyroxine Sodium (Levothyroxine Sodium 25 Mcg Tablet) 50 mcg PO QDAY [facility] Stop: 04/07/25 08:59 Midodrine (Midodrine 5 Mg Tablet) 15 mg PO TID [facility] Stop: 04/06/25 21:59 Discontinued Medications Acetaminophen (Acetaminophen 325 Mg Tablet) 650 mg PO X1 ONE Stop: 03/07/25 10:55 Last Admin: 03/07/25 11:07 Dose: 650 mg Aspirin (Aspirin 325 Mg Tablet) 325 mg PO X1 ONE Stop: 03/07/25 10:59 Last Admin: 03/07/25 11:07 Dose: 325 mg Atenolol (Atenolol 25 Mg Tablet) 25 mg PO X1 ONE Stop: 03/07/25 10:38 Last Admin: 03/07/25 11:08 Dose: 25 mg Bumetanide (Bumetanide 0.5 Mg Tablet) 2 mg PO DAILY [facility] Stop: 04/07/25 08:59 Epoetin Jax (Epoetin Jax-Epbx Inj 10,000 Unit/Ml Vial (Esrd)) 10,000 unit SC X1 ONE Stop: 03/07/25 12:58 Heparin Sodium (Beef Lung) (Heparin Sod Lock Syr 100 Unit/Ml) [facility] X[facility] Stop: 03/07/25 14:07 Last Admin: 03/07/25 14:08 Dose: 500 unit Heparin Sodium (Porcine) (Heparin Sod Inj 5000 Unit/Ml Vial) 3,300 unit 60 unit/kg (3300 unit) IV X1 ONE; Protocol Stop: 03/07/25 11:46 Heparin Sodium (Porcine) (Heparin Sod Inj 5000 Unit/Ml Vial) 1,650 unit 30 unit/kg (1650 unit) IV X1 ONE; Protocol Stop: 03/07/25 14:49 Ceftriaxone Sodium/Dextrose (Rocephin/D5w 1gm Iv Premix) 1 gm in 50 mls @ 100 mls/hr IV X1 ONE Stop: 03/07/25 10:20 Last Infusion: 03/07/25 10:53 Dose: Infused Sodium Chloride (Ns) 500 mls @ 999 mls/hr IV .Q31M ONE Stop: 03/07/25 10:23 Last Infusion: 03/07/25 10:54 Dose: Infused Heparin Sodium/Dextrose (Heparin In D5w Ivpb) 25,000 unit in 250 mls @ 6.559 mls/hr IV .Q24H [facility]; Protocol Stop: 03/21/25 10:59 Last Admin: 03/07/25 11:40 Dose: Not Given Sodium Chloride (Ns) 250 mls @ 999 mls/hr IV .Q16M ONE Stop: 03/07/25 12:21 Last Infusion: 03/07/25 12:34 Dose: Infused Piperacillin/Tazobactam/Dextrose (Zosyn) 2.25 gm in 50 mls @ 100 mls/hr IV X1 ONE; Protocol Stop: 03/07/25 12:39 Last Infusion: 03/07/25 13:00 Dose: Infused Lidocaine HCl (Lidocaine Inj Pf 1% 30 Ml Vial) 30 ml INFL X1 ONE Stop: 03/07/25 14:07 Last Admin: 03/07/25 14:08 Dose: 30 ml Midodrine (Midodrine 5 Mg Tablet) 5 mg PO TID [facility] Stop: 04/06/25 21:59 Midodrine (Midodrine 5 Mg Tablet) 5 mg PO X1 ONE Stop: 03/07/25 11:58 Last Admin: 03/07/25 12:04 Dose: 5 mg Midodrine (Midodrine 5 Mg Tablet) 10 mg PO X1 ONE Stop: 03/07/25 13:14 Non-Formulary Medication (Sodium Polystyrene Sulfonate) 15 gm PO QDAY [facility] Stop: 04/07/25 08:59 Assessment & Plan Plan Patient is a 84 year old [place] lady who is well-known to Dr. Diaz from her practice with past medical history of bronchial asthma with recurrent episodes of exacerbation, COPD, extensive history of hyperuricemia/gout, aortic stenosis s/p TAVR, A-fib on Eliquis, hypertension, hypothyroidism, and HFpEF (follows Dr. Vasquez), CKD IV who lives along with her sister presented to [facility] with a chief complaint of generalized weakness for the past day. Admitted to telemetry for uremia in setting of FRAN on CKD IV, sepsis secondary to UTI versus PNA, and troponinemia. #NSTEMI II, demand ischemia vs #Uremic pericarditis Patient endorsed chest pressure but unable to properly describe at bedside due to drowsiness. Troponin 1.766 -> 5.37 EKG shows atrial fibrillation, heart rate 107. Possible mild ST elevations in inferior leads, however no longer visible on repeat EKG. Suspect pericarditis in setting of uremia however given uptrend in troponin and unclear history, there is still concern for NSTEMI I versus type II iso of sepsis. S/p ASA 325 mg x1 and heparin bolus - Resume inpatient dialysis - continue Eliquis 2.5 BID - Trend troponin q6hr #Afib, rate controlled #Hx afib on Eliquis Follows Dr. Vasquez outpatient. On Eliquis 2.5 mg BID. EKG shows atrial fibrillation, heart rate 107. Possible Possible mild ST elevations in inferior leads, however no longer visible on repeat EKG. -continue Atenolol 25 mg BID - Hold Diltiazem 240 mg today due to hypotension, plan to resume tomorrow if patient requires more rate control - continue Eliquis 2.5mg BID #Hx HFpEF (EF 50-55%) # s/p TAVR with severe prosthetic valve stenosis Echo on 03/02/2025 showed LV normal size, systolic function normal. EF 50-55%, mild concentric hypertrophy. RVSP 60 with RAP 15, severe PAH. Aortic bioprosthesis mean 21 mmHg, v max 3.3 m/s. There is trace aortic valve bioprosthesis regurgitation. Moderate MAC severe 3+mitral regurgitation. Moderate mitral valve stenosis mean PG 16 mmHg, V max 2.1 m/s. Not hypervolemic on exam BNP 866, previously 100-200 CXR shows mild enlargement cardiac contour with pulmonary vascular congestion, also suspicion for early perihilar pneumonia. - Hold Bumex 2mg daily - Fluid restriction 1800 cc -continue to monitor for changes #Metabolic encephalopathy 2/2 uremia versus sepsis #Uremia #FRAN on CKD IV from underlying cardiorenal syndrome #Sepsic shock 2/2 UTI versus PNA #Hx UTI #Hypotension #Hypothyroidism #Diabetes Type 2 #Hx bronchial asthma with recurrent episodes of exacerbation #COPD #Gout #Anemia, macrocytic Primary care team to manage above conditions and ongoing care needs. The patient's management plan was discussed with my attending physician Dr. Vasquez. Queenie Cleaning, PGY-2
--- NOTE | 2025-03-07 17:06 | PC.NURSE ---
report called to leonid thornton via telphone then spoke to ronald dialysis nurse to take patient over after dialysis was finished
[2025-03-07] MEDS: HEPARIN SOD INJ 1000 UNIT/ML VIAL 10 ML 2700 UNIT INDWELLCAT (17:56)
[2025-03-07] MEDS: RINGERS LACTATED 500 ML 500 ML 999 ML IV (18:18)
[2025-03-07] MEDS: PIPERACILLIN/TAZO 2.25GM INJ 2.25 GM in SODIUM CHLORIDE 0.9% (Popper) 50 ML IV (20:03)
--- NOTE | 2025-03-07 20:03 | XR_ITS ---
EXAMINATION: AP chest single view TECHNIQUE: AP portable semiupright chest single view Date and time: March 07, [id number] hours, comparison March 07, 2025 11:42 a.m. INDICATION: Shortness of breath today. FINDINGS: Mild CHF Mild enlargement cardiac contour Prosthetic aortic valve Vascular congestion and perihilar edema Right internal jugular dialysis catheter tip satisfactory position Orogastric tube in the stomach IMPRESSION: Mild CHF Right internal jugular dialysis catheter tip satisfactory position
[2025-03-07 20:27] LABS: Base Excess, Venous -4 (-3-3); O2 Saturation, Venous 72 % (96-97); PCO2, Venous 43 mmHg (36-56); PO2, Venous 42 mmHg (15-58); pH, Venous 7.32 (7.33-7.66)
[2025-03-07 20:31] LABS: Lactate (Lactic Acid) 4.1 mMol/L (0.4-2.0)
[2025-03-07 20:52] LABS: Alanine Aminotransferase 80 U/L (10-49); Albumin, Serum 3.9 gm/dL (3.4-4.8); Albumin/Globulin Ratio 1.6 (1.2-2.2); Alkaline Phosphatase 48 U/L (46-116); Anion Gap 17 (7-16); Aspartate Amino Transferase 147 U/L (0-34); BUN/Creatinine Ratio 32 Ratio (12-20); Bilirubin,Total 0.9 mg/dL (0.3-1.2); Blood Urea Nitrogen 68 mg/dL (9-23); Calcium 8.3 mg/dL (8.3-10.6); Calcium (Corrected) 8.4 mg/dL (8.5-10.1); Carbon Dioxide 20.5 mMol/L (20.0-31.0); Chloride 98 mMol/L (98-107); Creatinine (Component) 2.1 mg/dL (0.6-1.3); Globulin 2.5 gm/dL (2.3-3.5); Glucose 123 mg/dL (74-106); Osmolality,Calculated 290 (275-295); Potassium 3.5 mMol/L (3.4-5.1); Sodium 135 mMol/L (136-145); Total Protein 6.4 gm/dL (5.7-8.2); eGFR 23 See Note
[2025-03-07 20:54] LABS: Troponin I 10.421 ng/mL (0.0-0.045)
[2025-03-07] MEDS: Norepinephrine/D5W 8mg/250ml 8 MG/250 ML BAG 5.124 MG IV (21:04)
--- NOTE | 2025-03-07 21:33 | ECHO_ITS ---
Patient Info Name: Tessa Washington Age: 84 years : 1940 Gender: Female Ht: 157 cm Wt: 54 kg BSA: 1.55 m2 BP: 107 / 63 mmHg HR: 86 bpm Exam Date: 03/08/2025 6:32 AM Admit Date: 03/07/2025 Site: [facility] Room Number: [id number] Patient Status: I Exam Type: CA echo doppler complete [employer] Attendant: Jesusita Ng Ordering Physician: Zaid Carson Study Info Indications shock - Primary Location: S2SX Left Ventricular Outflow Tract Name Value Normal LVOT 2D LVOT Diameter 1.8 cm LVOT Doppler LVOT Peak Velocity 46 cm/s LVOT Mean Gradient 0 mmHg LVOT VTI 10 cm LVOT VTI/AV VTI Ratio 0.1 LVOT Stroke Volume 26 ml Pulmonic Valve Name Value Normal PV Doppler PV Peak Velocity 155 cm/s PV Regurgitation Doppler WY Peak End Diastolic Velocity 153 cm/s Mitral Valve Name Value Normal MV Doppler MV Mean Gradient 4 mmHg MV PHT 60 ms MV Area (PHT) 3.6 cm2 4.0-5.0 MV Area (Cont Eq VTI) 0.7 cm2 MV Annular TDI MV Lateral e' Velocity 5.1 cm/s Tricuspid Valve Name Value Normal TV Regurgitation Doppler TR Peak Velocity 299 cm/s Estimated PAP/RSVP RA Pressure 15 mmHg <=5 PA Systolic Pressure 63 mmHg <36 RV Systolic Pressure 51 mmHg <36 TV Annular TDI TV Lateral Isabel s' Velocity 5.9 cm/s >=9.5 Aortic Valve Name Value Normal AV 2D/MM AV Cusp Sep (MM) 0.9 cm AV Doppler AV Peak Velocity 317 cm/s AV Mean Gradient 29 mmHg AV VTI 69 cm AV Area (Cont Eq VTI) 0.4 cm2 >=3.0 AV Area (Cont Eq Harlan) 0.4 cm2 AV DI (Harlan) 0.15 AV Regurgitation 2D LVOT Area 2.5 cm2 Ventricles Name Value Normal LV Dimensions 2D/MM IVS Diastolic Thickness (2D) 1.1 cm 0.6-0.9 LVID Diastole (2D) 5.1 cm 3.8-5.2 LVIW Diastolic Thickness (2D) 1.3 cm 0.6-0.9 LVID Systole (2D) 4.6 cm 2.2-3.5 LVOT Diameter 1.8 cm LV Mass (2D Cubed) 241.23 g 67.00-162.00 LV Mass Index (2D Cubed) 156 g/m2 43-95 Relative Wall Thickness (2D) 0.51 <=0.42 IVS/LVIW Diastolic Thickness (2D) 0.85 0.00-1.50 LV Fractional Shortening/Ejection Fraction 2D/MM LV Fractional Shortening (2D) 10 % 27-45 LV EF (2D Teichholz) 21 % RV Dimensions 2D/MM TV Lateral Isabel s' Velocity 5.9 cm/s >=9.5 Atria Name Value Normal LA Dimensions LA Volume (4C A-L) 65 ml Wall Motion Scoring Left Ventricle Left ventricular chamber dimension is normal. Left ventricular systolic function is severely reduced with visually estimated ejection fraction of 30-35%. There is mild concentric hypertrophy noted in the left ventricle. Left ventricular segmental wall motion is normal. There is grade III diastolic dysfunction in the left ventricle. Right Ventricle Right ventricular chamber dimension is mildly enlarged. Right ventricular systolic function is reduced. Left Atrium Left atrial chamber dimension is severely enlarged. Right Atrium Right atrial chamber dimension is severely enlarged. Aortic Valve The aortic valve is trileaflet. There is no aortic valve sclerosis. There is moderate aortic valve stenosis with a peak velocity of 317 cm/s, mean gradient of 29 mmHg, and aortic valve area of 0.4 cm2. There is no aortic valve regurgitation. Pulmonic Valve The pulmonic valve is normal. There is no pulmonic valve stenosis. There is moderate pulmonic regurgitation. Mitral Valve The mitral valve has a calcified annulus. There is no mitral valve stenosis. There is moderate to severe mitral valve regurgitation. Tricuspid Valve The tricuspid valve leaflets are normal. There is no tricuspid valve stenosis. There is moderate to severe tricuspid valve regurgitation. Pulmonary hypertension, estimated pulmonary arterial systolic pressure is 63 mmHg and systemic blood pressure of 107 mmHg in systole. Pericardium/Pleural The pericardium appears normal. There is no pericardial effusion. No pleural effusion visualized. Inferior Vena Cava Dilated inferior vena cava with >50% collapse upon inspiration consistent with normal right atrial pressure, 15 mmHg. Aorta The aortic measurements are indexed to age and body surface area. The aortic root at the sinus of Valsalva is not well visualized. The prox ascending aorta is not well visualized. Summary 1. Left ventricle size is normal and systolic function is severely reduced. Estimated ejection fraction is 30-35%. There is grade III diastolic dysfunction. There is mild concentric hypertrophy noted. 2. Right ventricle chamber size is mildly enlarged and systolic function is normal. Estimated RVSP is 63mmHg, RAP 15. Severe HTN, 3. D-shape ventricular septum in mid to late systole consistent with right ventricular volume overload. 4. Moderate MAC severe mitral regurgitation, moderate mitral valve stenosis mean PG 4mmHG, Vmax 2.1m/s. 5. Aortic bioprosthesis mean 29mmHg, V-max 3.1m/s. There is trace aortic valve bioprosthesis regurgitation. 6. There is moderate to severe tricuspid valve regurgitation. 7. moderate pulmonic valve regurgitation. 8. The left atrium is severely enlarged. The right atrium is severely enlarged. 9. Dilated IVC measuring 2.4cm with estimated RA pressure 15 mmHg. Report Signatures Finalized by Sergio Vasquez on 03/09/2025 04:12 PM
--- NOTE | 2025-03-07 21:33 | PD.RESCONSUL ---
HPI Data of Consult Requesting Physician: Yessy Diaz MD Admitting Provider: Yessy Diaz MD Attending Provider: Yessy Diaz MD Primary Care Provider: Yessy Diaz MD Consult Narrative Reason for consult: shock History of present illness: Ms. Washington is a 84 year old [place] lady who is well-known to Dr. Diaz from her practice with past medical history of bronchial asthma with recurrent episodes of exacerbation, COPD, extensive history of hyperuricemia/gout, aortic stenosis s/p TAVR, A-fib on Eliquis, hypertension, hypothyroidism, and HFpEF (follows Dr. Vasquez), CKD IV who presented to [facility] with a chief complaint of generalized weakness for the past day. Patient is a poor historian and most of history obtained from chart review and patient's family. In addition to the generalized weakness, patient was also experiencing chills, nonproductive cough, worsening SOB, and requiring increased O2 requirements from her baseline 2L HS to 4L. Last took all her home medications last night, including new Kayexelate. ED course:BP 108/70, tachycardic with HR 107, RR 20, temperature 101.2, 97% on 4 L nasal cannula. WBC 26.7, hemoglobin 9.7 (at baseline), platelets 51,000. Sodium 130, potassium 4.6, chloride 94, bicarb 19.6. BUN 128, creatinine 2.8 (baseline 1.8-2.3), GFR 16. Phosphorus 5.2, magnesium 2.0. AST mildly elevated 93 however ALT and total bilirubin within normal limits. Lactic 2.5. LDH 435. Troponin 1.766, increased to 5.37. BNP 866. UA shows UTI (2+ bacteria, 39 WBC, positive leukocyte esterase) EKG shows atrial fibrillation, heart rate 107. Possible mild ST elevations in inferior leads, however no longer visible on repeat EKG. CXR shows mild enlargement cardiac contour with pulmonary vascular congestion, also suspicion for early perihilar pneumonia. Given CFX 1 g, NS 500 bolus, Tylenol 650 mg, ASA 325 mg, atenolol 25 mg. Later given midodrine 15 mg, NS 250 bolus, Zosyn 2.25 g, and started on heparin drip. Patient was just previously admitted from 03/01 to 03/05/25 for acute hyperkalemia in setting of A-fib with RVR and fluid overload secondary to cardiorenal syndrome. At the time, dialysis was held off because renal function improved with Bumex. No signs of infection during that admission. However, given patient's acute renal failure, patient received a temporary dialysis catheter with IR today and had dialysis today, but no fluid was removed. Patient initially admitted to [facility] 03/06/25 for sepsis secondary to UTI and troponinemia (uremic cardiomyopathy versus NSTEMI I versus II). Past Medical History: as above Family History: Positive Family Respiratory Disorders, Family Cardiac Disorders, Family Cancer and Family Surgery Surgical History: Open heart surgery, TAVR Social History: Denies history of smoking, denies current alcohol use, denies recreational drug use Current Medications: Tylenol 25 mg twice daily, Eliquis 2.5 mg twice daily, Kayexalate, midodrine 5 mg 3 times daily, diltiazem to 40 mg daily, levothyroxine 50 mcg daily, allopurinol 300 mg daily, Flovent HFA, albuterol inhaler, iron 325 twice daily, Bumex 2 mg daily, aspirin 81 mg daily Allergies: Per chart review, penicillin but no drug reaction listed Patient was later upgraded to ICU for septic shock. Patient's bedside IVC was not collapsible, and very plethoric at about 3cm, and at this point is not fluid responsive. Patient also received 15mg midodrine, and MAP is still not at goal > 65. cc:: cc: Yessy Diaz MD Review of Systems Review of Systems ROS Unobtainable: unobtainable due to mental status Exam Vital Signs Temp Pulse Resp BP Pulse Ox O2 Del Method O2 Flow Rate 98.2 F 86 19 77/49 L 97 Nasal Cannula 2 03/07/25 17:37 03/07/25 21:04 03/07/25 17:37 03/07/25 21:04 03/07/25 17:37 03/07/25 17:37 03/07/25 17:37 FiO2 4 03/07/25 15:13 Narrative Exam General: Lethargic, unable to answer questions appropriately. A&O x 0. Saturating well on 2L NC. HEENT: Normocephalic, atraumatic, mucous membranes dry. Heart: Irreguarly, irregular, normal S1 and S2, 3/5 systolic murmur with click in second right intercostal space. Lungs: CTAB. Abdomen: Soft, nondistended, nontender, positive bowel sounds. No guarding or rebound tenderness. Neurologic: Alert and oriented x0, patient able to move all 4 extremities. 2/5 strength in right lower extremity, 3/5 in left lower. 4/5 strength in upper extremities. Extremities: 1+ pitting edema in right lower extremity, up to calf. No edema in left lower leg. Skin: No rash. Some bruising in upper extremities. Results Labs 03/08/25 04:41 03/08/25 04:41 Labs: Short CBC 03/07/25 Range/Units 09:48 WBC 26.7 H D (3.6-11.0) Thou/mm3 Hgb 9.7 L (12.0-16.0) g/dL Hct 30.5 L (36.0-46.0) % Plt Count 51 L D (140-440) Thou/mm3 BMP 03/07/25 03/07/25 09:48 20:16 Sodium 130 L 135 L Potassium 4.6 3.5 D Chloride 94 L 98 Carbon Dioxide 19.6 L 20.5 BUN 128 H* 68 H Creatinine 2.8 H D 2.1 H D Glucose 140 H 123 H Calcium 8.4 8.3 Cardiac Enzymes 03/07/25 03/07/25 03/07/25 Range/Units 09:48 11:43 20:16 Troponin I 1.766 H* 5.357 H* D 10.421 H* D (0.0-0.045) ng/mL Liver Function 03/07/25 03/07/25 Range/Units 09:48 20:16 Total Bilirubin 0.6 0.9 (0.3-1.2) mg/dL AST 93 H 147 H (0-34) U/L ALT 18 80 H (10-49) U/L Alkaline Phosphatase 50 48 (46-116) U/L Albumin 3.9 3.9 (3.4-4.8) gm/dL Urine 03/07/25 Range/Units 09:59 Urine Color Yellow (Lt Yel-Yel) Urine Clarity Turbid A (Clear/Hazy) Urine pH 5.5 (5.0-7.0) Ur Specific [place] 1.011 (1.001-1.035) Urine Protein Trace (Neg - Trace) Urine Glucose (UA) Negative (Negative) ABG Interpretation ABG results: 03/07/25 20:16 VBG pH 7.32 L VBG pCO2 43 VBG pO2 42 VBG Base Excess -4 L Quality Measures Quality Measures VTE prophylaxis Advance care planning discussed with:: patient Medications Home Medications and Allergies Home Medications ?Medication ?Instructions ?Recorded ?Confirmed ?Type levothyroxine 50 mcg tablet 50 mcg PO QDAY 10/27/17 03/07/25 History (Synthroid) albuterol sulfate 90 mcg/actuation 2 puff inhalation Q8H PRN SOB 05/28/19 03/07/25 History aerosol inhaler (Ventolin HFA) allopurinol 300 mg tablet 300 mg PO QDAY 05/28/19 03/07/25 History ferrous sulfate 325 mg (65 mg 325 mg PO BID 05/29/19 03/07/25 History iron) tablet (Iron (ferrous sulfate)) aspirin 81 mg tablet 81 mg PO QDAY 03/01/25 03/07/25 History bumetanide 2 mg tablet 2 mg PO DAILY 03/01/25 03/07/25 History diltiazem HCl 240 mg 240 mg PO Q24H 03/01/25 03/07/25 History capsule,extended release 24 hr Allergies Allergy/AdvReac Type Severity Reaction Status Date / Time Penicillins Allergy Unknown Verified 03/01/25 14:30 Visit Medications Acetaminophen (Acetaminophen 325 Mg Tablet) 650 mg PO Q6H PRN PRN Reason: Fever >101.5 and pain 1-3 Stop: 04/06/25 11:37 Allopurinol (Allopurinol 100 Mg Tablet) 300 mg PO QDAY ROSEMARIE Stop: 04/07/25 08:59 Atenolol (Atenolol 25 Mg Tablet) 25 mg PO BID ROSEMARIE On Hold: 03/07/25 21:00 Stop: 04/06/25 20:59 Diltiazem HCl (Diltiazem Cd 120 Mg Capcr) 240 mg PO Q24H ROSEMARIE On Hold: 03/07/25 13:14 Stop: 04/06/25 11:59 Last Admin: 03/07/25 17:51 Dose: Not Given Heparin Sodium (Porcine) (Heparin Sod Inj 1000 Unit/Ml Vial 10 Ml) 2,700 unit INDWELLCAT PRN PRN PRN Reason: DIALYSIS Stop: 03/21/25 16:48 Last Admin: 03/07/25 17:56 Dose: 2,700 unit Albumin Human (Albuminex 25% Ivpb) 25 gm in 100 mls @ 0 mls/hr IV Q30MIN PRN PRN Reason: To maintain SBP>90 Piperacillin Sod/Tazobactam (Sod 2.25 gm/ Sodium Chloride) 50 mls @ 100 mls/hr IV Q6HR ROSEMARIE; Protocol Stop: 03/14/25 18:29 Last Admin: 03/07/25 20:03 Dose: 100 mls/hr Norepinephrine/Dextrose (Levophed In D5w 8mg/250ml) 8 mg in 250 mls @ 5.124 mls/hr IV .Q24H PRN; Protocol PRN Reason: PER PROTOCOL Stop: 04/06/25 20:56 Last Admin: 03/07/25 21:04 Dose: 0.05 mcg/kg/min, 5.124 mls/hr Vancomycin HCl 1,000 mg/ (Sodium Chloride) 250 mls @ 150 mls/hr IV X1 ONE Stop: 03/07/25 22:39 Levothyroxine Sodium (Levothyroxine Sodium 25 Mcg Tablet) 50 mcg PO ACBR [facility] Stop: 04/07/25 04:59 Midodrine (Midodrine 5 Mg Tablet) 10 mg PO TID PRN PRN Reason: SBP < 90 or MAP < 65 Stop: 04/06/25 21:14 Pharmacy Consult (Vancomycin Pharmacy To Dose 1 Each Each) 1 each IV QDAY [facility] Stop: 04/07/25 08:59 Discontinued Medications Acetaminophen (Acetaminophen 325 Mg Tablet) 650 mg PO X1 ONE Stop: 03/07/25 10:55 Last Admin: 03/07/25 11:07 Dose: 650 mg Aspirin (Aspirin 325 Mg Tablet) 325 mg PO X1 ONE Stop: 03/07/25 10:59 Last Admin: 03/07/25 11:07 Dose: 325 mg Aspirin (Aspirin Ec 81 Mg Tabec) 81 mg PO QDAY [facility] Stop: 04/07/25 08:59 Atenolol (Atenolol 25 Mg Tablet) 25 mg PO X1 ONE Stop: 03/07/25 10:38 Last Admin: 03/07/25 11:08 Dose: 25 mg Bumetanide (Bumetanide 0.5 Mg Tablet) 2 mg PO DAILY ROSEMARIE Stop: 04/07/25 08:59 Epoetin Jax (Epoetin Jax-Epbx Inj 10,000 Unit/Ml Vial (Esrd)) 10,000 unit SC X1 ONE Stop: 03/07/25 12:58 Last Admin: 03/07/25 18:47 Dose: Not Given Heparin Sodium (Beef Lung) (Heparin Sod Lock Syr 100 Unit/Ml) 500 unit STFIELD X1 ONE Stop: 03/07/25 14:07 Last Admin: 03/07/25 14:08 Dose: 500 unit Heparin Sodium (Porcine) (Heparin Sod Inj 5000 Unit/Ml Vial) 3,300 unit 60 unit/kg (3300 unit) IV X1 ONE; Protocol Stop: 03/07/25 11:46 Heparin Sodium (Porcine) (Heparin Sod Inj 5000 Unit/Ml Vial) 1,650 unit 30 unit/kg (1650 unit) IV X1 ONE; Protocol Stop: 03/07/25 14:49 Last Admin: 03/07/25 17:52 Dose: Not Given Ceftriaxone Sodium/Dextrose (Rocephin/D5w 1gm Iv Premix) 1 gm in 50 mls @ 100 mls/hr IV X1 ONE Stop: 03/07/25 10:20 Last Infusion: 03/07/25 10:53 Dose: Infused Sodium Chloride (Ns) 500 mls @ 999 mls/hr IV .Q31M ONE Stop: 03/07/25 10:23 Last Infusion: 03/07/25 10:54 Dose: Infused Heparin Sodium/Dextrose (Heparin In D5w Ivpb) 25,000 unit in 250 mls @ 6.559 mls/hr IV .Q24H ROSEMARIE; Protocol Stop: 03/21/25 10:59 Last Admin: 03/07/25 11:40 Dose: Not Given Sodium Chloride (Ns) 250 mls @ 999 mls/hr IV .Q16M ONE Stop: 03/07/25 12:21 Last Infusion: 03/07/25 12:34 Dose: Infused Piperacillin/Tazobactam/Dextrose (Zosyn) 2.25 gm in 50 mls @ 100 mls/hr IV X1 ONE; Protocol Stop: 03/07/25 12:39 Last Infusion: 03/07/25 13:00 Dose: Infused Heparin Sodium/Dextrose (Heparin In D5w Ivpb) 25,000 unit in 250 mls @ 6.559 mls/hr IV .Q24H ROSEMARIE; Protocol Stop: 03/21/25 13:14 Last Admin: 03/07/25 17:52 Dose: Not Given Ceftriaxone Sodium/Dextrose (Rocephin/D5w 1gm Iv Premix) 1 gm in 50 mls @ 100 mls/hr IV QDAY [facility]IE Stop: 03/15/25 08:59 Piperacillin Sod/Tazobactam (Sod 4.5 gm/ Sodium Chloride) 100 mls @ 200 mls/hr IV Q12HR ROSEMARIE; Protocol Stop: 03/15/25 08:59 Lactated Ringer's (Lactated Ringers) 500 mls @ 999 mls/hr IV .Q31M ONE Stop: 03/07/25 18:40 Last Admin: 03/07/25 18:18 Dose: 999 mls/hr Norepinephrine/Dextrose (Levophed In D5w 8mg/250ml) 8 mg in 250 mls @ 5.124 mls/hr IV .Q24H PRN; Protocol PRN Reason: PER PROTOCOL Stop: 04/06/25 20:56 Levothyroxine Sodium (Levothyroxine Sodium 25 Mcg Tablet) 50 mcg PO QDAY [facility] Stop: 04/07/25 08:59 Lidocaine HCl (Lidocaine Inj Pf 1% 30 Ml Vial) 30 ml INFL X1 ONE Stop: 03/07/25 14:07 Last Admin: 03/07/25 14:08 Dose: 30 ml Midodrine (Midodrine 5 Mg Tablet) 5 mg PO TID [facility] Stop: 04/06/25 21:59 Midodrine (Midodrine 5 Mg Tablet) 5 mg PO X1 ONE Stop: 03/07/25 11:58 Last Admin: 03/07/25 12:04 Dose: 5 mg Midodrine (Midodrine 5 Mg Tablet) 15 mg PO TID [facility] Stop: 04/06/25 21:59 Midodrine (Midodrine 5 Mg Tablet) 10 mg PO X1 ONE Stop: 03/07/25 13:14 Last Admin: 03/07/25 18:14 Dose: Not Given Non-Formulary Medication (Sodium Polystyrene Sulfonate) 15 gm PO QDAY [facility] Stop: 04/07/25 08:59 Assessment & Plan Plan Ms. Washington is a 84 year old [place] lady who is well-known to Dr. Diaz from her practice with past medical history of bronchial asthma with recurrent episodes of exacerbation, COPD, extensive history of hyperuricemia/gout, aortic stenosis s/p TAVR, A-fib on Eliquis, hypertension, hypothyroidism, and HFpEF (follows Dr. Vasquez), CKD IV who presented to [facility] with a chief complaint of generalized weakness for the past day and initially admitted to tele 03/06/25 for sepsis secondary to UTI and troponinemia (uremic cardiomyopathy versus NSTEMI I versus II). Patient was later upgraded to ICU for septic shock. Patient's bedside IVC was not collapsible, and very plethoric at about 3cm, and at this point is not fluid responsive. Patient also received 15mg midodrine, and MAP is still not at goal > 65. NEURO #Acute Encephalopathy Acute confusion and drowsiness likely secondary to uremia in the setting of FRAN and possible sepsis. Differential Diagnosis: Uremic encephalopathy vs Sepsis-associated encephalopathy vs Electrolyte imbalance vs Hypoxemia Diagnostic Tests: Renal panel, BUN, Creatinine, Cultures (blood, urine), CT Brain (if concern for acute intracranial pathology) Treatment: Start emergent hemodialysis for uremia via temporary dialysis catheter placement by IR, Continue strict INOs and daily weights, Avoid nephrotoxic agents (e.g., NSAIDs, ROSEMARIE inhibitors), Temporary dialysis catheter placement (IR), Nephrology following for further need of dialysis Treatment Review: Patient received HD for 2 hours, 2K, ultrafiltration 0 L; Monitor cognitive status post-dialysis. CARDIO #Shock # s/p TAVR with severe prosthetic valve stenosis Differential Diagnosis: Distributive in the setting of sepsis 2/2 UTI vs CAP vs cardiogenic in the setting of s/p TAVR with severe prosthetic valve stenosis Diagnostic Tests: Repeat blood and urine cultures, Chest X-ray, Sputum culture (if sputum is productive), Bedside echo shows decreased contractility, and plethoric IVC Treatment: Continue broad-spectrum antibiotics (Zosyn & Vancomycin), IV fluids given, Midodrine for hypotension, adjust to maintain MAP >65, Monitor lactate levels closely, UO monitoring Treatment Review: Continue monitoring hemodynamics and ensure appropriate fluid management considering underlying cardiorenal syndrome. Limit fluids to avoid exacerbating fluid overload. #Elevated Troponin Differential Diagnosis: Uremic pericarditis vs NSTEMI type II (demand ischemia) vs Pericardial effusion, less likely NSTEMI type I Diagnostic Tests: Serial troponin measurements, EKG to monitor for ST changes, Echocardiogram to assess for pericardial effusion and cardiac function Treatment: ASA 325mg for suspected pericarditis, will hold off on Heparin bolus and heparin drip and reassess as needed d/t elevated troponin more likely relate to demand ischemia from underlying sepsis than NSTEMI type I, Dialysis to reduce uremic toxins Cardiology following, and recommend to hold heparin gtt for now and adequately treat underlying sepsis, trend troponin Treatment Review: If NSTEMI is confirmed, adjust anticoagulation regimen appropriately. Avoid excessive fluids that could worsen cardiac function or pulmonary congestion. #Atrial Fibrillation with Rapid Ventricular Rate, rate now controlled Most likely in Paroxysmal A-fib in the setting of sepsis; patient takes home Eliquis 2.5mg BID Diagnostic Tests: Continuous EKG monitoring, Assessment of heart rate control and rhythm status Treatment:Patient received Atenolol x 1, and will hold home Atenolol 25 mg BID for now d/t low BP, hold home diltiazem, and hold home Eliquis for now d/t low platelet count and f/u repeat CBC, Cardiology following Treatment Review: HR continues to be rate controlled ; Adjust anticoagulation based on risk and dialysis schedule. #Hx of Heart Failure with Preserved Ejection Fraction (HFpEF) Differential Diagnosis: Acute decompensated HFpEF vs HFrEF vs Pulmonary edema vs Fluid overload Diagnostic Tests: Repeat BNP, Chest X-ray for pulmonary congestion, Echocardiogram for assessment of RVSP and valve function, bedside echo showed decreased contractility Treatment: Hold Bumex 2mg for now and monitor any changes for fluid overlap to restart Treatment Review: Ensure fluid management aligns with cardiorenal syndrome and avoid excessive diuresis. PULM #Acute Hypoxic Respiratory Failure 2/2 -improving #PNA DDx: Fluid overload vs Aspiration PNA vs HAP PNA Diagnostic Test: Procal, CXR showed perihilar PNA and recently discharged from hospital three days ago, patient received a total of 750ml bolus, pulse ox Treatment: Broad spectum Abx, f/u cx, sputum culture if productive, wean O2 as tolerated to home O2 requirements Treatment review: Patient is back to home baseline of 2L at night. GI/FEN #Transaminitis DDx: 2/2 shock vs sepsis Dx: LFTs elevated Treatment: Trend LFTs with daily labs and treat underlying sepsis RENAL #FRAN DDx: secondary to prerenal azotemia vs ischemic ATN in the setting of cardiorenal syndrome Dx: BUN, Cr elevated, recent hospitalization but improved with Bumex Treatment: Start emergent hemodialysis for uremia via temporary dialysis catheter placement by IR, Continue strict INOs and daily weights, Avoid nephrotoxic agents (e.g., NSAIDs, ROSEMARIE inhibitors), Nephrology following for further need of dialysis Treatment Review: Patient received HD for 2 hours, 2K, ultrafiltration 0 L; Monitor cognitive status post-dialysis #Anion gap metabolic acidosis #Lactic acidosis DDx: in the setting of sepsis Dx: Anion gap 16, bicarb 19.6; S/p IV NS 500 x1, 250 cc x1, LR 500 cc x1 Rx: Gentle resuscitation with NS given #Hyponatremia, hypovolemic -improving Dx: Initially appeared hypovolemic on exam, Sodium 130, Likely iatrogenic (Bumex at home) Rx: Hold Bumex, Given 750ml bolus NS Gentle resuscitation, Follow up AM renal panel in AM HEME/ONC #Thrombocytopenia DDx: 2/2 sepsis vs drug-induced from Eliquis, vs uremia induced in setting of cardiorenal syndrome vs bone marrow suppression, DIC less likely Dx: CBC, Peripheral Blood Smear, Coag Panel, Renal Panel, LFTs Rx: Monitor daily CBC, will hold Eliquis for today, treat underlying sepsis, monitor for signs of bleeding #Anemia, macrocytic DDx: - Possibly secondary to hypothyroidism Dx: MCV 101, Folate and B12 within normal limits on 03/03 Rx: Follow up reticulocyte count ENDO #Diabetes Type 2 Dx: A1c 5.8. LDL 79. She was taking glipizide in the past but not currently on any medication. Rx: NPO as patient unable to follow commands, Renal/low carb consistent when able to tolerate PO, ISS depending on daily BG levels #Hypothyroidism Dx: Home med includes levothyroxine 50 mg daily Rx: Hold levothyroxine for now,Follow up AM TSH ID #[id number] Dx: UA positive UTI: 39 WBC, + LE, 2+ Bacteria Rx: Morales inserted after patient noted to have UO of 470cc in bladder scan; Urine appears to be yellowish clear; Continue with Abx, F/u Ucx MSK #Gout Rx: Hold home allopurinol Health Maintenance: DVT prophylaxis:SCDs for now GI prophylaxis: None Diet: NPO for now, meds via GT Morales: Yes Lines: PIV Drips: Levophed CODE STATUS: Full code Disposition: Admitted to ICU for shock requiring pressor support Patient's care and plan discussed with my attending, Dr. Vanessa Leiva, PGY-3 Attending Provider Attestation/Addendum I have seen and examined the patient. I was physically present for the bernard portions of the services provided including history, physical exam, diagnosis, treatment plans and orders. I agree with assessment and plan of care as documented by residents. Even though this this note was carefully revised there may still be minor errors in line installer due to voice recognition software. Arnol Mendez MD
[2025-03-07 21:46] LABS: Partial Thromboplastin Time 39.4 Seconds (22.0-36.0)
[2025-03-07 22:03] LABS: Magnesium 1.9 mg/dL (1.6-2.6)
[2025-03-07] MEDS: Vancomycin Inj 1,000 MG in SODIUM CHLORIDE 0.9% 250 ML 250 ML 150 MG IV (22:19)
[2025-03-07 23:20] LABS: Lactate (Lactic Acid) 3.4 mMol/L (0.4-2.0)
[2025-03-07 23:24] LABS: Reflex Lactate? Y
[2025-03-07] MEDS: MIDODRINE 5 MG TABLET 10 MG PO (23:36)
[2025-03-08] VITALS (40 sets, daily range): BP systolic 83–114; BP diastolic 48–74; PULSE 65–102; RESP 8–29; TEMP 36.6; O2SAT 90–99; BMI 32.8
[2025-03-08 00:37] LABS: Alanine Aminotransferase 113 U/L (10-49); Albumin, Serum 3.7 gm/dL (3.4-4.8); Albumin/Globulin Ratio 1.4 (1.2-2.2); Alkaline Phosphatase 47 U/L (46-116); Anion Gap 16 (7-16); Aspartate Amino Transferase 208 U/L (0-34); BUN/Creatinine Ratio 30 Ratio (12-20); Bilirubin,Total 1.0 mg/dL (0.3-1.2); Blood Urea Nitrogen 68 mg/dL (9-23); Calcium 7.9 mg/dL (8.3-10.6); Calcium (Corrected) 8.1 mg/dL (8.5-10.1); Carbon Dioxide 20.8 mMol/L (20.0-31.0); Chloride 97 mMol/L (98-107); Creatinine (Component) 2.3 mg/dL (0.6-1.3); Estimated Creatinine Clearance 12.7 mL/min (>60); Globulin 2.7 gm/dL (2.3-3.5); Glucose 175 mg/dL (74-106); Osmolality,Calculated 291 (275-295); Potassium 3.7 mMol/L (3.4-5.1); Sodium 134 mMol/L (136-145); Total Protein 6.4 gm/dL (5.7-8.2); eGFR 20 See Note
[2025-03-08 02:19] LABS: Reflex Lactate? Y
[2025-03-08 02:45] LABS: Lactic Acid, 3 HR 3.6 mMol/L (0.4-2.0)
--- NOTE | 2025-03-08 04:25 | XR_ITS ---
Examination: CT brain head without contrast. 2-D sagittal coronal reconstructions Date and time of exam: March 08, 2025, 0440 hours, comparison March 29, 2024 INDICATIONS: Stroke alert, anisocoria altered mental status today CTDI: vol (mGy): 49.7 DLP: (mGycm): 1001 Technique: Multiple CT axial sections of the brain have been obtained, 5 mm slice thickness. Contrast has not been administered. 2-D sagittal, coronal reconstructions have been obtained Low dose protocols were performed. One or more of the following dose reduction techniques were used; automated exposure control, adjustment of the mA and/or KV according to patient size, use of iterative reconstruction technique. Findings: Foci of acute subarachnoid hemorrhage in both frontal lobes and left parietal lobe Ventricles are not enlarged No mass effect upon the ventricular system Bilateral cerebellar infarcts not visualized on the prior study, age-indeterminate Fourth ventricle midline Cranial vault intact IMPRESSION: Foci of subarachnoid hemorrhage in both frontal lobes and left parietal lobe Bilateral cerebellar infarcts, age-indeterminate
--- NOTE | 2025-03-08 04:25 | PC.NURSE ---
teleneuro activated case numver [id number]
--- NOTE | 2025-03-08 04:56 | PD.TNEURO ---
Tele Neuro Consultation Consultation Date 03/08/25 Most Recent Vital Signs Last Vital Signs Temp 97.8 F 03/08/25 00:00 Pulse 83 03/08/25 03:16 Resp 18 03/08/25 03:16 BP 93/50 L 03/08/25 03:00 Pulse Ox 94 L 03/08/25 03:16 O2 Del Method Nasal Cannula 03/07/25 17:37 O2 Flow Rate 2 03/08/25 03:16 FiO2 4 03/07/25 15:13 Laboratory-Coagulation Panel PT 13.9 Seconds (9.0-12.2) H D 03/07/25 09:48 INR 1.3 (0.9-1.3) 03/07/25 09:48 APTT 39.4 Seconds (22.0-36.0) H 03/07/25 20:16 Consultation Narrative [facility] TeleNeurology Consult Services Patient Name:???Tessa Washington Date of :???1940 Identification Number:??? Date of Service:???03/08/2025 04:22:41 Diagnosis:?G93.49 - Encephalopathy Multifactorial Impression: ?Patient is an 84-year-old lady past medical history significant for A-fib not presently on anticoagulants, hypertension who was admitted to the hospital with generalized weakness and uremic encephalopathy. ?Stroke alert is activated today for unequal pupils. ? ?Stroke alert activated for anisocoria. ?CT head does not reveal any acute abnormalities. ?Patient not a thrombolytic candidate as she is out of window. ?Do not proceed with CT angiograms as patient is recovering from kidney injury. Recommend stat MRI brain and MRA head and neck. If large vessel occlusion or aneurysm seen recommend endovascular consult. Our recommendations are outlined below. Recommendations: ? Stroke/Telemetry Floor ? Neuro Checks (Q4) ? Bedside Swallow Eval ? DVT Prophylaxis ? IV Fluids, Normal Saline ? Head of Bed 30 Degrees ? Euglycemia and Avoid Hyperthermia (PRN Acetaminophen) ? Initiate or continue Aspirin 325 MG daily ?Normotensive BP goals Sign Out: ? Discussed with Primary Attending Advanced Imaging:Advanced Imaging Deferred because: Advanced Imaging not obtained at this time. Reason: Kidney injury Metrics: Last Known Well: 03/08/2025 00:00:43 Activation Time: 03/08/2025 04:22:41 Initial Response Time: 03/08/2025 04:23:39Symptoms: unequal pupils. Initial patient interaction: 03/08/2025 04:26:25 NIHSS Assessment Completed: 03/08/2025 04:53:42Patient is not a candidate for Thrombolytic. Thrombolytic Medical Decision: 03/08/2025 04:53:43Patient was not deemed candidate for Thrombolytic because of following reasons: LKW outside 4.[address] Head: I personally reviewed all the CT images that were available to me and it showed: no acute abnormalities Primary Provider Notified of Diagnostic Impression and Management Plan on: 03/08/2025 04:35:27 Spoke With: Dr. Leiva A[facility] to Re[facility] 03/08/2025 04:35:27 History of Present Illness:Patient is a 84 year old Female. Inpatient stroke alert was called for symptoms of unequal pupils. Patient is an 84-year-old lady past medical history significant for A-fib not presently on anticoagulants, hypertension who was admitted to the hospital with generalized weakness and uremic encephalopathy. Stroke alert is activated today for unequal pupils. Patient was last seen normal at 12 AM this morning. At baseline has been able to say short phrases and she reportedly had equal pupils. This morning her right pupil was noted to be 2 mm and the left pupil was noted to be 4 mm. No other focal neurologic deficits noted. Neurology is consulted. Of note patient had uremic encephalopathy during this admission. She has had 1 dialysis session. She has also taken Eliquis in the past for A-fib but is not presently on it. ? Past Medical History: ?Hypertension ?Atrial Fibrillation Medications: No Anticoagulant use? Antiplatelet use:?Yes?Asa Reviewed EMR for current medications Allergies:? NKDA Social History: Drug Use: No Family History: There is no family history of premature cerebrovascular disease pertinent to this consultation ROS : 14 Points Review of Systems was performed and was negative except mentioned in HPI. Past Surgical History: There Is No Surgical History Contributory To Today?s Visit ? Examination: BP(93/50),?Pulse(83), 1A: Level of Consciousness - Arouses to minor stimulation?+ 1 1B: Ask Month and Age - Could Not Answer Either Question Correctly?+ 2 1C: Blink Eyes & Squeeze Hands - Performs 0 Tasks?+ 2 2: Test Horizontal Extraocular Movements - Normal?+ 0 3: Test Visual Balderas - No Visual Loss?+ 0 4: Test Facial Palsy (Use Grimace if Obtunded) - Normal symmetry?+ 0 5A: Test Left Arm Motor Drift - Some Effort Against Dennis?+ 2 5B: Test Right Arm Motor Drift - Some Effort Against Dennis?+ 2 6A: Test Left Leg Motor Drift - Some Effort Against Dennis?+ 2 6B: Test Right Leg Motor Drift - Some Effort Against Dennis?+ 2 7: Test Limb Ataxia (FNF/Heel-Coleman) - No Ataxia?+ 0 8: Test Sensation - Normal; No sensory loss?+ 0 9: Test Language/Aphasia - Severe Aphasia: Fragmentary Expression, Inference Needed, Cannot Identify Materials?+ 2 10: Test Dysarthria - Severe Dysarthria: Unintelligble Slurring or Out of Proportion to Aphasia?+ 2 11: Test Extinction/Inattention - No abnormality?+ 0 NIHSS Score:?17 Pre-Morbid Modified Cross Scale: 0 Points = No symptoms at all Spoke with :?Dr. Leiva This consult was conducted in real time using interactive audio and video technology. Patient was informed of the technology being used for this visit and agreed to proceed. Patient located in hospital and provider located at home/office setting. Patient is being evaluated for possible acute neurologic impairment and high probability of imminent or life-threatening deterioration. I spent total of 45 minutes providing care to this patient, including time for face to face visit via telemedicine, review of medical records, imaging studies and discussion of findings with providers, the patient and/or family. Dr Eligio Quintero [facility] For Inpatient follow-up with [facility] physician please call [facility] at . As we are not an outpatient service for any post hospital discharge needs please contact the hospital for assistance. If you have any questions for the [facility] physicians or need to reconsult for clinical or diagnostic changes please contact us via [facility] at . Non-radiologist review of imaging performed to assist with emergent clinical decision-making. Remote physician workstations do not possess the same resolution, calibration, or diagnostic capabilities as hospital-based radiology reading stations, and formal radiologist read is necessary. Signature :Akilah Quintero
--- NOTE | 2025-03-08 05:03 | EKG_ITS ---
[facility] Test Date: 2025-03-08 Pat Name: HALLE EASLEY [facility] Gender: Female Professor Of Biological Sciences: JOSE ALEJANDROG3 : 1940 Requested By: Loretta Leiva Order Number: [id number] Reading MD: Loretta Levia Measurements Intervals [place] Rate: 89 P: WI: QRS: -37 QRSD: 113 T: 97 QT: 420 QTc: 513 Interpretive Statements ATRIAL FIBRILLATION MARKED LEFT AXIS DEVIATION MODERATE INTRAVENTRICULAR CONDUCTION DELAY NONSPECIFIC ST & T-WAVE ABNORMALITY Compared to ECG 03/07/2025 21:41:22 Intraventricular conduction delay now present T-wave abnormality still present /store/S0/[id number].pdf
[2025-03-08 05:12] LABS: Lactate (Lactic Acid) 2.8 mMol/L (0.4-2.0)
[2025-03-08 05:16] LABS: Basophils # (Auto) 0.1 Thou/mm3 (0.0-0.2); Basophils % (Auto) 0 % (0-2.5); Eosinophils # (Auto) 0.0 Thou/mm3 (0.0-0.5); Eosinophils % (Auto) 0 % (0-10); Hematocrit 28.5 % (36.0-46.0); Hemoglobin 9.1 g/dL (12.0-16.0); Immature Granulocytes Auto 0.66 Thou/mm3 (0.00-0.00); Immature Reticulocyte Fraction 25.7 % (3.0-15.9); Lymphocytes # (Auto) 0.3 Thou/mm3 (1.0-4.8); Lymphocytes % (Auto) 1 % (10-50); Mean Corpuscular HGB Conc 31.9 g/dl (31.0-37.0); Mean Corpuscular Hemoglobin 31.7 pg (25.0-35.0); Mean Corpuscular Volume 99 fL (80-100); Monocytes # (Auto) 0.8 Thou/mm3 (0.0-0.8); Monocytes % (Auto) 3 % (0-12); Neutrophils # (Auto) 22.9 Thou/mm3 (1.8-7.7); Neutrophils % (Auto) 93 % (37-80); Nucleated Red Blood Cell # 0.12 Thou/mm3 (0.00-0.00); Nucleated Red Blood Cell % 1 /100 WBC (0); RDW Standard Deviation 53.9 fL (36.4-46.3); Red Blood Count 2.87 Miln/mm3 (4.00-5.20); Reticulocyte % (Auto) 3.4 % (0.5-1.5); Reticulocyte Absolute Auto 96.7 Biln/L (25.0-75.0); Reticulocyte Hgb Content 32.3 pg (28.0-35.0); White Blood Count 24.8 Thou/mm3 (3.6-11.0)
[2025-03-08 05:22] LABS: Platelet Count 20 Thou/mm3 (140-440)
[2025-03-08 05:28] LABS: INR 1.6 (0.9-1.3); Partial Thromboplastin Time 36.4 Seconds (22.0-36.0); Prothrombin Time 16.1 Seconds (9.0-12.2)
[2025-03-08 05:42] LABS: Alanine Aminotransferase 219 U/L (10-49); Albumin, Serum 3.6 gm/dL (3.4-4.8); Albumin/Globulin Ratio 1.4 (1.2-2.2); Alkaline Phosphatase 48 U/L (46-116); Anion Gap 14 (7-16); Aspartate Amino Transferase 382 U/L (0-34); BUN/Creatinine Ratio 29 Ratio (12-20); Bilirubin,Total 0.9 mg/dL (0.3-1.2); Blood Urea Nitrogen 70 mg/dL (9-23); Calcium 8.0 mg/dL (8.3-10.6); Calcium (Corrected) 8.3 mg/dL (8.5-10.1); Carbon Dioxide 20.7 mMol/L (20.0-31.0); Chloride 100 mMol/L (98-107); Creatinine (Component) 2.4 mg/dL (0.6-1.3); Estimated Creatinine Clearance 12.2 mL/min (>60); Globulin 2.6 gm/dL (2.3-3.5); Glucose 151 mg/dL (74-106); Magnesium 1.9 mg/dL (1.6-2.6); Osmolality,Calculated 293 (275-295); Phosphorous 6.1 mg/dL (2.4-5.1); Potassium 3.7 mMol/L (3.4-5.1); Sodium 135 mMol/L (136-145); Thyroid Stimulating Hormone 8.99 uIU/mL (0.55-4.78); Total Protein 6.2 gm/dL (5.7-8.2); eGFR 19 See Note
[2025-03-08] MEDS: PIPER/TAZO 3.375 GM PREMIX 3.375 GM/50 ML BAG IV (05:51)
[2025-03-08] MEDS: MIDODRINE 5 MG TABLET 10 MG PO (05:51)
--- NOTE | 2025-03-08 05:56 | PD.RESEVENT ---
Documentation for date of: 03/08/25 Event Note Event Note: Stroke alert initiated at 04:28 after pupil size was noted to be unequal, R pupil 2mm and L pupil 4mm. No other new neuro deficits noted, and still able to move her extremities and communicate with 1 sentence phrases. Tele-neuro at the time of presentation recommended no CTA at the time d/t no acute findings noted on CT imaging, and recommended to get a MRI brain and MRA brain and neck, along with other stroke protocol measures d/t patient's renal dysfunction. Shortly after however, tele radiology spoke with typewriter operator automatic and informed that there is an acute subarachnoid hemorrhage in b/l frontal lobes and left posterior temporal lobe. Informed findings to tele-neurologist via phone, and recommended to get CTA Head and Neck if family and patient want to be aggressive as well as a stat neurosurgery consult, requiring us to initiate transfer. Informed patient's sonNithin about findings and recommendations, and would like to proceed with transfer process. Spoke with medical device assembler, Dr. Diaz and agrees to go ahead with CTA Head and Neck to complete stroke workup. Labs also noted to be significant for elevated troponin to 17 and platelet count to 20K. Patient's care and plan discussed with my attending, Dr. Vanessa Leiva, PGY-3
--- NOTE | 2025-03-08 06:44 | PC.CC ---
Called [facility] - due to hospital capacity, unable to take pt - Facesheet sent Called [facility] - accepted from Inpatient to ED transfer - forms, images sent Accepting is [facility] Called [facility] - declined due to weather, will check if crew can come and assist with ground transfer @ 0730 Called [facility] - forms sent. - Will lease picker at 0730 [facility] notified
--- NOTE | 2025-03-08 06:45 | ESDS_ITS ---
Planned Discharge Date 03/08/25 DS: Providers Provider Date of admission: 03/07/25 11:54 Primary care physician: Yessy Diaz MD Admitting Provider: Yessy Diaz MD Attending Provider on Admission: Yessy Diaz MD Consults: 03/07/25 15:04 Consult to Cardiology Routine Comment: Consulting Provider: Sergio Vasquez 03/07/25 19:21 Referral Physical Therapy Stat Comment: Physician Instructions: Referral Respiratory Therapy Stat Comment: Referral Speech Therapy Stat Comment: Attending Provider on DC: Loretta Leiva MD Discharging Provider: Loretta Leiva MD DS: Diagnosis Problem List Completed Was Problem List Reviewed/Reconciled?: Yes Hospital Course Hospital Course Hospital course: Ms. Washington is a 84 year old [place]kin[place] lady who is well-known to Dr. Diaz from her practice with past medical history of bronchial asthma with recurrent episodes of exacerbation, COPD, extensive history of hyperuricemia/gout, aortic stenosis s/p TAVR, A-fib on Eliquis, hypertension, hypothyroidism, and HFpEF (follows Dr. Vasquez), CKD IV who presented to [facility] with a chief complaint of generalized weakness for the past day and admitted to tele 03/06/25 for sepsis secondary to UTI and troponinemia (uremic cardiomyopathy versus NSTEMI I versus II). Patient was later upgraded to ICU for septic shock requiring pressor support after not responding to Midodrine and not fluid responsive. Patient started on IV Abx (Vancomycin & Zosyn for her ongoing septic shock in the setting of UTI vs PNA, scheduled midodrine with cultures pending. Despite receiving fluids, patient hasn't had much UO, and bladder scan revealed about 450cc, and rubi catheter was placed,. UO has now decreased to 10-15ml/hr. Patient earlier that day, received a temporary dialysis catheter to receive emergent dialysis, and patient received a session earlier yesterday afternoon. In addition, patient received ASA 325 mg for suspected pericarditis d/t possible uremic pericardiits vs NSTEMI type II demand ischemia. Troponin has also been uptrending from 1 to now 17, however cardiology at this time recommends to continue to trend troponin and hold off on heparin gtt d/t underlying sepsis. Patient's A-fib has been well-controlled, and serial EKGs not showing any ST changes, and will hold Eliquis for now in the setting of low platelets. Patient is progressing back to patient's home O2 requirements of 2L NC. Around 04:28 on 03/08/25, stroke alert initiated after pupil size was noted to be unequal, R pupil 2mm and L pupil 4mm. No other new neuro deficits noted, and still able to move her extremities and communicate with 1 sentence phrases. Tele-neuro at the time of presentation recommended no CTA at the time d/t no acu te findings noted on CT imaging, and recommended to get a MRI brain and MRA brain and neck, along with other stroke protocol measures d/t patient's renal dysfunction. Shortly after however, tele radiology spoke with gag writer and informed that there is an acute subarachnoid hemorrhage in b/l frontal lobes and left posterior temporal lobe. Informed findings to tele-neurologist via phone, and recommended to get CTA Head and Neck if family and patient want to be aggressive as well as a stat neurosurgery consult, requiring us to initiate transfer. Informed patient's sonNithin about findings and recommendations, and would like to proceed with transfer process. Spoke with electronics tech, Dr. Diaz and agrees to go ahead with CTA Head and Neck to complete stroke workup. Labs also noted to be significant for elevated troponin to 17 and platelet count to 20K today. Patient is currently on 2L NC, satting > 98%, with BP of 107/68 on 0.09mcg/kg Levophed, with rate controlled at 92. Patient was accepted for emergency transfer at [facility], with accepting physician Dr. Mills, neurosurgery. Patient will be transported via ambulance at 07:30AM. Family and attending physicians notified. Hospital diagnoses being treated: #Acute Encephalopathy #Acute CVA #Subarachnoid hemorrhage #Shock # s/p TAVR with severe prosthetic valve stenosis #Elevated Troponin #Atrial Fibrillation with Rapid Ventricular Rate, rate now controlled #Hx of Heart Failure with Preserved Ejection Fraction (HFpEF) #Acute Hypoxic Respiratory Failure 2/2 -improving #PNA #Transaminitis #FRAN #Anion gap metabolic acidosis #Lactic acidosis #Hyponatremia, hypovolemic -improving #Thrombocytopenia #Anemia, macrocytic #Diabetes Type 2 #Hypothyroidism #UTI #Gout Patient's care and plan discussed with my attending, Dr. Mendez. Loretta Leiva, PGY-3 Status at Discharge Cognitive/behavioral status at discharge: stable Functional status at discharge: bed bound Overall status at discharge: patient is not back to baseline Time Spent with Patient Time attestation: Total time spent providing and/or coordinating discharge services: 40 minutes Time spent: Greater than 30 minutes Exam Vital Signs Temp Pulse Resp BP Pulse Ox O2 Del Method O2 Flow Rate 97.9 F 93 20 100/65 99 Nasal Cannula 2 03/08/25 04:00 03/08/25 06:38 03/08/25 06:38 03/08/25 06:00 03/08/25 06:38 03/07/25 17:37 03/08/25 06:38 FiO2 4 03/07/25 15:13 Narrative Exam General: Lethargic, unable to answer questions appropriately. A&O x 0. Saturating well on 2L NC. HEENT: Normocephalic, atraumatic, mucous membranes dry. Pupils are 2mm on right and 4mm on left, but reactive to light. Heart: Irreguarly, irregular, normal S1 and S2, 3/5 systolic murmur with click in second right intercostal space. Lungs: Coarse breath sounds heard diffusely. Abdomen: Soft, nondistended, nontender, positive bowel sounds. No guarding or rebound tenderness. Neurologic: Alert, oriented x0, patient able to move all 4 extremities. 2/5 strength in right lower extremity, 3/5 in left lower. 4/5 strength in upper extremities. Extremities: 1+ pitting edema in right lower extremity, up to calf. No edema in left lower leg. Skin: No rash. Some bruising in upper extremities. Discharge Plan Plan Patient Disposition: [facility] Pt Being Transferred to: [facility] Service Needed for Transfer: Neurosurgery Patient condition on transfer: Stable Prescriptions/Referrals Prescriptions/Med Rec: No Action levothyroxine [Synthroid] 50 mcg Tablet 50 mcg PO QDAY allopurinol 300 mg Tablet 300 mg PO QDAY albuterol sulfate [Ventolin HFA] 90 mcg/actuation Hfa Aerosol Inhaler 2 puff inhalation Q8H PRN (Reason: SOB) ferrous sulfate [Iron (ferrous sulfate)] 325 mg (65 mg iron) Tablet 325 mg PO BID bumetanide 2 mg tablet 2 mg PO DAILY Patient Comments: TAKE 1 TABLET BY MOUTH EVERY DAY diltiazem HCl 240 mg capsule,extended release 24hr 240 mg PO Q24H aspirin 81 mg tablet 81 mg PO QDAY atenolol 25 mg Tablet 25 mg PO BID Qty: 60 0RF Eliquis 2.5 mg Tablet 2.5 mg PO BID Qty: 60 0RF sodium polystyrene sulfonate 15 gram powder 15 g PO QDAY 30 Days Qty: 454 0RF midodrine 5 mg tablet 5 mg PO TID Qty: 90 0RF Rx Instructions: do not give last dose of day after 6PM or within 4 hrs of bedtime diltiazem HCl [Cardizem CD] 240 mg capsule,extended release 24hr 240 mg PO QAM Qty: 30 0RF Referrals: Yessy Diaz MD [Primary Care Provider, Nephrology] Patient/Caregiver Discharge Instructions Print Language: Tajik Stand Alone Forms: Juliana Award Info., Patient Portal Info Letter Discharge Order Discharge Orders: Discharge (Routine); Ordered 03/08/25 Ordered By: Yessy Diaz Quality Discharge Quality Measures VTE prophylaxis, stroke Statin ordered >75 y/o:moderate or high intensity dose on DC: no Statin ordered <75 y/o: high intensity dose on DC: no Statin not ordered due to:: medical contraindicated (elevated LFTs) Anticoagulation ordered for A-fib or flutter (current or hx): contraindicated (low platelets ) Antithrombotic ordered on DC: contraindicated (describe) (patient has a subarachnoid hemorrhage on CT Head ) and sepsis MD Attestestation MD Attestation I have seen and examined the patient. I was physically present for the bernard portions of the services provided including history, physical exam, diagnosis, treatment plans and orders. I agree with assessment and plan of care as documented by residents. Even though this this note was carefully revised there may still be minor errors in cartography supervisor due to voice recognition software. Arnol Mendez MD
--- NOTE | 2025-03-08 07:09 | PC.CC ---
Attempted to call [facility] Ems triage @ [phone] to give report about patient but no answer.
[2025-03-08 08:05] LABS: Vancomycin,Random 13.7 mcg/mL
[2025-03-08 08:10] LABS: Reflex Lactate? Y
[2025-03-08] MEDS: SODIUM CHLORIDE 3%(Hypertonic) 50 ML in PRE-MIXED 1 BAG 40 ML IV (08:16)
[2025-03-08] MEDS: levETIRAcetam INJ 100 MG/ML VIAL 5ML 500 MG IVP (08:16)
--- NOTE | 2025-03-08 08:45 | PC.NURSE ---
patient in room 257, [facility], report was given to EMS triage and and REACH pt left with EMS team/reach at 0830
[2025-03-08 12:11] LABS: Slide Review Platelets confirmed
[2025-03-08 12:41] LABS: Path Review Blood Smear Sent to Pathologist
== END 2025-03-08 08:30 | disposition short-term general hospital (02) | DRG 871 ==
LOC: SERX 11:54 → SERHOLD 11:56 → S2SX 17:37
PROVIDERS: Student in an Organized Health Care Education/Training Program; Admitting Provider Internal Medicine; PCP Internal Medicine; Visit Provider Internal Medicine
DX: A41.9 Sepsis, unspecified organism (principal); G93.41 Metabolic encephalopathy; R65.21 Severe sepsis with septic shock; N17.0 Acute kidney failure with tubular necrosis; J18.9 Pneumonia, unspecified organism; J96.01 Acute respiratory failure with hypoxia; I60.9 Nontraumatic subarachnoid hemorrhage, unspecified; G93.49 Other encephalopathy; I13.0 Hypertensive heart and chronic kidney disease with heart failure and stage 1 through stage 4 chronic kidney disease, or unspecified chronic kidney disease; I50.32 Chronic diastolic (congestive) heart failure; N39.0 Urinary tract infection, site not specified; E87.1 Hypo-osmolality and hyponatremia; E87.20 Acidosis, unspecified; J44.0 Chronic obstructive pulmonary disease with (acute) lower respiratory infection; N18.4 Chronic kidney disease, stage 4 (severe); E11.22 Type 2 diabetes mellitus with diabetic chronic kidney disease; Z99.81 Dependence on supplemental oxygen; Z95.2 Presence of prosthetic heart valve; Z79.01 Long term (current) use of anticoagulants; I48.91 Unspecified atrial fibrillation; M10.9 Gout, unspecified; E03.9 Hypothyroidism, unspecified; H57.02 Anisocoria; D53.9 Nutritional anemia, unspecified; E86.1 Hypovolemia; J44.89 Other specified chronic obstructive pulmonary disease; Z79.899 Other long term (current) drug therapy; D69.6 Thrombocytopenia, unspecified; Z79.82 Long term (current) use of aspirin
CPT/HCPCS: 36415; 51701; 70450; 70496; 70498; 71045; 76937; 77001; 80053; 80202; 81001; 82803; 83605; 83615; 83690; 83735; 83880; 84100; 84145; 84443; 84484; 85025; 85046; 85610; 85730; 87040; 87077; 87086; 87186; 87635; 93005; 93225; 93306; 96365; 99285; A4649; C1751; C1894; J0696; J1642; J1643; J1953; J2543; J3373; J3490; J7050; J7120; J7131; J7999; Q9967; A9270